=== PATIENT | female | born 1945 | race Caucasian/White ===

== ENCOUNTER 2020-03-04 15:09 | Outpatient (REF) | payer MEDICARE, SELFPAY | END 2020-03-04 15:10 | disposition home or self-care (01) | LOC: HO.HMGCLDS 15:09 | PROVIDERS: PCP Internal Medicine; Visit Provider Internal Medicine | DX: Z20.828 Contact with and (suspected) exposure to other viral communicable diseases (principal) | CPT/HCPCS: 87635 ==

== ENCOUNTER 2020-06-17 11:49 | Outpatient (REF) | payer MEDICARE, SELFPAY ==
--- NOTE | 2020-06-17 12:02 | XR_ITS ---
EXAMINATION: THORACIC AND LUMBAR SPINE CLINICAL INFORMATION: Low back pain. COMPARISON: None TECHNIQUE: 3 views dorsal spine. 3 views lumbar spine. FINDINGS: DORSAL SPINE: There is normal thoracic kyphosis. There is old T12 compression fracture with cement augmentation. No new acute fracture, dislocation or subluxation seen. No bony abnormality. No lytic process. The paravertebral soft tissues are normal. LUMBAR SPINE: There is normal lumbar lordosis. There is grade 1 anterolisthesis L5 over S1 with loss of L5-S1 disc height. Rest of the disc heights are normal. The vertebral heights are normal. No acute fracture seen. Mild bilateral L5-S1 and L4-L5 facet joint arthropathy is noted. The paravertebral soft tissues are normal XR/XR thoracic spine 3V IMPRESSION: Old T12 compression fracture with cement augmentation. No new acute fracture, dislocation or subluxation seen. Grade 1 anterolisthesis L5 over S1 with loss of L5-S1 disc height. There are is bilateral L5-S1 facet joint arthropathy.
--- NOTE | 2020-06-17 12:02 | XR_ITS ---
EXAMINATION: THORACIC AND LUMBAR SPINE CLINICAL INFORMATION: Low back pain. COMPARISON: None TECHNIQUE: 3 views dorsal spine. 3 views lumbar spine. FINDINGS: DORSAL SPINE: There is normal thoracic kyphosis. There is old T12 compression fracture with cement augmentation. No new acute fracture, dislocation or subluxation seen. No bony abnormality. No lytic process. The paravertebral soft tissues are normal. LUMBAR SPINE: There is normal lumbar lordosis. There is grade 1 anterolisthesis L5 over S1 with loss of L5-S1 disc height. Rest of the disc heights are normal. The vertebral heights are normal. No acute fracture seen. Mild bilateral L5-S1 and L4-L5 facet joint arthropathy is noted. The paravertebral soft tissues are normal XR/XR lumbar spine 2-3V IMPRESSION: Old T12 compression fracture with cement augmentation. No new acute fracture, dislocation or subluxation seen. Grade 1 anterolisthesis L5 over S1 with loss of L5-S1 disc height. There are is bilateral L5-S1 facet joint arthropathy.
== END 2020-06-17 11:50 | disposition home or self-care (01) ==
LOC: HO.HMGCX 11:49
PROVIDERS: PCP Internal Medicine; Visit Provider Nurse Practitioner Family
DX: S39.92XA Unspecified injury of lower back, initial encounter (principal)
CPT/HCPCS: 72072; 72100

== ENCOUNTER 2021-12-06 10:47 | Outpatient (REF) | payer MEDICARE, SELFPAY ==
--- NOTE | ~2021-12-06 | XR_ITS ---
EXAMINATION: XR KNEE, RIGHT CLINICAL INFORMATION: Right knee pain. COMPARISON: None. TECHNIQUE: 4 views of the right knee. FINDINGS: Mild medial compartment joint space narrowing. Mild medial and lateral compartment chondrocalcinosis. Small joint effusion. No fracture or dislocation. Superior patellar enthesophytes. XR/XR knee RT 4V IMPRESSION: Mild medial compartment arthrosis with medial and lateral compartment chondrocalcinosis. Small joint effusion.
== END 2021-12-06 10:48 | disposition home or self-care (01) ==
LOC: HO.HMGCX 10:47
PROVIDERS: PCP Internal Medicine; Visit Provider Physician Assistant
DX: M25.561 Pain in right knee (principal)
CPT/HCPCS: 73564

== ENCOUNTER 2025-01-16 14:08 | Outpatient (REF) | payer MEDICARE, SELFPAY ==
--- OUTSIDE RECORDS SUMMARY | 2024-03-28 10:48 | XMS_ITS | Encounter Summary ---
Author Organization [facility] [place] [address] Care Team Providers Care Field Crop I Farmworker Name Role Phone Zeke Carlos MD Primary Care Provider [phone] Encounter Details Date Type Department Care Team (Late st Contact Info) Description 03/28/2024 10:48 AM EDT Hospital Encounter TH HISTORIC ENCOUNTERS EASTERN CONVERSION ONLY Kishan Flynn MD [address] [place] [address] [address] Social History Tobacco Use Types Packs/Day Years Used Date Smoking Tobacco: Former Cigarettes Q uit: 01/08/2018 Smokeless Tobacco: Never Alcohol [...] your loved ones. For example, child care centre director or elderly care for an older [...] Date Recorded What is your living situation? 0 10/14/2024 Interpersonal Safety Answer Date Record ed Physical Abuse 04/14/2024 Verbal Abuse 04/14/2024 Comments No Sex and Gender Information Value Date Recorded Sex Assigned at Female 03/28/2024 10:43 AM EDT Legal Sex Female 2:24 AM EST Gender Identity Female 03/28/2024 10:43 AM EDT Sexual Orientation Straight 03/28/2024 10 :43 AM EDT documented as of this encounter Plan of Treatment Upcoming Encounters Date Type Department Care Team (Late st Contact Info) Description 03/02/2025 10:00 AM EDT Ancillary Procedure [facility] - [address] [place] [address] 04/06/2025 10:00 AM EST Office Visit [facility] Hematology Oncology [address] [place] [id number] Kathy Rene DO [address] [place] [address] 04/13/2025 10:30 AM EST Office Visit Vascular Surgery - [place] [address] [address] Ronen Vernon MD [address] [address] 05/06/2025 9:45 AM EST Office Visit Adult Medicine [facility] [place] [address] [place] [address] Zeke Carlos MD [address] [place] [address] documented as of this encounter Procedures Procedure Name Priority Date/Time Associated Diagnosis Comments DR ABDOMEN FLAT AND ERECT Routine 03/28/2024 11:37 AM EDT documented in this encounter Results * DR ABDOMEN FLAT AND ERECT (03/28/2024 11:37 AM EDT) Anatomical Region Laterality Modality Radiographic Leatha ging 03/28/2024 10:5 4 AM EDT Narrative 03/28/2024 11:37 AM EDT [facility] Diagnostic Imaging Department [address] [place] [address] Patient: CYNDIBURKEPRINCESS PEREZ D.O.B./Age/Sex: 1945 - 78 - F Unit#: [id number] Location/Status: SPDIGEN/REG CLI Mnemonic[facility] Ordering Physician: KISHAN FLYNN MD DR Abdomen [...] seen. IMPRESSION: Nonobstructive bowel gas pattern. Code 36981 Dictating Physician: YESI KULKARNI MD Electronically Signed by: YESI KULKARNI MD Dic Date/Time: 03/28/24 1136 Sign date/Time: 03/28/24 1137 Procedure Note Yesi Kulkarni MD - 03/29/2024 [facility] Diagnostic Imaging Department [address] [place], [place] [id number] Patient: PRINCESS EUCEDA Melissa AlbrechtB./Age/Sex: 1945 - 78 - F Unit#: [id number] Location/Status: SPDIGEN/REG CLI Mnemonic/Ordering Site: [facility] Ordering Physician: KISHAN FLYNN MD DR Abdomen [...] seen. IMPRESSION: Nonobstructive bowel gas pattern. Code 52407 Dictating Physician: YESI KULKARNI MD Electronically Signed [...] documented as of this encounter Care Teams Field Crop I Farmworker Relationship Specialty Start Date End Date Zeke Carlos MD [address] [place] [address] PCP - General Internal Medicine 03/16/21 documented as of this encounter
--- OUTSIDE RECORDS SUMMARY | 2025-01-17 11:27 | XMS_ITS | Clinical Summary ---
Author Organization [facility] Address [address] [place] [address] Phone Care Team Providers Care Tunnel Heading Supervisor Name Role Phone JeradParminder Ursulasneha Adams DO [...] [employer] [place] [employer]AC[employer] Care Teams Tunnel Heading Supervisor Relationship Specialty Start Date End Date Ursula Alcala DO [address] [place] [address] PCP - General Internal Medicine 12/24/18 Additional Source Comments The information contained in this document represents components of the legal health record. It is not the complete legal health record.[facility]
--- OUTSIDE RECORDS SUMMARY | 2025-01-17 11:27 | XMS_ITS | Encounter Summary ---
Author Organization [facility] Address [address] [place] [address] Care Team Providers Care Patient Services Manager Name Role Phone Zeke Carlos MD Primary Care Provider [phone] Encounter Details Date Type Department Care Team Description 04/25/2021 E-Visit [facility] Oncology Services [address] [place] [address] Aki Peña MD Social History Tobacco Use [...] on filedocumented in this encounter Care Teams Patient Services Manager Relationship Specialty Start Date End Date Zeke Carlos MD PCP - General Internal Medicine 11/23/21 documented as of this encounter
[2025-01-17 12:10] LABS: Resp Syncy Virus RNA Qual PCR NEGATIVE (Negative); SARS COV2 PCR INHOUSE NEGATIVE (Negative)
== END 2025-01-16 14:09 | disposition home or self-care (01) ==
LOC: HO.LNP 14:08
PROVIDERS: PCP Internal Medicine; Visit Provider Physician Assistant Medical
DX: J00 Acute nasopharyngitis [common cold] (principal); J06.9 Acute upper respiratory infection, unspecified; R09.89 Other specified symptoms and signs involving the circulatory and respiratory systems; H92.01 Otalgia, right ear
CPT/HCPCS: 87637; 99212

== ENCOUNTER 2025-01-16 14:08 | Outpatient (AMB) | payer MEDICARE, SELFPAY ==
--- OUTSIDE RECORDS SUMMARY | 2023-09-12 10:30 | XMS_ITS ---
Author Organization [facility] Address [address] [place] [address] Care Team Providers Care Bolter Helper Name Role Phone Breanna VÁSQUEZ, Zeke Blake Primary Care Provider Unav ailable Black, Shiela Unavailable [phone] Aziza Sultana Unavailable [phone] REASON FOR VISIT Seen Sooner Encounters Encounter Location Date Provider Diagnosis [facility] [address] [place] [address] 09/12/2023 Aziza Sultana Plan Of Treatment No Information Progress Notes * Carissa EUCEDAJaneB:1945 (79 yo F)Acc No.[id number]:09/12/2023 Progress Note Patient: Carmen MYERS Provider: Usama Sultana DPM :1945 A ge:77 Y S ex:Female Date:09/12/2023 Address:[address] [id number] Pcp:Zeke Carlos MD Subjective: * Chief Complaints: * 1 . Seen Sooner. * Medical History: Objective: * Vitals: Assessment: Plan: * Treatment: * Images: * The named appointment provid er may or may not be the originator of this progress note, and it is not deemed complete until electronically signed by the appointment provider. Sign off status: Pending * Provider: Usama Sultana DPM Date: 0 09/12/2023 Generated for Printi ng/Faninag/eTransmitting on: 0 01/16/2025 02:10 PM EDT
--- OUTSIDE RECORDS SUMMARY | 2024-03-28 10:48 | XMS_ITS | Encounter Summary ---
Author Organization [facility] [place] [address] Care Team Providers Care Therapeutic Dietitian Name Role Phone Zeke Carlos MD Primary Care Provider [phone] Encounter Details Date Type Department Care Team (Late st Contact Info) Description 03/28/2024 10:48 AM EDT Hospital Encounter TH HISTORIC ENCOUNTERS EASTERN CONVERSION ONLY Kishan Flynn MD [address] [place] [address] [address] Social History Tobacco Use Types Packs/Day Years [...] care for your loved ones. For example, exceptional children teacher assistant or elderly care for an older [...] Description 03/02/2025 10:00 AM EDT Ancillary Procedure [facility] - [address] [place] [address] 04/06/2025 10:00 AM EST Office Visit [facility] Hematology Oncology [address] [place] [phone] Kathy Rene DO [address] [place] [address] 04/13/2025 10:30 AM EST Office Visit Vascular Surgery - [place] [address] [address] Ronen Vernon MD [address] [address] 05/06/2025 9:45 AM EST Office Visit Adult Medicine [facility] [place] [address] [place] [address] Zeke Carlos MD [address] [place] [address] documented as of this encounter Procedures Procedure Name Priority Date/Time Associated Diagnosis Comments DR ABDOMEN FLAT AND ERECT Routine 03/28/2024 11:37 AM EDT documented in this encounter Results * DR ABDOMEN FLAT AND ERECT (03/28/2024 11:37 AM EDT) Anatomical Region Laterality Modality Radiographic Leatha ging 03/28/2024 10:5 4 AM EDT Narrative 03/28/2024 11:37 AM EDT [facility] Diagnostic Imaging Department [address] [place] [address] Patient: CYNDIBURKEPRINCESS PEREZ D.O.B./Age/Sex: 1945 - 78 - F Unit#: [id number] Location/Status: SPDIGEN/REG CLI Mnemonic[facility] Ordering Physician: KISHAN FLYNN MD DR Abdomen [...] seen. IMPRESSION: Nonobstructive bowel gas pattern. Code 74220 Dictating Physician: YESI KULKARNI MD Electronically Signed by: YESI KULKARNI MD Dic Date/Time: 03/28/24 1136 Sign date/Time: 03/28/24 1137 Procedure Note Yesi Kulkarni MD - 03/29/2024 [facility] Diagnostic Imaging Department [address] [place], [place] [phone] Patient: PRINCESS EUCEDA Melissa AlbrechtB./Age/Sex: 1945 - 78 - F Unit#: [id number] Location/Status: SPDIGEN/REG CLI Mnemonic/Ordering Site: [facility] Ordering Physician: KISHAN FLYNN MD DR Abdomen [...] seen. IMPRESSION: Nonobstructive bowel gas pattern. Code 39057 Dictating Physician: YESI KULKARNI MD Electronically Signed [...] documented as of this encounter Care Teams Therapeutic Dietitian Relationship Specialty Start Date End Date Zeke Carlos MD [address] [place] [address] PCP - General Internal Medicine 03/16/21 documented as of this encounter
--- OUTSIDE RECORDS SUMMARY | 2025-01-16 14:10 | XMS_ITS ---
Author Name [facility] Organization [facility] Care Team Organization Name Specialty Phone Email Start Date End Da te [facility] Primary Care 04/04/2022 01/14/2024
--- OUTSIDE RECORDS SUMMARY | 2025-01-16 14:10 | XMS_ITS | Clinical Summary ---
Author Organization [facility] Address [address] [place] [address] Phone Care Team Providers Care Camera Systems Engineer Name Role Phone JeradParminder Ursulasneha Adams DO Primary Car e Provider Allergies Active Allergy Reactions Criticality Noted Date Comments Dc GI Upset 07/07/2005 Social History Tobacco Use Types Packs/Day Years Used Date Smoking Tobacco: Never Assessed Education Answer Date Recorded Are you interested in more education? Not on nela e 01/14/2024 Are you concerned about learning? Not on file 01/14/2024 No 01/14/2024 No 01/14/2024 Digital Access Answer Date Recorded No 01/14/2024 No 01/14/2024 Reliable internet access at home? Not on file 01/14/2024 Device with a working camera? Not on file Comments Unknown Sex and Gender Information Value Date Recorded Sex Assigned at Not on file Legal Sex Female 7:50 PM EST Gender Identity Not on file Sexual Orientation Not on file Plan of Treatment Health Maintenance Due Date Last Done Comments LIPID PANEL 1945 DEPRESSION SCREENING 1958 SMOKING Hx and SMOKELESS TOBACCO SCREENING 12/24/1959 HEPATITIS C SCREENING 1964 OSTEOPOROSIS SCREENING INITIAL (ONE-TIME) 12/24/2011 RSV VACCINE (1 - 1-dose 75+ series) 2021 COVID-19 VACCINE ( season) 2024 07/21/2020, 07/02/2020, 06/30/2020 Adult Td,Tdap Booster 02/25/2029 02/25/2019, 009 PNEUMOCOCCAL VACCINES (50+ years) Completed 12/29/2016, 03/02/2015, 01/30/2012, Additional history exists ZOSTER VACCINES Completed 05/04/2019, 01/21/2019 HEPATITIS A VACCINES Aged Out No long er eligible based on patient's age to complete this topic HIB VACCINES Aged Out No longer eligi ble based on patient's age to complete this topic MENINGOCOCCAL VACCINES (ACWY) Aged Out No longer eligible based on patient's age to complete this topic MENINGOCOCCAL VACCINES (B) Aged Out N o longer eligible based on patient's age to complete this topic Medical Devices Not on file Insurance [employer] [place] [place] H[employer] REPL[employer]EMENT [employer] [place] REPLACEMENT [employer] REPLACEMENT [employer]ACEMENT Care Teams Camera Systems Engineer Relationship Specialty Start Date End Date Ursula Alcala DO [address] [place] [address] PCP - General Internal Medicine 12/24/18 Additional Source Comments The information contained in this document represents components of the legal health record. It is not the complete legal health record.[facility]
--- OUTSIDE RECORDS SUMMARY | 2025-01-16 14:10 | XMS_ITS | Encounter Summary ---
Author Organization [facility] Address [address] [place] [address] Care Team Providers Care Progress Worker Name Role Phone Zeke Carlos MD Primary Care Provider [phone] Encounter Details Date Type Department Care Team Description 04/25/2021 E-Visit [facility] Oncology Services [address] [place] [address] Aki Peña MD Social History Tobacco Use Types Packs/Day Years Used Date Smoking Tobacco: Former Cigarettes Q uit: 01/08/2018 Smokeless Tobacco: Never Alcohol Use Standard Drinks/Week Comments Yes 3 (1 standard drink = 0.6 oz pur e alcohol) Sex and Gender Information Value Date Recorded Sex Assigned at Not on file Gender Identity Not on file Sexual Orientation Not on file Job Start Date Occupation Industry Not on file Not on file Not on file COVID-19 Exposure Response Date Recorded In the last month, have you been in contact with someone who was confirmed or suspected to have Coronavirus / COVID-19? No / Unsure 04/20/2021 8:57 AM EST documented as of this encounter Plan of Treatment Not on file documented as of this encounter Visit Diagnoses Not on filedocumented in this encounter Care Teams Progress Worker Relationship Specialty Start Date End Date Zeek Carlos MD PCP - General Internal Medicine 11/23/21 documented as of this encounter
[2025-01-16 14:39] VITALS: BP 138/56; PULSE 58; TEMP 36.9; O2SAT 95; BMI 25.0
--- NOTE | 2025-01-16 14:39 | AM.OFFWIN_ITS ---
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 Intake Note: pt presents with stabbing pain right inferior head, sinus and chest congestion with productive cough and severe right ear pain Allergies levofloxacin (From Levaquin) Allergy (Intermediate, Verified 01/16/25 14:45) diarrhea and vomiting codeine (CODEINE) Allergy (Unknown, Unverified 12/06/21 10:30) STOMACH UPSET cephalexin (From Keflex) Adverse Reaction (Intermediate, Verified 01/16/25 14:45) Diarrhea and vomiting Do you need a note to return to daycare/school/sports/work: No HPI HPI Comments History of Present Illness Details History - The patient is a 79-year-old female pr esenting with symptoms following a fall and upper respiratory infection symptoms. - The patient experienced a fall from be d last week, resulting in head pain. - She developed upper respiratory infect ion symptoms this week, including a runny nose, sore throat, and cough producing sputum. - The patient reports ear pain, particul tyler when lying on the right side. - She has a history of using inhalers an d received an RSV and pneumonia vaccination recently. - She has pain when she touches her head but she has no lumps or bruising. - She has been taking Tylenol with littl e relief of symptoms. - She denies fever, chills, CP, SOB, abd pain, n/v/d. Physical Exam General: Cooperative, healthy appearing, comfortable and no acute distress Orientation/consciousness: Patient oriented x3 Limitations: No limitations Head: Normal to inspection. No TTP of the head. Ears: Hearing grossly normal bilaterally, external ears normal and TM's normal bilaterally Nose: Normal external nose present, normal nares present, and no nasal discharge present. Face and sinus: Sinuses nontender to palpation. Mouth: Normal oral and palatal mucosa present and moist mucous membranes noted. Throat: Tonsils normal. Uvula is midline. Posterior oropharynx with erythema and no exudates. Eyes: Appearance normal, both eyes and all related structures Neck: Normal visual inspection, full ROM. No lymphadenopathy noted. Respiratory: Clear to auscultation bilaterally. Normal respiratory effort, able to speak in complete sentences. No respiratory distress, not tachypneic, no tripod positioning and no use of accessory muscles. Cardiovascular: Regular rate and rhythm. Normal S1 and S2 Skin: No rashes or lesions noted. Patient was informed and verbally consented to the use of an ambient scribe for clinic note documentation during this visit Review of Systems Const All systems reviewed & are unremarkable except as noted in HPI and below Physical Exam Vital Signs: Last Vital Signs Temp 98.4 F 01/16/25 14:39 Pulse 58 01/16/25 14:39 BP 138/56 L 01/16/25 14:39 Pulse Ox 95 01/16/25 14:39 Oxygen Delivery Method Room Air 01/16/25 14:39 BMI result Body Mass Index 25.0 Assessment & Plan Assessment & Plan (1) URI (upper respiratory infection): Code(s): J06.9 - Acute upper respiratory infection, unspecified Qualifiers: URI type: acute nasopharyngitis (common cold) Qualified Code(s): J00 - Acute nasopharyngitis [common cold] Plan Most likely URI vs viral illness vs covid vs flu vs RSV Plan - Conducted flu, COVID-19, and RSV testing to determine viral etiology of symptoms. - Prescribed cough medicine and decongestant to alleviate respiratory symptoms. - Advised monitoring for any rash development to rule out shingles on her scalp. - Recommended follow-up if symptoms persist or worsen. - follow up with her PCP Orders: Orders SARS-CoV2/FLU/RSV Today R09.89 - Other specified symptoms and signs involving the circulatory and respiratory systems Medications: New benzonatate 100 mg PO bid-tid PRN 21 caps 0RF Cough 7 days cetirizine-pseudoephedrine 5-120 mg ER 1 tab PO BID 14 tabs 0RF 7 days Coding Level of Care Code Est Pt Level 3 (67590) Diagnoses Acute nasopharyngitis J00 URI type: acute nasopharyngitis (common cold)
== END 2025-01-16 15:25 | disposition home or self-care (01) ==
PROVIDERS: PCP Internal Medicine; Visit Provider Physician Assistant Medical
DX: J00 Acute nasopharyngitis [common cold] (principal)

== ENCOUNTER 2025-03-11 11:27 | Outpatient (REF) | payer MEDICARE, SELFPAY ==
--- NOTE | ~2025-03-11 | XR_ITS ---
EXAMINATION: XR ANKLE, RIGHT CLINICAL INFORMATION: M25.571 - Pain in right ankle and joints of right foot COMPARISON: None available. TECHNIQUE: AP, lateral, and mortise views of the right ankle. FINDINGS: Postsurgical changes, with intramedullary anna in the distal fibula, distal screw. There are 2 screws extending across the distal tibia-fibula syndesmosis. There is subtle lucency along the inferior screw. Hardware is intact. No acute fracture is identified. No talar dome OCD. Ankle mortise is slightly asymmetric, which could be related to positioning/technique. Subtalar articulation is maintained. No acute fracture of the fifth metatarsal. No significant ankle joint effusion. No abnormal soft tissue calcification. Mild lateral soft tissue prominence/swelling. XR/XR ankle RT min 3V IMPRESSION: Postsurgical changes with orthopedic hardware in the distal fibula. Subtle lucency along one of the 2 screws extending across the distal tibia-fibula syndesmosis. Electronically signed by: Ricardo Lewis MD 03/11/2025 01:26 PM EDT
== END 2025-03-11 11:28 | disposition home or self-care (01) ==
LOC: HO.HMGCX 11:27
PROVIDERS: PCP Internal Medicine; Visit Provider Physician Assistant
DX: I10 Essential (primary) hypertension (principal); M25.571 Pain in right ankle and joints of right foot; M62.830 Muscle spasm of back; Z79.899 Other long term (current) drug therapy; Z79.02 Long term (current) use of antithrombotics/antiplatelets
CPT/HCPCS: 73610; 99212

== ENCOUNTER 2025-03-11 11:27 | Outpatient (AMB) | payer MEDICARE, SELFPAY ==
[2025-03-11 12:28] VITALS: BP 160/68; PULSE 78; TEMP 36.9; O2SAT 97; BMI 26.0
--- NOTE | 2025-03-11 12:28 | AM.OFFWIN_ITS ---
Intake Vital Signs 03/11/25 12:28 03/11/25 13:25 Height 5 ft 5 in Weight 156 lb BMI 26.0 BP 160/68 H 150/70 H Blood Pressure Location Lt brachial Lt brachial Position Sitting Sitting Pulse 78 Pulse Source Pulse Oximeter Temp 98.5 F Temp Source Oral Pulse Oximetry (%) 97 Oxygen Delivery Method Room Air Intake Visit Reasons: EP-neck stiffness, lt hand numbness, shoulder pain Intake Note: pt presents with left hand swelling, left shoulder pain and neck pain Allergies levofloxacin (From Levaquin) Allergy (Intermediate, Verified 03/11/25 12:31) diarrhea and vomiting codeine (CODEINE) Allergy (Unknown, Verified 03/11/25 12:31) STOMACH UPSET cephalexin (From Keflex) Adverse Reaction (Intermediate, Verified 03/11/25 12:31) Diarrhea and vomiting Do you need a note to return to daycare/school/sports/work: No HPI HPI Comments History of Present Illness Details History - The patient is a 79-year-old female pr esenting with musculoskeletal pain and ankle tenderness. - Musculoskeletal pain began 4 days ago after dinner with neck stiffness, progressing to shoulder stiffness and hand swelling. The hand swelling resolved, she has no history of gout. Back pain feel heavy and it is mid to upper back. - Pain persisted despite taking Tylenol and worsened by the next morning. - No recent changes in activity or postu re noted. She denies any new pillows or mattresses or changing in her sleeping positions. - she saw her primary care doctor who di d x-rays and they showed age-related degenerative changes in the neck. - 5mg Cyclobenzaprine and heating pad pr ovided minimal relief. - Hypertension noted with a reading of 1 60/68 mmHg, slightly elevated for the patient. - Current medications include amlodipine and clopidogrel. Her PCP is currently holding the metoprolol. - Ankle tenderness with no history of re cent injury, previous fracture 7 years ago. She states it has been tender for a few days and her PCP did not really acknowledge this when she complained about it, they are more focused on her blood pressure. She said the side of her ankle was very red yesterday. Physical Exam General: cooperative, healthy appearing and comfortable, patient oriented x3 Head: Yes normal to inspection and Yes normocephalic General nose exam: Normal external nose present Face and sinus: Yes normal facial exam Effort & Inspection: normal respiratory effort and able to speak in complete sentences Back/spine: no CVA tenderness bilaterally cervical, thoracic and lumbar spine normal to inspection cervical ROM normal, thoracic ROM normal, lumbar ROM normal no Cervical, thoracic or lumbar spine tenderness no ttp throughout back. Extremities: moving all extremities normally. right posterior lateral malleolus with ttp, remainder of ankle is nontender, slight erythema of this area as well, no ecchymosis, no other skin changes, no edema of the ankle or foot. full ROM right ankle. no ttp dorsal or posterior aspect of foot, full ROM toes and NVI. Review of Systems - Musculoskeletal: Reports neck stiffnes s, shoulder stiffness, and hand swelling. - Cardiovascular: Reports elevated blood pressure, denies chest pain. - Endocrine: Denies diabetes. - Neurological: Denies numbness or tingl ing. All systems reviewed and are unremarkable except as noted in HPI Physical Exam Vital Signs: Last Vital Signs Temp 98.5 F 03/11/25 12:28 Pulse 78 03/11/25 12:28 BP 150/70 H 03/11/25 13:25 Pulse Ox 97 03/11/25 12:28 Oxygen Delivery Method Room Air 03/11/25 12:28 BMI result Body Mass Index 26.0 Assessment & Plan Assessment & Plan (1) Acute right ankle pain: Code(s): M25.571 - Pain in right ankle and joints of right foot Plan: Plan - Order x-ray for right ankle to rule out fracture due to tenderness. - Xray showing: There are 2 screws extending across the distal tibia-fibula syndesmosis. There is subtle lucency along the inferior screw. Hardware is intact. Recommended patient follow up with the surgeon who did her ankle surgery at [facility]. Patient was informed and verbally consented to the use of an ambient scribe for clinic note documentation during this visit. (2) Muscle spasm of back: Code(s): M62.830 - Muscle spasm of back Plan: - Recommend increasing cyclobenzaprine dosage to 10 mg for muscle spasms. - Continue using heating pads and consider using heat patches for additional relief. (3) Elevated blood pressure reading in office with diagnosis of hypertension: Code(s): I10 - Essential (primary) hypertension Plan: - Monitor blood pressure and consult primary care physician for hypertension management. - Repeat BP improved at 150/70 Orders: Orders XR ankle RT min 3V Today M25.571 - Pain in right ankle and joints of right foot Coding Level of Care Code New Pt Level 5 (06710) Diagnoses Acute right ankle pain M25.571 Muscle spasm of back M62.830 Elevated blood pressure reading in office with diagnosis of hypertension I10
[2025-03-11 13:25] VITALS: BP 150/70
--- OUTSIDE RECORDS SUMMARY | 2025-03-11 14:24 | XMS_ITS | Data Portability ---
Author Organization GEMA Mcintosh s, [address] Address [address] [place] [address] Assessment No assessment recorded. Plan of Treatment Reminders Order Date Submit Date Provider Last Modified By Organization Details Last Modified Time Details Appointments None record ed. Lab None record ed. Referral None record ed. Procedures None record ed. Surgeries None record ed. Imaging None record ed. Medication Orders None record ed. Patient TargetsNo targets recorded. Patient InstructionsNo instructions recorded. Reason for Referral None Reported. Medical Equipment None Reported. Medications Name Sig Start Date Stop Date Status Note LastModified by Organization Details LastModified Time bupropion HCl SR 150 mg tablet,12 hr sustained-rele ase TAKE 1 TABLET BY MOUTH ONCE DAILY active Not Available Not Available No t Available lorazepam 0.5 mg tablet TAKE 1 TABLET BY MOUTH AT BEDTIME active Not Available Not Available No t Available amlodipine 5 mg-benazepril 10 mg capsule TAKE 1 CAPSULE BY MOUTH ONCE DAILY active Not Available Not Available No t Available neomycin-polym yxin-dexameth 3.5 mg/mL-10,000 unit/mL-0.1% eye drops INSTILL 1 DROP INTO RIGHT EYE 4 TIMES DAILY FOR 5 DAYS active Not Available Not Available No t Available omeprazole 20 mg capsule,delaye d release TAKE 1 CAPSULE BY MOUTH ONCE DAILY active Not Available Not Available No t Available montelukast 10 mg tablet TAKE 1 TABLET BY MOUTH AT BEDTIME active Not Available Not Available No t Available albuterol sulfate HFA 90 mcg/actuation aerosol inhaler INHALE 2 PUFFS BY MOUTH EVERY 4 HOURS NEEDED FOR COUGH OR WHEEZING active Not Available Not Available No t Available escitalopram 10 mg tablet TAKE 1 TABLET BY MOUTH ONCE DAILY active Not Available Not Available No t Available ezetimibe 10 mg tablet TAKE 1 TABLET BY MOUTH ONCE DAILY active Not Available Not Available No t Available BinaxNOW COVID-19 Ag Self Test kit TEST DIRECTED TODAY active Not Available Not Available No t Available Vitals None Recorded Social History None recorded. Functional Status None recorded. Mental Status None recorded. Family History Nothing Reported. Medical History No medical history recorded. Gynecological HistoryNo gynecological history recorded. Obstetrics History GPAL:G 0 P 0 0 0 0 Past Encounters Encounter ID Performer Location Encounter Start Date Encounter Closed Date Diagnosis/Indication Diagnosis SNOMED-CT Code Diagnosis ICD10 Code Diagnosis IMO Codes Diagnosis Note [id number] [address] [place] [address] 02/23/2015 18:35:56 02/23/2015 20:03:19 [id number] [address] [place] [address] 06/05/2017 12:16:53 06/05/2017 13:08:15 [id number] [address] [place] [address] 07/15/2018 19:22:28 07/15/2018 20:29:19 [id number] [address] [place] [address] 12/03/2018 19:26:40 12/03/2018 20:00:04 [id number] [address] [place] [address] 10/23/2020 13:41:04 10/23/2020 14:57:33 [id number] [address] [place] [address] 12/10/2018 19:42:18 12/10/2018 19:55:53 [id number] [address] [place] [address] 10/01/2016 13:08:27 10/01/2016 13:34:25 [id number] [address] [place] [address] 06/03/2018 11:29:30 06/03/2018 11:59:16 [id number] [address] [place] [address] 12/21/2016 12:07:00 12/21/2016 12:48:29 [id number] [address] [place] [address] 10/10/2020 10:26:24 10/10/2020 11:58:18 [id number] [address] [place] [address] 11/03/2016 10:21:59 11/03/2016 11:11:27 Health Concerns Section Related Observation LastModified by Organization Detai ls LastModified Time None Recorded Concern Status LastModified by Organization Details LastModified Time None Recorded Advance Directives Directive None Recorded Payers Insurance Date Sequence Insurance Name Policy Number Policy Jenkins Covered Member ID Jenkins Member ID Guarantor Name 06/30/2022 1 [facility] [id number] Carmen Grace [id number] Carmen Grace OBGyn Episode No OBEpisode recorded.
--- OUTSIDE RECORDS SUMMARY | 2025-03-11 14:24 | XMS_ITS | Data Portability ---
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 Therefore, no intervention is currently necessary. Reviewed that this often resolves in time without therapy. Recommend vocal hygiene measures and return in 3-4 months for re-evaluation. Reviewed with patient indications to call the office in the interim with new or worsening throat complaints. All questions were answered. Patient also evaluated by Jaquelin goodman Not available 03/17/2024 16:16:59 Plan of Treatment Reminders Order Date Submit Date Provider Last Modified By Organization Details Last Modified Time Details Appointments None record ed. Lab None record ed. Referral None record ed. Procedures None record ed. Surgeries None record ed. Imaging None record ed. Medication Orders None record ed. Patient TargetsNo targets recorded. Patient InstructionsNo instructions recorded. Reason for Referral None Reported. Results Created Date Observation Date Name Description Value Unit Range Abnormal Flag Note LastModifiedBy Organization Detail LastModifiedTime 03/18/2009/23/2023 CT, chest , w/o contr ast No observ ation record ed. [email or web address] Not Available 2023 10:11:47 03/18/20 24 12/19/2023 CT, chest , w/o contr ast No observ ation record ed. [email or web address] Not Available 2023 10:11:47 Result Notes None recorded. 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 Procedures Surgical History Date Name Laterality Status Provider Name and Address Organization Details Recorded Time 03/17/20 24 Fiberoptic Laryngoscopy (Comprehensive) completed Jaquelin Pickard [place] - [facility] 03/17/2024 16:06:41 Appendectomy completed Obdulia Tate [facility] 03/17/2024 15:29:13 Cataract Surgery completed Obdulia Tate [place] [facility] 03/17/2024 15:29:18 Hysterectomy completed Obdulia Tate [place] [facility] 03/17/2024 15:29:25 lithotripsy completed Obdulia Tate [facility] 03/17/2024 15:29:33 lobectomy of lung completed Obdulia Tate [facility] 03/17/2024 15:29:51 Imaging Results None recorded. Procedure Notes None recorded. Medical Equipment None Reported. Allergies No known drug allergies Medications Name Sig Start Date Stop Date Status Note LastModified by Organization Details LastModified Time bupropion HCl SR 150 mg tablet,12 hr sustained-r elease TAKE 1 TABLET BY MOUTH ONCE DAILY active Not Available Not Available No t Available prednisone 10 mg tablet TAKE 4 TABS BY MOUTH DAILY IN THE MORNING FOR 3 DAYS, THEN TAKE 3 TABS DAILY IN THE MORNING FOR 3 DAYS, THEN TAKE 2 TABS IN THE MORNING FOR 2 DAYS, THEN TAKE 1 TABLET IN THE MORNING FOR 2 DAYS 03/17 completed Not Available Not Available Not Available doxycycline hyclate 100 mg capsule TAKE 1 CAPSULE BY MOUTH ONCE DAILY 03/17 completed Not Available Not Available Not Available senna 8.6 mg tablet TAKE 2 TABLETS BY MOUTH AT BEDTIME 03/17 completed Not Available Not Available Not Available sucralfate 1 gram tablet TAKE 1 TABLET BY MOUTH THREE TIMES DAILY 03/17 completed Not Available Not Available Not Available meclizine 12.5 mg tablet TAKE 1 TABLET BY MOUTH TWICE DAILY NEEDED FOR DIZZINESS 03/17 completed Not Available Not Available Not Available amlodipine 2.5 mg tablet 10 mg every day by oral route. 2023 active Not Available Not Available Not Avai lable omeprazole 40 mg capsule,del ayed release TAKE 1 CAPSULE BY MOUTH ONCE DAILY 03/17 completed Not Available Not Available Not Available doxycycline monohydrate 100 mg tablet TAKE 1 TABLET BY MOUTH TWICE DAILY FOR 7 DAYS 03/17 completed Not Available Not Available Not Available amlodipine 10 mg tablet TAKE 1 TABLET BY MOUTH ONCE DAILY active Not Available Not Available No t Available benzonatate 100 mg capsule TAKE 1 CAPSULE BY MOUTH THREE TIMES DAILY NEEDED FOR COUGH FOR 7 DAYS 03/17 completed Not Available Not Available Not Available docusate sodium 100 mg capsule TAKE 1 CAPSULE BY MOUTH TWICE DAILY 03/17 completed Not Available Not Available Not Available omeprazole 20 mg capsule,del ayed release TAKE 1 CAPSULE BY MOUTH ONCE DAILY active Not Available Not Available No t Available montelukast 10 mg tablet TAKE 1 TABLET BY MOUTH AT BEDTIME active Not Available Not Available No t Available hydrochloro thiazide 25 mg tablet TAKE 1 TABLET BY MOUTH ONCE DAILY 03/17 completed Not Available Not Available Not Available scopolamine 1 mg over 3 days transdermal patch APPLY 1 PATCH TOPICALLY EVERY 72 HOURS FOR VERTIGO 03/17 completed Not Available Not Available Not Available benazepril 40 mg tablet TAKE 1 TABLET BY MOUTH ONCE DAILY active Not Available Not Available No t Available albuterol sulfate HFA 90 mcg/actuati on aerosol inhaler INHALE 2 PUFFS BY MOUTH EVERY 4 HOURS NEEDED FOR COUGH OR WHEEZING active Not Available Not Available No t Available ondansetron 4 mg disintegrat ing tablet DISSOLVE 1 TABLET IN MOUTH ONCE DAILY 03/17 completed Not Available Not Available Not Available fluticasone propionate 50 mcg/actuati on nasal spray,suspe nsion USE 2 SPRAY(S) IN EACH NOSTRIL ONCE DAILY active Not Available Not Available No t Available oxycodone 5 mg tablet TAKE 1 TABLET BY MOUTH EVERY 4 HOURS NEEDED FOR PAIN 03/17 completed Not Available Not Available Not Available amlodipine 10 mg-benazepr il 20 mg capsule TAKE 1 CAPSULE BY MOUTH ONCE DAILY 03/17 completed Not Available Not Available Not Available escitalopra m 20 mg tablet TAKE 1 TABLET BY MOUTH ONCE DAILY active Not Available Not Available No t Available ezetimibe 10 mg tablet TAKE 1 TABLET BY MOUTH ONCE DAILY active Not Available Not Available No t Available metoprolol tartrate 25 mg tablet TAKE 1 TABLET BY MOUTH TWICE DAILY active Not Available Not Available No t Available hydrochloro thiazide 12.5 mg tablet TAKE 1 TABLET BY MOUTH ONCE DAILY DOSE DECREASE 03/17 completed Not Available Not Available Not Available peg 3350-electr olytes 236 gram-22.74 gram-6.74 gram-5.86 gram solution MIX THEN DRINK 8 OUNCE GLASSES BY MOUTH DIRECTED. FOLLOW PREP INSTRUCTI ONS GIVEN BY YOUR DOCTORS OFFICE 03/17 completed Not Available Not Available Not Available Vitals Date Recorded Body height Body mass index (BMI) Body weight Provider Name and Address Organization Details Last Updated DateTime 06/18/2024 165.1 cm 22 kg/m2 89024.19 g Fady Cotto [facility] 06/18/2024 10:30:05 Social History None recorded. Functional Status None recorded. Mental Status None recorded. Family History Nothing Reported. Medical History Condition Response Anxiety Y Hyperlipidemia Y Cancer Y Depression Y Asthma Y Hypertension Y Gynecological HistoryNo gynecological history recorded. Obstetrics History GPAL:G 0 P 0 0 0 0 Past Encounters Encounter ID Performer Location Encounter Start Date Encounter Closed Date Diagnosis/Indication Diagnosis SNOMED-CT Code Diagnosis ICD10 Code Diagnosis IMO Codes Diagnosis Note [id number] FLOR CONDE MD [facility] [address] [address] 03/17/2024 15:12:42 03/17/2024 17:01:30 Paralysis of left vocal cord 367095776 J38.01 History of primary malignant neoplasm of lung 901982552 Z85.118 Hoarse 13306890 R49.0 [id number] FLOR CONDE MD [facility] [address] [address] 06/18/2024 10:13:53 06/18/2024 10:51:40 Paralysis of left vocal cord 118043444 J38.01 Patient appears to have a well compensate d left vocal fold paralysis. Her voice has improved and is only minimally hoarse. She is quite happy with the improvemen t. She has no eating or drinking concerns. We discussed that if she has any procedures on her right neck or anything that might put her right vocal fold at risk she needs to be aware and make sure the anesthesia team understand s it is her left vocal fold is paralyzed but compensate d. Hoarse 07251777 R49.0 History of primary malignant neoplasm of lung 106314722 Z85.118 follow with thoracic surgery Health Concerns Section Related Observation LastModified by Organization Detai ls LastModified Time None Recorded Concern Status LastModified by Organization Details LastModified Time None Recorded Advance Directives Directive None Recorded Payers Insurance Date Sequence Insurance Name Policy Number Policy Jenkins Covered Member ID Jenkins Member ID Guarantor Name 07/04/2024 1 [facility] [id number] 01 Carmen Grace [id number] Carmen Grace 07/04/2024 1 [facility] - MEDICARE ADVANTAGE PLAN (MEDICARE REPLACEMENT HMO) [id number] 01 Carmen Grace [id number] Carmen Grace Notes Date Note Type Note Provider Name and Address Organization Details Recorded Time 03/17/2024 text/html ROS as noted in the HPI 78 year old female with history of prior lung cancers on the right side and stereotactic radiation for a nodule in the left upper lobe which ended in September. A few weeks later she noticed some change to the voice. Finds it very frustrating because people cannot hear her well and she repeats herself often, though she does note it has improved since onset. Not all the way back to baseline. She was diagnosed via laryngoscopy by Dr. Miranda with a paralyzed left vocal cord. Her thoracic surgeon Dr. Douglas ordered a chest CT to investigate the recurrent laryngeal nerve, which was normal. Sometimes she has difficulty swallowing; feels like pills get stuck frequently and solids get stuck rarely. Has not required Heimlich maneuver. There is no sore throat, hemoptysis, nor fevers. FLOR SHETH MD [address] [place] [address], [phone], [facility] - [facility] 03/17/2024 16:52:26 06/18/2024 text/html ROS as noted in the HPI Patient seen in follow-up for a left vocal fold paralysis. History of bilateral lung cancerShe has some mesenteric artery stenosis and is in need of a angioplasty which will be happening in the near future Per thoracic surgery:Ms. Grace is a 78-year-old female who has had multiple bilateral lung cancers in the past. On the right side she had a right upper lobe posterior segmentectomy and right lower lobe superior segmentectomy in 2018 for 2 synchronous adenocarcinomas. On the left side she had SBRT to the left upper lobe also in 2018, as well as a left upper lobectomy in September 2023 for two additional early-stage multifocal adenocarcinomas.The patient's most recent surveillance chest CT scan done on 05/13/2024 shows no new or worsening pulmonary nodule, or thoracic adenopathy, to suggest recurrence or new disease. She has several stable pulmonary nodules, including both solid and ground glass.Will continue with routine chest CT surveillance the next of which will be in 6 months, October 2024, with a follow-up visit in our office following this.Patient is seeing Dr. Rene for medical oncology later this month and should she recommend any earlier timing of her CT scan we can certainly cancel our order see her after the scan ordered by oncology.Electronica lly signed by GEMA Lee at 06/04/2024 10:36 AM MARIO SHETH MD [address] [place] [address], [phone], [facility] - [facility] 06/18/2024 10:49:44 OBGyn Episode No OBEpisode recorded.
== END 2025-03-11 13:43 | disposition home or self-care (01) ==
PROVIDERS: PCP Internal Medicine; Visit Provider Physician Assistant
DX: M25.571 Pain in right ankle and joints of right foot (principal); M62.830 Muscle spasm of back; I10 Essential (primary) hypertension

== ENCOUNTER → 2025-03-11 13:09 | Outpatient (BNV) | payer MEDICARE, SELFPAY | PROVIDERS: PCP Internal Medicine; Visit Provider Radiology Diagnostic Ultrasound | DX: M96.671 Fracture of tibia or fibula following insertion of orthopedic implant, joint prosthesis, or bone plate, right leg (principal) | CPT/HCPCS: 73610 ==

== ENCOUNTER 2025-04-29 12:47 | Outpatient (AMB) | payer MEDICARE, SELFPAY ==
--- OUTSIDE RECORDS SUMMARY | 2024-03-28 09:48 | XMS_ITS | Encounter Summary ---
Author Organization [facility] Address [address] [place] [address] Care Team Providers Care Hris Analyst Name Role Phone Zeke Carlos MD Primary Care Provider [phone] Encounter Details Date Type Department Care Team (Late st Contact Info) Description 03/28/2024 10:48 AM EDT Hospital Encounter TH HISTORIC [facility]OUN[facility] Kishan Flynn MD [address] [place] [phone] Social History Tobacco Use Types Packs/Day Years [...] care for your loved ones. For example, child life assistant or elderly care for an older adult? [...] Care Team (Late st Contact Info) Description 05/08/2025 9:45 AM EST Appointment [facility] CT Scan [address] [place] [address] 05/08/2025 11:30 AM EST Appointment [facility] CT Scan [address] [place] [address] 05/11/2025 11:00 AM EST Office Visit Vascular Surgery - [place] [address] [place] [phone] Ronen Vernon MD [address] [place] [address] 05/14/2025 10:30 AM EST Office Visit Thoracic Surgery - [place] 299 [facility] [address] [place] [address] Raine Ballard PA [address] [place] [address] 04/06/2026 10:00 AM EST Office Visit [facility] Hematology Oncology [address] [place] [address] Kathy Rene DO [address] [place] [address] documented as of this encounter Procedures Procedure Name Priority Date/Time Associated Diagnosis Comments DR ABDOMEN FLAT AND ERECT Routine 03/28/2024 11:37 AM EDT documented in this encounter Results * DR ABDOMEN FLAT AND ERECT (03/28/2024 11:37 AM EDT) Anatomical Region Laterality Modality Radiographic Leatha ging 03/28/2024 10:5 4 AM EDT Narrative 03/28/2024 11:37 AM EDT [facility] Diagnostic Imaging Department [address] [place], [place] [phone] Patient: PRINCESS EUCEDA D.O.B./Age/Sex: 1945 - Unit#: [id number] Location/Status: SPDIGEN/REG CLI Mnemonic/Ordering Site: [facility] Ordering Physician: KISHAN FLYNN MD DR Abdomen [...] seen. IMPRESSION: Nonobstructive bowel gas pattern. Code 20827 Dictating Physician: YESI KULKARNI MD Electronically Signed by: YESI KULKARNI MD Dic Date/Time: 03/28/24 1136 Sign date/Time: 03/28/24 1137 Procedure Note Yesi Kulkarni MD - 03/29/2024 [facility] Diagnostic Imaging Department [address] [place] [address] Patient: PRINCESS EUCEDA Melissa Hackett/Age/Sex: 1945 - Unit#: [id number] Location/Status: SPDIGEN/REG CLI Mnemonic[facility] Ordering Physician: KISHAN FLYNN MD DR Abdomen [...] seen. IMPRESSION: Nonobstructive bowel gas pattern. Code 74614 Dictating Physician: YESI KULKARNI MD Electronically Signed [...] documented as of this encounter Care Teams Hris Analyst Relationship Specialty Start Date End Date Zeke Carlos MD [address] [place] [address] PCP - General Internal Medicine 03/16/21 documented as of this encounter
--- NOTE | 2025-04-29 12:54 | AM.OFFWIN_ITS ---
Intake Vital Signs 04/29/25 12:55 Height 5 ft 5 in Weight 70.76 kg BMI 26.0 BP 142/60 H Blood Pressure Location Rt brachial Position Sitting Pulse 76 Pulse Source Pulse Oximeter Temp 99.3 F Temp Source Oral Pulse Oximetry (%) 98 Oxygen Delivery Method Room Air Intake Visit Reasons: EP sore throat cough Intake Note: Patient presents c/o cough, sore throat, sinus congestion/pressure x4 days. Patient Tobacco Use Status: Former Tobacco user Allergies levofloxacin (From Levaquin) Allergy (Intermediate, Verified 04/29/25 12:57) diarrhea and vomiting codeine (CODEINE) Allergy (Unknown, Verified 04/29/25 12:57) STOMACH UPSET cephalexin (From Keflex) Adverse Reaction (Intermediate, Verified 04/29/25 12:57) Diarrhea and vomiting HPI HPI Comments History of Present Illness Details Chief Complaint: ?Sore throat that started on Sunday and has been getting worse.? History of Present Illness: Patient reports onset of symptoms on Sunday, four days ago, beginning with a progressively worsening sore throat. She describes frequent sneezing, nasal co ngestion, and a productive cough that kept her up at night, along with persistent throat soreness. She notes occasional chills but denies any significant fever. There is no nausea, vomiting, abdominal pain, or chest pain. She experiences some shortness of breath, particularly with coughing. The patient has no known sick contacts, despite attending a Thanksgiving gathering with approximately ten family members, none of whom were ill. She has a history of tonsillectomy. 79-year-old female with acute upper resp iratory symptoms most consistent with viral URI vs. bronchitis; mild wheezing present. Problem #1: Acute Upper Respiratory Infection / Pharyngitis vs. Bronchitis Assessment: Four-day history of sore throat, congestion, sneezing, productive cough; mild throat erythema without exudate; no fever; viral etiology suspected but bacterial bronchitis cannot be ruled out until viral panel results return. Plan: * Obtain rapid/NAAT testing for influenza, SARS-CoV-2, and RSV. * Start low-dose prednisone as symptomatic therapy for airway inflammation. * Provide prescription cough medication for nocturnal cough relief. * If viral panel negative: initiate doxycycline for presumed bronchitis/URI. * If viral panel positive: continue prednisone and cough medication only; avoid antibiotics. * Return or call for worsening symptoms, high fever, chest pain, or difficulty breathing. Problem #2: Mild Wheezing / Reactive Airway Assessment: Mild wheeze on exam; patient has existing inhalers at home (albuterol, Spiriva); currently symptomatic. Plan: * Prescribe new albuterol inhaler for rescue use as needed. * Instruct to use inhaler for shortness of breath or wheezing. * Monitor symptoms; seek care if wheezing worsens or inhaler not effective. Follow-up: Patient to follow up with primary care or return to ED/urgent care if symptoms worsen or do not improve in several days. [facility] Social History Patient Tobacco Use Status: Former Tobacco user Review of Systems Narrative Constitutional: Occasional chills, no significant fever reported. ? HEENT: Sore throat, sneezing, nasal congestion/blowing; denies ear pain. ? Respiratory: Cough (sometimes productive), mild shortness of breath, mild wheezing. ? Cardiovascular: Denies chest pain. ? Gastrointestinal: Denies nausea, vomiting, abdominal pain. ? Genitourinary: No issues discussed. ? Musculoskeletal: No complaints. ? Neurological: No complaints. ? Skin: No complaints. Const All systems reviewed & are unremarkable except as noted in HPI and below Physical Exam Exam Exam: Appearance: Alert.? Oriented X3.? No acute distress.? Head: Normocephalic, atraumatic, no step-offs or deformities Eyes: Pupils equal, round and reactive to light.? Neck: Normal inspection.? Neck supple.? CVS: Normal heart rate and rhythm.? Pulses normal.? Respiratory: No respiratory distress.? Breath sounds mild expiratory wheezing b/l.? Abdomen: Soft and nontender.? Skin: Skin warm and dry.? Normal skin color.? Normal skin turgor.? Extremities: No lower extremity edema.? No calf ttp. 5/5 strength to bilateral upper and lower extremities Back: No midline tenderness, no C-spine tenderness, full range of motion, no CVA tenderness bilaterally Neuro: Oriented X 3.? No motor deficit.? No sensory deficit. CN 2-12 intact Vital Signs: Last Vital Signs Temp 99.3 F 04/29/25 12:55 Pulse 76 04/29/25 12:55 BP 142/60 H 04/29/25 12:55 Pulse Ox 98 04/29/25 12:55 Oxygen Delivery Method Room Air 04/29/25 12:55 BMI result Body Mass Index 26.0 vss Assessment & Plan Assessment & Plan (1) URI, acute: Code(s): J06.9 - Acute upper respiratory infection, unspecified Plan Take your medications as prescribed. If you were prescribed antibiotics today, it is important that you take your medication to their entirety, do not skip any doses, do not finish them early. Follow-up with your primary care provider this week. Go to the emergency department with new or worsening symptoms. In case of emergency call 911 Orders: Orders SARS-CoV2/FLU/RSV Today J06.9 - Acute upper respiratory infection, unspecified Medications: New benzonatate 100 mg PO BID PRN 14 caps 0RF cough prednisone 20 mg PO DAILY 5 tabs 0RF 5 days Coding Level of Care Code Est Pt Level 3 (86611) Diagnoses URI, acute J06.9
[2025-04-29 12:55] VITALS: BP 142/60; PULSE 76; TEMP 37.4; O2SAT 98; BMI 26.0
--- OUTSIDE RECORDS SUMMARY | 2025-04-29 15:02 | XMS_ITS | Encounter Summary ---
Author Organization [facility] Address [address] [place] [address] Care Team Providers Care Applications Development Consultant Name Role Phone Zeke Carlos MD Primary Care Provider [phone] Encounter Details Date Type Department Care Team ([facility] st Contact Info) Description 04/15/2025 Results Follow-Up Vascular Surgery - [place] [address] [place] [address] Peggy Cordoba PA [address] [place] [address] Social History Tobacco Use Types Packs/Day Years [...] Record ed Within the last 3 months, naif landry many times did you visit the emergency [...] your loved ones. For example, early childhood education coordinator or elderly care for an older adult? [...] Info) Description 05/08/2025 9:45 AM EST Appointment [facility] CT Scan [address] [place] [address] 05/08/2025 11:30 AM EST Appointment [facility] CT Scan [address] [place] [phone] 05/11/2025 11:00 AM EST Office Visit Vascular Surgery - [place] [address] [place] [address] Ronen Vernon MD [address] [place] [phone] 05/14/2025 10:30 AM EST Office Visit Thoracic Surgery - [place] [address] [facility] [address] [place] [address] Raine Ballard PA [address] [place] [phone] 04/06/2026 10:00 AM EST Office Visit [facility] Hematology Oncology [address] [place] [phone] Kathy Rene, DO [address] [place] [address] documented as of this encounter Visit Diagnoses Not on filedocumented in this encounter Additional Health Concerns Assessment Noted Time PHQ-9 Depression Total Score: 8 09/10/19 25 7:31 PM EDT documented as of this encounter Care Teams Applications Development Consultant Relationship Specialty Start Date End Date Zeke Carlos MD [address] [place] [address] PCP - General Internal Medicine 03/16/21 documented as of this encounter
--- OUTSIDE RECORDS SUMMARY | 2025-04-29 15:02 | XMS_ITS ---
Author Organization [facility] Address [address] [place] [address] Phone Care Team Providers Care Ferry Captain Name Role Phone Zeke Carlos MD Primary Care Provider [phone] Active Problems Problem Noted Date Diagnosed Date Bradycardia 01/31/2025 Overview (01/31/2025): See note January 30, 2025, beta-blockade discontinued. Primary cancer of left upper lobe of lung (CMS/HCC V24, CMS/HCC V28) 09/25/2024 Superior mesenteric artery stenosis (CMS/HCC V24 ) 06/16/2024 Mesenteric ischemia (CMS/HCC V24) 06/16/2024 History of lung cancer 06/04/2024 Assessment & Plan (11/06/2024 11:45 AM EDT): Ms. Grace is a 78-year-old female who has had multiple bilateral lung cancers in the past. On the right side she had a right upper lobe posterior segmentectomy and right lower lobe superior segmentectomy in 2018 for 2 synchronous adenocarcinomas. On the left side she had SBRT to the left upper lobe in 2017, as well as a left upper lobectomy in September 2023 for two additional early-stage multifocal adenocarcinomas. The patient's most recent CT chest done in October 2024 shows no new or worsening pulmonary nodule, or thoracic adenopathy, to suggest recurrence or new disease. She has stable bilateral pulmonary nodules of both groundglass solid and semisolid in appearance. The largest of which measures 11 mm in the right upper lobe and a 9 mm nodule in the right lower lobe. We will continue with routine chest CT surveillance the next of which will be in 6 months, April 2025, with a follow-up visit in our office following this. Assessment & Plan (06/04/2024 10:36 AM EST): Ms. Grace is a 78-year-old female who has [...] September 2023 for two additional early-stage multifocal adenocarcinomas. The patient's most recent surveillance chest CT scan done on 05/13/2024 shows no new or worsening pulmonary nodule, or thoracic adenopathy, to suggest recurrence or new disease. She has several stable pulmonary nodules, including both solid and ground glass. Will continue with routine chest CT surveillance the next of which will be in 6 months, October 2024, with a follow-up visit in our office following this. Patient is seeing Dr. Rene for medical oncology later this month and should she recommend any earlier timing of her CT scan we can certainly cancel our order see her after the scan ordered by oncology. 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 I discussed the CAT scan with her as described in HPI which does not show any mass or hematoma in the area that I would expect to push on the recurrent laryngeal nerve on the left. This does make me wonder if this is not a sequela of surgery and possibly would be a temporary paralysis of the vocal cord. The timing of development of the hoarse voice is also incongruent with a surgical injury but I imagine it still possible. I did discuss all of this with her which she seemed understand. We discussed options of continued observation in the hopes that this is temporary and resolves on its own which may indeed happen whether it is a surgical injury or not. Versus ENT injection of the vocal cord. She at this point wants to wait and see if this improves and I will see her in about a month to assess this again. All questions were answered. COPD (chronic obstructive pu lmonary disease) ([facility] V24, [facility] V28) 11/16/2023 Assessment & Plan (06/04/2024 2:10 PM EST): Her breathing is stable. Her lungs are clear. She will continue on Spiriva, Singulair, and her albuterol inhaler as needed. Chest pain 09/26/2023 Hyperlipidemia 08/06/2023 Anxiety 08/06/2023 Moderate persistent asthma 08/06/2023 Tobacco use disorder 02/21/2022 Compression fracture of T12 vertebra ([facility] V24, [facility] V28) 02/25/2019 Overview (08/06/2023): S/p kyphoplasty 10/2018 follows with [facility] Essential hypertension 11/25/2018 Overview (08/06/2023): Last Assessment & Plan: Pt is being seen for surveillance lung cancer screening and her SBP 180 upon exam. She is asymptomatic and my be nervous due to discuss CT results. 1.She is instructed that is she experiences the worst headache, dizziness, or blurred vision she needs to go the the ED. 2.She is instructed to take her BP at home and keep a log and call her PCP if BP> 130/80. She is in agreement with this plan. 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 She recovered well from her navigational bronchoscopy with biopsy and on the cryobiopsy no malignancy was seen and reactive changes compatible with radiation atypia. I discussed the pathology with her in detail and while it is encouraging this does not 100% rule out malignancy in this area. She is understanding of that and we discussed again pulmonary nodules in general and how their size, shape, and ion exchange operator time determine her level of suspicion for malignancy. We did talk about options of continued observation versus surgical resection which would certainly take a lobectomy. Personally I think the most reasonable thing is for a follow-up 6- month CT scan given that we did have some findings that would explain the nodule in question on the cryobiopsy. With that in mind, we will plan on doing a 6-month follow-up CT scan of the chest and a visit with me after that. All questions were answered. Multiple pulmonary nodules 05/19/2015 Overview (02/27/2024): Multiple small nodules 2004; PET negative 2004; Stable CT 2008 and 2011 Last Assessment & Plan: 77-year-old woman with history of multiple separate primary lipidic lung cancers with a area of decreasing nodularity and groundglass change around a previously radiated lung cancer in the left upper lobe. I discussed the findings of her CT scan as described in HPI. I also discussed pulmonary nodules in general and how their size, shape, and ion exchange operator time factor level of suspicion for malignancy. We discussed that this has increased in size and is relatively suspicious for recurrent or persistent lung cancer in the left upper lobe. There are also other areas of groundglass in the left upper lobe that may very well be lipidic type lung cancers. Again I also discussed the diagnosis, staging, and treatment of lung cancer which she seemed understand. At this point, she has a graduation to attend for her granddaughter and may and does not want anything done at least surgically before that so we will plan on doing pulmonary function testing and a PET scan with a follow-up visit with me after that to discuss options moving forward. The 2 options are essentially can be repeat biopsy versus lobectomy as that is what it would take to remove this entirely. We did this discuss this as well briefly. We will also have her see a medical billing instructor for a risk assessment given she has significant peripheral vascular disease and the coincidence of peripheral vascular disease and coronary artery disease. Current Treatment and Therapy Plans No current plan information found. Past Treatment and Therapy Plans No past plan information found. Lifetime Dose Tracking * Chemical Lifetime Dose Automatic Entry Manual Entr y Radiation 5,209 mGy 0 mGy 5,209 mGy Fluoro Time 11.6 minutes 0 minutes 11.6 minutes Resolved Problems Problem Noted Date Diagnosed Date Resolved Date Primary cancer of right uppe r lobe of lung (CMS/HCC V24, CMS/HCC V28) 02/21/2022 06/04/2024 Adenocarcinoma of lung (CMS/ HCC V24, CMS/HCC V28) 12/06/2018 06/04/2024 Overview (08/06/2023): Diagnosed November 2017, s/p VATS for upper and lower lobe resection and radiation Follows with [facility]
--- OUTSIDE RECORDS SUMMARY | 2025-04-29 15:02 | XMS_ITS | Encounter Summary ---
Author Organization [facility] Address [address] [place] [address] Care Team Providers Care Cad Engineer Name Role Phone Zeke Carlos MD Primary Care Provider [phone] Encounter Details Date Type Department Care Team ([facility] st Contact Info) Description 03/09/2025 Results Follow-Up Adult Medicine [facility] [address] [place], [place] [phone] Marquis Cardona NP [address] [place], [place] Social History Tobacco Use Types Packs/Day Years [...] ed Within the last 3 months, naif w many times did you visit the [...] for your loved ones. For example, children's ministries director or elderly care for an older [...] Info) Description 05/08/2025 9:45 AM EST Appointment [facility] CT Scan [address] [place] [phone] 05/08/2025 11:30 AM EST Appointment [facility] CT Scan [address] [place] [phone] 05/11/2025 11:00 AM EST Office Visit Vascular Surgery [facility] [address] [place] [address] Ronen Vernon MD [address] [place] [address] 05/14/2025 10:30 AM EST Office Visit Thoracic Surgery - [place] [address] [facility] [address] [place] [address] Raine Ballard PA [address] [place] [address] 04/06/2026 10:00 AM EST Office Visit [facility] Hematology Oncology [address] [place] [phone] Kathy Rene DO [address] [place] [address] documented as of this encounter Visit Diagnoses Not on filedocumented in this encounter Additional Health Concerns Assessment Noted Time PHQ-9 Depression Total Score: 8 09/10/19 25 7:31 PM EDT documented as of this encounter Care Teams Cad Engineer Relationship Specialty Start Date End Date Zeke Carlos MD [address] [place] [address] PCP - General Internal Medicine 03/16/21 documented as of this encounter
--- OUTSIDE RECORDS SUMMARY | 2025-04-29 15:02 | XMS_ITS | Encounter Summary ---
Author Organization [facility] Prior to 10/25/[address] [place] [address] Care Team Providers Care Professor Of Psychology Name Role Phone Zeke Carlos MD Primary Care Provider [phone] Encounter Details Date Type Department Care Team Description 04/25/2021 E-Visit [facility] Oncology Services [address] [place] [address] Aki Peña MD Social History Tobacco Use [...] on filedocumented in this encounter Care Teams Professor Of Psychology Relationship Specialty Start Date End Date Zeke Carlos MD PCP - General Internal Medicine 11/23/21 documented as of this encounter
--- OUTSIDE RECORDS SUMMARY | 2025-04-29 15:02 | XMS_ITS | Patient Health Record ---
Author Organization [facility] Address [address] [place] [address] Care Team Providers Care Manager Clinical Services Name Role Phone Breanna VÁSQUEZ, Zeke Blake Primary Care Provider Unav ailable Black, Shiela Unavailable [phone] Allergies Allergen (clinical drug ingredient) Drug/Non Drug Allergy documented on EMR Reaction Allergy Type Onset Date Status Keflex Unknown Drug Allergy Active Levaquin Unknown Drug Allergy Active codeine Codeine Unknown Drug Allergy Active Reason For Referral No Information Medications Medication SIG (Take, Route, Frequency, Duration) Notes Start Date End Date Status Doxycycline Hyclate 100 MG 1 capsule Ora lly Once a day; Duration: 10 day(s) Active Omeprazole 20 MG 1 capsule 30 minutes before morning meal Orally Once a day Active Montelukast Sodium 10 MG 1 tablet Orally Once a day Active Lexapro 20 MG 1 tablet Orally Once a day Active Ezetimibe 10 MG 1 tablet Orally Once a day Active buPROPion HCl ER (SR) 150 MG 1 tablet in the morning Orally Once a day Active amLODIPine Besy-Benazepril HCl 10-20 MG as directed Orally Active Metoprolol Succinate 25 MG 1 capsule Ora lly Once a day Active Social History Tobacco Use: Social History Observation Description Date Details (start date - stop date) Former Smoker NA - NA Tobacco Use/Smoking Question Answer Notes Are you a: former smoker Additional Findings: Tobacco Non-User Current no n-smoker Alcohol Screen Question Answer Notes Did you have a drink contain ing alcohol in the past year? Yes How often did you have a dri nk containing alcohol in the past year? 2 to 3 times a week (3 points) Points 3 Interpretation Positive Tobacco use other than smoking: Question Answer Notes Are you an other tobacco user? No Problems Problem Type SNOMED Code ICD Code Onset Dates Problem Status W/U Status Risk Notes Problem Ulcer of toe of right foot (disorder) (527427141 43509080) Skin ulcer of toe of right foot, limited to breakdown of skin (L97.511) Active confirmed Problem Ulcer of toe of left foot (disorder) (769975815 01609256) Skin ulcer of toe of left foot, limited to breakdown of skin (L97.521) Active confirmed Nonapplicable Problem Skin ulcer of toe of right foot with fat layer exposed (L97.512) Active confirmed Problem Skin ulcer of toe of left foot with fat layer exposed (L97.522) Active confirmed Plan Of Treatment Pending Test Test Name Order Date 97741-Tujovkvy Plate 03/09/2023 81715- Debride <25 sq cm 03/26/2023 Insurance Providers Payer Name Payer Address Payer Phone Subscriber Number Group Number Insured Name Patient Relationship to Insured Coverage Start Date Coverage End Date [employer] [address] [place] [address] [id number] Carmen Grace Self - patient is the insured Medical (General) History Medical History History ICD Code Anxiety Broken bones CAD (Cholesterol) Cancer Cataracts Depression High blood pressure Lung disease Reflux ( GERD) Vascular phlebitis (clots) Vascular grafts Joint implants/screws Surgical History Surgery Date(Month/Year) femoropopliteal bypass graft Gall bladder removal 2023 Lung Cancer Surgery 09/2023
--- OUTSIDE RECORDS SUMMARY | 2025-04-29 15:02 | XMS_ITS | Data Portability ---
Author Organization [place] [facility], [facility] Address [address] [address] Assessment Encounter Date Assessment Date Assessment LastModified [...] Recorded Time Paralysis of left vocal cord 684009603 Active Jaquelin méndez [facility] 16:06:51 Hoarse 49964065 Active Jaquelin méndez [facility] 16:07:17 Problem Notes None recorded. Procedures Surgical History Date Name Laterality Status Provider Name and Address Organization Details Recorded Time 03/17/20 24 Fiberoptic Laryngoscopy (Comprehensive) completed Jaquelin Pickard [place] - [facility] 03/17/2024 16:06:41 Appendectomy completed Obdulia Tate [facility] 03/17/2024 15:29:13 Cataract Surgery completed Obdulia Tate [place] [facility] 03/17/2024 15:29:18 Hysterectomy completed Obdulia Tate [place] [facility] 03/17/2024 15:29:25 lithotripsy completed Obdulia Tate [facility] 03/17/2024 15:29:33 lobectomy of lung completed Obdulia Tate [facility] 03/17/2024 15:29:51 Imaging Results None recorded. [...] Updated DateTime 06/18/2024 165.1 cm 22 kg/m2 77127.19 g Fady Cotto [facility] 06/18/2024 10:30:05 Social History None recorded. Functional Status None recorded. Mental Status None recorded. Family History Nothing Reported. Medical History Condition Response Depression Y Cancer Y Anxiety Y Hyperlipidemia Y Asthma Y Hypertension Y Gynecological HistoryNo gynecological history recorded. Obstetrics History GPAL:G 0 P 0 0 0 0 Past Encounters Encounter ID Performer Location Encounter Start Date Encounter Closed Date Diagnosis/Indication Diagnosis SNOMED-CT Code Diagnosis ICD10 Code Diagnosis IMO Codes Diagnosis Note [id number] FLOR CONDE MD [facility] [address] [address] 03/17/2024 15:12:42 03/17/2024 17:01:30 Paralysis of left vocal cord 890164291 J38.01 History of primary malignant neoplasm of lung 441369571 Z85.118 Hoarse 89137328 R49.0 [id number] FLOR CONDE MD [facility] [address] [address] 06/18/2024 10:13:53 06/18/2024 10:51:40 Paralysis of left vocal cord 781046459 J38.01 Patient appears to have a well [...] fold is paralyzed but compensate d. Hoarse 78781558 R49.0 History of primary malignant neoplasm of lung 213701820 Z85.118 follow with thoracic surgery Health Concerns Section Related Observation LastModified by Organization Detai ls LastModified Time None Recorded Concern Status LastModified by Organization Details LastModified Time None Recorded Advance Directives Directive None Recorded Payers Insurance Date Sequence Insurance Name Policy Number Policy Jenkins Covered Member ID Jenkins Member ID Guarantor Name 07/04/2024 1 [facility] [id number] 01 Carmen Grace [id number] Carmen Grace 07/04/2024 1 [facility] - MEDICARE ADVANTAGE PLAN (MEDICARE REPLACEMENT HMO) [id number] Carmen Grace [id number] Carmen Grace Notes Date Note Type Note [...] throat, hemoptysis, nor fevers. FLOR SHETH MD [address] [place] [address], [phone], [facility] 03/17/2024 16:52:26 06/18/2024 text/html ROS as [...] at 06/04/2024 10:36 AM MARIO SHETH MD [address] [place] [address], [phone], [facility] - [facility] 06/18/2024 10:49:44 OBGyn Episode No OBEpisode recorded.
--- OUTSIDE RECORDS SUMMARY | 2025-04-29 15:02 | XMS_ITS | Clinical Summary ---
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 OTC Active LORazepam (ATIVAN) 0.5 mg tablet Take 1 tablet (0.5 mg total) by mouth every 6 (six) hours if needed. Take 1 tablet (0.5 mg total) by mouth every 6 (six) hours as needed Prescribed by Dr. Carlos Active albuterol HFA (PROAIR HFA ; PROVENTIL HFA ; VENTOLIN HFA) 90 mcg/actuation inhaler INHALE 2 PUFFS BY MOUTH EVERY 4 HOURS NEEDED FOR COUGH OR WHEEZING 9 g 2 06/17/19 25 Active escitalopram (LEXAPRO) 20 mg tablet Take 1 tablet (20 mg total) by mouth 1 (one) time each day. 30 each 14 08/13/19 25 026 Active montelukast (SINGULAIR) 10 mg tablet Take 1 tablet (10 mg total) by mouth at bedtime. at bedtime. 90 tablet 1 09/23/19 25 Active buPROPion SR (WELLBUTRIN SR) 150 mg 12 hr tablet Take 1 tablet (150 mg total) by mouth 2 (two) times a day. 180 tablet 1 10/16/19 25 Active amLODIPine (NORVASC) 10 mg tablet Take 1 tablet by mouth twice daily 180 tablet 1 12/10/19 25 Active clopidogreL (PLAVIX) 75 mg tablet Take 1 tablet by mouth once daily 30 tablet 5 12/10/19 25 Active Spiriva with HandiHaler 18 mcg per inhalation capsule PLACE 1 CAPSULE INTO THE INHALER AND INHALE THE CONTENTS BY MOUTH INTO THE LUNGS THROUGH THE SPIRIVA DEVICE ONE TIME EVERY MORNING 30 capsule 4 01/15/20 25 Active benazepriL (LOTENSIN) 40 mg tablet Take 1 tablet by mouth once daily 90 tablet 1 02/10/20 25 Active ezetimibe (ZETIA) 10 mg tablet Take 1 tablet (10 mg total) by mouth 1 (one) time each day. 90 each 1 02/14/20 25 Active omeprazole (PriLOSEC) [address] capsuleIndication s:Moderate persistent asthma, uncomplicated Take 1 capsule by mouth once daily 90 capsule 04/13/20 25 Active omeprazole (PriLOSEC) [address] capsule 1 (one) time each day at the same time. 025 Discontinued cyclobenzaprine (FLEXERIL) 5 mg tabletIndications :muscle spasm Take 1 tablet (5 mg total) by mouth 2 (two) times a day if needed for muscle spasms. 30 tablet 03/09/20 25 025 Discontinued Active Problems Problem Noted Date Diagnosed Date Bradycardia 01/31/2025 Overview (01/31/2025): See note January 30, 2025, beta-blockade discontinued. Primary cancer of left upper lobe of lung (CMS/HCC V24, CMS/HCC V28) 09/25/2024 Superior mesenteric artery stenosis ([facility]/HCC V24 ) 06/16/2024 Mesenteric ischemia (CMS/HCC V24) 06/16/2024 History of lung cancer 06/04/2024 Assessment & Plan (11/06/2024 11:45 AM EDT): Ms. Owsiak is a 78-year-old female who has had multiple bilateral lung cancers in the past. On the right side she had a right upper lobe posterior segmentectomy and right lower lobe superior segmentectomy in 2018 for 2 synchronous adenocarcinomas. On the left side she had SBRT to the left upper lobe in 2018, as well as a left [...] & Plan (06/04/2024 10:36 AM EST): Ms. Euceda is a 78-year-old female who has had [...] answered. COPD (chronic obstructive pu lmonary disease) ([facility] V24, [facility] V28) 11/16/2023 Assessment & Plan (06/04/2024 2:10 PM EST): Her breathing is stable. Her lungs are clear. She will continue on Spiriva, Singulair, and her albuterol inhaler as needed. Chest pain 09/26/2023 Hyperlipidemia 08/06/2023 Anxiety 08/06/2023 Moderate persistent asthma 08/06/2023 Tobacco use disorder 02/21/2022 Compression fracture of T12 vertebra ([facility] V24, [facility] V28) 02/25/2019 Overview (08/06/2023): S/p kyphoplasty 10/2018 follows with [facility] Essential hypertension 11/25/2018 Overview (08/06/2023): Last Assessment [...] lung 05/19/2015 Overview (08/06/2023): Multiple small nodules 2003; PET negative 2003; Stable CT 2008 and [...] general and how their size, shape, and exchange mechanic time determine her level of suspicion for [...] nodules 05/19/2015 Overview (02/27/2024): Multiple small nodules 2003; PET negative 2003; Stable CT 2008 and [...] general and how their size, shape, and exchange mechanic time factor level of suspicion for malignancy. [...] We will also have her see a toilet attendant for a risk assessment given she has significant peripheral vascular disease and the coincidence of peripheral vascular disease and coronary artery disease. Resolved Problems Problem Noted Date Diagnosed Date Resolved Date Primary cancer of right uppe r lobe of lung (CMS/HCC V24, CMS/HCC V28) 02/21/2022 06/04/2024 Adenocarcinoma of lung (CMS/ HCC V24, CMS/HCC V28) 12/06/2018 06/04/2024 Overview (08/06/2023): Diagnosed November 2017, s/p VATS for upper and lower lobe resection and radiation Follows with [facility] Oncology Encounters Date Type Department Care Team Description 04/15/2025 Results Follow-Up Vascular Surgery - [place] [address] [place] [phone] Peggy Cordoba PA 04/13/2025 11:15 AM EST Lab Draw Station - [address] [facility] [address] [facility] [place] [phone] PAD (peripheral artery disease) ([facility] V24); S/P angioplasty with stent 04/13/2025 10:30 AM EST Office Visit Vascular Surgery - [place] [address] [place] [phone] Ronen Vernon MD PAD (peripheral artery disease) ([facility] V24) (Primary Dx); S/P angioplasty with stent 04/08/2025 10:00 AM EST Ancillary Procedure [facility] [address] [place] [phone] Atherosclerosis; PAD (peripheral artery disease) ([facility] V24) 04/06/2025 10:00 AM EST Office Visit [facility] Hematology Oncology [address] [place] [phone] Kathy Rene DO Primary cancer of left upper lobe of lung ([facility] V24, [facility] V28) (Primary Dx) 03/10/2025 Telephone Adult Medicine [address] [phone] Rossi Carlos MD 03/09/2025 1:57 PM EDT - 03/09/2025 11:59 PM EDT Hospital Encounter [address] [phone] Neck pain; Acute right ankle pain Discharge Disposition: Home or Self Care 03/09/2025 1:30 PM EDT Office Visit Adult Medicine [address] [phone] Marquis Cardona NP Neck pain (Primary Dx); Acute right ankle pain; Essential hypertension 03/09/2025 Results Follow-Up [address] [phone] Marquis Cardona NP 03/09/[address] [phone] Rossi Carlos MD 01/30/2025 11:59 AM EDT - 01/30/2025 11:59 PM EDT Hospital Encounter [address] [phone] Upper respiratory tract infection, unspecified type; Chronic obstructive pulmonary disease, unspecified COPD type (CMS/HCC V24, CMS/HCC V28) Discharge Disposition: Home or Self Care 01/30/2025 11:30 AM EDT Office Visit [address] [phone] Rossi Carlos MD Upper respiratory tract infection, unspecified type (Primary Dx); Chronic obstructive pulmonary disease, unspecified COPD type (CMS/HCC V24, CMS/HCC V28); Other fatigue; Neck pain; Bradycardia from Last 3 Months Immunizations Immunization Administration Dates Next Due Influenza Quadravalent, 0.5m l (Fluzone High-dose) 65yo and older 01/21/2019,02/07/2018,02/03/2017,01/27 Influenza trivalent, 0.5mL ( Fluzone High-dose) 65yo and older 04/10/2023,02/17/2022,03/16/2021,01/15 Influenza, Unspecified 02/19/2024 PPD Test 12/11/2016 Pfizer (ages 12 & older) Biv alent, COVID-19 02/17/2022 Pfizer SARS-CoV-2 COVID-19, mRNA, LNP-S, preservative free 07/21/2020,07/02/2020,06/30/2020 Pneumococcal polysaccharide 23 valent (Pneumovax 23) 2yo and older 12/29/2016,01/30/2012,02/03/2008 Td Tetanus diptheria (Tdvax) 7yo and older 02/25/2019 Tdap Tetanus diptheria acell ular pertussis (Boostrix; Adacel) 7yo and older 05/28/2008 Zoster recombinant (Shingrix ) 19yo and older 01/21/2019 Surgical History Surgery Date Site/Laterality Comments APPENDECTOMY PROCEDURE:APPENDECTOMY HYSTERECTOMY PROCEDURE:HYSTERECTOMY LUNG SURGERY PROCEDURE:LUNG SURGERY FOOT SURGERY PROCEDURE:FOOT SURGERY HYSTERECTOMY PROCEDURE: HISTORICAL HYSTERECTOMY; COMMENT: cervical cancer; USO APPENDECTOMY PROCEDURE: HISTORICAL APPENDECTOMY; COMMENT: post op C difficile infection FOOT SURGERY PROCEDURE: HISTORICAL FOOT SURGERY CATARACT EXTRACTION PROCEDURE: HISTORICAL CATARACT REMOVAL; COMMENT: left COLONOSCOPY 10/26/2013 PROCEDURE: HISTORICAL COLONOSCOPY; COMMENT: repeat 3 years COLONOSCOPY 2008 PROCEDURE: HISTORICAL COLONOSCOPY; COMMENT: serrated adenoma EYE SURGERY 12/2014 Bilateral PROCEDURE: HISTORICAL EYE SURGERY; COMMENT: ptosis repair BREAST BIOPSY 40's PROCEDURE: BX BREAST; PERC NEEDLE CORE W/IMAG GUID; COMMENT: rt. needle bx.-benign OTHER SURGICAL HISTORY 12/26/2022 Bilateral PROCEDURE: WI REVASCULARIZATION ILIAC ARTERY ANGIOP 1ST VSL OTHER SURGICAL HISTORY 12/26/2022 Bilateral PROCEDURE: WI REVASC INTRAVASC LITHOTRIPSY OTHER SURGICAL HISTORY 01/25/2023 Left PROCEDURE: WI TEAEC W/GRAFT POPLITEAL ARTERY OTHER SURGICAL HISTORY 07/03/2023 PROCEDURE: WI REVSC OPN/PRG FEM/POP W/ANGIOPLASTY UNI OTHER SURGICAL HISTORY 07/03/2023 PROCEDURE: WI INTRAVASCULAR US NONCORONARY RS&I INTIAL VESSEL OTHER SURGICAL HISTORY 07/03/2023 PROCEDURE: WI INTRAVASCULAR US NONCORONARY RS&I ADDL VESSEL OTHER SURGICAL HISTORY 07/03/2023 PROCEDURE: ULTRASOUND GUIDANCE FOR VASCULAR AC OTHER SURGICAL HISTORY 10/24/2023 Left PROCEDURE: WI THORACOSCOPY W/LOBECTOMY SINGLE LOBE; COMMENT: KENNY Medical History Medical History Date Comments Lung cancer (CMS/HCC V24, CMS/HCC V28) DX:Lung cancer (HCC) Essential hypertension 11/25/2018 DX:Essent ial hypertension Hyperlipidemia DX:Hyperlipidemi a Vitamin D deficiency 05/20/2015 DX:Vitamin D deficiency Diverticulosis 05/19/2015 DX:Diverticulosi s 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 ; COMMENT: B cell monoclonal lymphocytosis Used to follow with Dr Noonan Colon adenoma 02/13/2024 DX:Colon adenoma ; COMMENT: CN 6.1.14 - repeat5-10 years Adenocarcinoma of lung ([facility] V24, CMS/HCC V28) 12/06/2018 DX:Adenocarcinoma of lung (H CC); COMMENT: Diagnosed November 2017, s/p VATS for upper and lower lobe resection and radiation Follows with [facility] Oncology Anxiety DX:Anxiety Depression 05/19/2015 DX:Depression Osteopenia 05/19/2015 DX:Osteopenia Vitreous detachment 05/20/2015 DX:Vitreous detachment; COMMENT: Right eye 02/05 Actinic keratoses 02/01/2017 DX:Actinic ker atoses; COMMENT: Actinic keratoses Moderate persistent asthma DX:Mo derate persistent asthma Pulmonary nodule 05/19/2015 DX:Pulmonary no dule; COMMENT: Multiple small nodules 2003; PET negative 2003; Stable CT 2008 and 2011 History of cervical cancer 07/02/2015 DX:Hi story of cervical cancer Mild persistent asthma witho ut complication 01/23/2017 DX:Mild persistent asthma wi thout complication History of tobacco abuse 12/06/2018 DX:Hist ory of tobacco abuse; COMMENT: Quit 12/2017 Compression fracture of T12 vertebra ([facility] V24, [facility] V28) 02/25/2019 DX:Compression fracture of T12 vertebra ([facility]); COMMENT: S/p kyphoplasty 10/2018 follows with [facility] History of lung cancer 03/13/2022 DX:Histor y of lung cancer Chest pain 09/26/2023 DX:Chest pain Pre-op exam 09/26/2023 DX:Pre-op exam Vocal cord paralysis left Primary cancer of right uppe r lobe of lung (CMS/[facility] V24, CMS/[facility] V28) 02/21/2022 Family History Medical History Relation Name Comments No Known Problems Brother Coronary artery disease Father sepsis Hypertension Father Cancer Maternal Grandmother Other: stomach cancer Maternal Grandmother No Known Problems Mother Relation Name Status Comments Brother Father Maternal Grandmother Mother Alive Social History Tobacco Use Types Packs/Day Years Used Date Smoking Tobacco: Former Cigarettes 0.3 Q uit: 01/08/2018 Smokeless Tobacco: Never Tobacco Cessation:Counseling Given: Not Answered Alcohol Use Standard Drinks/Week Comments Yes 3 [...] for your loved ones. For example, children's choir director or elderly care for an older [...] Orientation Straight 03/28/2024 10 :43 AM EDT Obstetrics History Last Filed Vital Signs Vital Sign Reading Time Taken Comments Blood Pressure 150/50 04/13/2025 10:27 AM EST Pulse 60 04/13/2025 10:27 AM EST Temperature 36.4 C (97.6 F) 04/06/2025 10:08 AM EST Respiratory Rate 16 04/13/2025 10:27 AM EST Oxygen Saturation 96% 04/06/2025 10:08 AM EST Inhaled Oxygen Concentration - - Weight 69.4 kg (153 lb) 04/13/2025 10:27 AM EST Height 157.5 cm (5' 2 ) 04/13/2025 10:27 AM EST Body Mass Index 27.98 04/13/2025 10:27 AM EST Plan of Treatment Upcoming Encounters Date Type Department Care Team (Late st Contact Info) Description 05/08/2025 9:45 AM EST Appointment [facility] CT Scan [address] [place] [phone] 05/08/2025 11:30 AM EST Appointment [facility] CT Scan [address] [place] [phone] 05/11/2025 11:00 AM EST Office Visit Vascular Surgery - [place] [address] [place] [address] Ronen Vernon MD [address] [place] [phone] 05/14/2025 10:30 AM EST Office Visit Thoracic Surgery [facility] [address] [place] [phone] Raine Ballard PA [address] [place] [phone] 04/06/2026 10:00 AM EST Office Visit [facility] Hematology Oncology [address] [place] [phone] Kathy Rene, DO [address] [place] [address] Health Maintenance Due Date Last Done Comments Medicare Annual Wellness Visit 05/05/2022 COVID-19 Vaccine ( season) 2025 02/17/2022, 01/25/2021, 07/21/2020, Additional history exists Influenza Vaccine (#1) 2025 , 04/10/2023, 02/17/2022, Additional history exists Social Influencers of Health Screening 10/14/2025 10/14/2024 Falls Risk Assessment 01/30/2026 01/30/2025 Hypertension/CHF/CAD Annual BMP Blood Test 04/13/2026 04/13/2025, 01/30/2025, 06/24/2024, Additional history exists DTaP,Tdap,and Td Vaccines (3 - Td or Tdap) 02/25/2029 02/25/2019, 05/28/2008 Cholesterol Screening (Lipid Panel) 01/30/2030 01/30/2025, 03/22/2023 Osteoporosis Screening (Bone Density Screening) 09/28/2032 09/28/2022, 09/27/2022, 04/07/2019 Hepatitis C Screening Completed 07/02/2015, 016 Colorectal Cancer Screening: Colonoscopy Discontinued 08/31/2017 Zoster Vaccines Completed 05/04/2019, 12/27, 08/06/2008 Pneumococcal Vaccine: 50+ Years Completed 11/02/2024, 12/29/2016, 03/02/2015, Additional history exists RSV Immunization Adult Patients Completed 11/02/2024 Depression Screening Completed 01/28/2025 HIB Vaccines Aged Out No longer eligi ble based on patient's age to complete this topic HPV Vaccines Aged Out No longer eligi ble based on patient's age to complete this topic Hepatitis A Vaccines Aged Out No long er eligible based on patient's age to complete this topic Hepatitis B Vaccines Aged Out No long er eligible based on patient's age to complete this topic IPV Vaccines Aged Out No longer eligi ble based on patient's age to complete this topic MMR Vaccines Aged Out No longer eligi ble based on patient's age to complete this topic Meningococcal ACWY Vaccine Aged Out N o longer eligible based on patient's age to complete this topic Meningococcal B Vaccine Aged Out No l onger eligible based on patient's age to complete this topic RSV Immunization Patients Under 20 months Aged Out No longer eligible based on patient's age to complete this topic Varicella Vaccines Aged Out No longer eligible based on patient's age to complete this topic Medical Devices Implanted Type Area Mold Cooler Device Identifier Shelf Expiration Date Model / Serial / Lot Stent Graft Endovas 6x19mm 6f 135cm - [id number] - [id number] Implanted:Qty : 1 on 06/24/2024 by Ronen Vernon MD at [facility] Peripheral Vasc Drug Coated Stents N/A: Arterial [employer] [id number] 01/28/2027 [id number] / [id number] / Procedures Procedure Name Priority Date/Time Associated Diagnosis Comments BUN Routine 04/13/2025 11:14 AM EST PAD (peripheral artery disease) ([facility] V24) S/P angioplasty with stent CREATININE, SERUM Routine 04/13/2025 11: 14 AM EST PAD (peripheral artery disease) ([facility] V24) S/P angioplasty with stent VAS US DUPLEX LOWER EXT ARTERIES BILAT WITH NICK Routine 04/08/2025 10:51 AM EST Atherosclerosis PAD (peripheral artery disease) ([facility] V24) EXTERNAL XRAY REPORT 03/11/2025 EXTERNAL XRAY REPORT 03/11/2025 XR CERVICAL SPINE 4-5 VIEWS Routine 03/09/2025 2:04 PM EDT Neck pain Acute right ankle pain CBC WITH AUTO DIFFERENTIAL Routine 01/30/2025 12:20 PM EDT Chronic obstructive pulmonary disease, unspecified COPD type ([facility] V24, CMS/HCC V28) LIPID PANEL WITH REFLEX TO DIRECT LDL Routine 01/30/2025 12:20 PM EDT Other hyperlipidemia CBC AND DIFFERENTIAL Routine 01/30/2025 12:20 PM EDT Chronic obstructive pulmonary disease, unspecified COPD type (CMS/HCC V24, CMS/HCC V28) THYROID STIMULATING HORMONE WITH REFLEX TO FREE T4 AND FREE T3 Routine 01/30/2025 12:20 PM EDT Other fatigue COMPREHENSIVE METABOLIC PANEL Routine 01/30/2025 12:20 PM EDT Chronic obstructive pulmonary disease, unspecified COPD type (CMS/HCC V24, CMS/HCC V28) XR CHEST 2 VIEWS Routine 01/30/2025 12:0 5 PM EDT Upper respiratory tract infection, unspecified type Chronic obstructive pulmonary disease, unspecified COPD type (CMS/HCC V24, CMS/HCC V28) [facility] DEXA AXIAL SKELETON Routine 09/28/2022 4:50 PM EDT Other specified disorders of bone density and structure, other site COLONOSCOPY Routine 08/31/2017 HEPATITIS C SCREENING Routine 07/02/2015 from Last 3 Months or Most Recently Relevant to Health Maintenance Results * Creatinine (04/13/2025 11:14 AM EST) Creatinine 0.82 0.50 - 1.10 mg/dL LAB CHEMISTRY METHOD 04/13/2025 1:39 PM EST [facility] eGFR 73 >=60 mL/min/1. 73m2 LAB CHEMISTRY METHOD 04/13/2025 1:39 PM EST [facility] Comment:Calculation based on the Chronic Kidney Disease Epidemiology Collaboration (CKD-EPI) equation refit without adjustment for race. Blood Venous blood specimen / Unknown Venipuncture / Unknown 04/13/2025 11:14 AM EST 04/13/2025 11:57 AM EST us Ronen Vernon MD LAB BLOOD ORDERABLES Final Resu lt Performing Organization Address City/[facility]/ZIP Co de Phone Number [facility] [address] [place] [address], [place] [phone] * BUN (04/13/2025 11:14 AM EST) BUN 18 5 - 25 mg/dL LAB CHEMISTRY METHOD 04/13/2025 1:39 PM EST [facility] Blood Venous blood specimen / Unknown Venipuncture / Unknown 04/13/2025 11:14 AM EST 04/13/2025 11:57 AM EST us Ronen Vernon MD LAB BLOOD ORDERABLES Final Resu lt Performing Organization Address [facility] Co de Phone Number [facility] [address] [place] [address], [place] [phone] * Vascular US duplex lower extremity arteries bilateral with NICK (04/08/2025 10:51 AM EST) Left Dist External Iliac PSV 169 cm/s [facility] Left Prox External Iliac PSV 166 cm/s [facility] Left AT dist sys PSV 51 cm/s [facility] Left AT mid sys PSV 91 cm/s [facility] Left AT prox sys PSV 72 cm/s [facility] Left CAKE KNOCKER prox sys PSV 463 cm/s [facility] Left mid peroneal sys PSV 37 cm/s [facility] Left popliteal dist sys PSV 72 cm/s [facility] Left popliteal prox sys PSV 103 cm/s [facility] Left PT dist sys PSV 49 cm/s [facility] Left PT mid sys PSV 59 cm/s [facility] Left PT prox sys PSV 59 cm/s [facility] Left super femoral dist sys PSV 147 cm/s [facility] Left super femoral mid sys PSV 221 cm/s [facility] Left super femoral prox sys PSV 133 cm/s [facility] Right Dist External Iliac PSV 321 cm/s [facility] Right Prox External Iliac PSV 170 cm/s [facility] Right AT dist sys PSV 57 cm/s [facility] Right AT mid sys PSV 73 cm/s [facility] Right AT prox sys PSV 112 cm/s [facility] Right CAKE KNOCKER prox sys PSV 322 cm/s [facility] Right mid peroneal sys PSV 64 cm/s [facility] LAB Right popliteal dist sys PSV 89 cm/s [facility] Right popliteal prox sys PSV 96 cm/s [facility] Right PT dist sys PSV 21 cm/s [facility] Right PT mid sys PSV 48 cm/s [facility] Right PT prox sys PSV 61 cm/s [facility] Right super femoral dist sys PSV 157 cm/s [facility] Right super femoral mid sys PSV 125 cm/s [facility] Right super femoral prox sys PSV 127 cm/s [facility] Right profunda sys PSV 307 cm/s [facility] Left profunda sys PSV 262 cm/s [facility] Right arm BP 161 mmHg [facility] Left arm BP 160 mmHg [facility] Right posterior tibial 156 mmHg [facility] Right Dorsalis Pedis 163 mmHg [facility] Right NICK 1.01 [facility] Left posterior tibial 145 mmHg [facility] Left Dorsalis Pedis 150 mmHg [facility] Left NICK 0.93 [facility] Anatomical Region Laterality Modality Vascular, Abdomen Ultrasound Narrative 04/15/2025 10:44 AM EST Right le. Normal ankle-brachial index (1.01). 2. There is evidence of severe stenosis (50-99%) in the following arterial segments: Distal external iliac artery and common femoral artery Left le. Borderline ankle-brachial index at 0.96. 2. There is evidence of severe stenosis (50-99%) in the following arterial segments: Common femoral artery 3. There is evidence of moderate stenosis (20-49%) in the following arterial segments: Distal external iliac artery Right Lower Arterial Duplex The proximal external iliac artery has triphasic flow. The distal external iliac artery is turbulent. The distal external iliac artery has monophasic flow. The common femoral artery is turbulent. The common femoral artery has biphasic flow. The profunda femoris artery has triphasic flow. The superficial femoral artery has biphasic flow. The popliteal artery has biphasic flow. The anterior tibial artery has biphasic flow. The posterior tibial artery has biphasic flow. The mid peroneal artery has biphasic flow. Left Lower Arterial Duplex The proximal external iliac artery has triphasic flow. The distal external iliac artery is turbulent. The distal external iliac artery has biphasic flow. The common femoral artery has biphasic flow. The profunda femoris artery is turbulent. The profunda femoris artery has biphasic flow. The superficial femoral artery has biphasic flow. The mid superficial femoral artery is turbulent. The popliteal artery has biphasic flow. The anterior tibial artery has biphasic flow. The posterior tibial artery has biphasic flow. The mid peroneal artery has biphasic flow. Electronics Mechanic Apprentice Details A tamayo scale, color and doppler analysis ultrasound was performed. During the study longitudinal views were obtained. Continuous wave doppler, pulsed wave doppler and pulsed volume recording (PVR) was performed. Overall the study quality was good. Ronen Vernon MD CV VASCULAR PROCEDURES Final Re sult * External Xray Report (03/11/2025) Only the most recent of2 resultswithin the time period is included. Anatomical Region Laterality Modality Radiographic Leatha ging us Provider [facility] XR PROCEDURES Final Result * XR Cervical Spine 4-5 Views (03/09/2025 2:04 PM EDT) Anatomical Region Laterality Modality Spine, C-spine Radiographic Leatha ging 03/09/2025 3:14 PM EDT Impressions 03/09/2025 3:32 PM EDT Moderate degenerative changes of the cervical spine. No acute fracture or dislocation of the cervical spine -------- FINAL REPORT -------- Dictated By: Kishore Atkins Dictated Date: 03/09/2025 15:14 ET Assigned Physician: Kishore Atkins Reviewed and Electronically Signed By: Kishore Atkins Signed Date: 03/09/2025 15:32 ET Workstation ID: [id number] Transcribed By: Self Edit Transcribed Date: 03/09/2025 15:22 ET Narrative 03/09/2025 3:32 PM EDT HISTORY: neck pain TECHNIQUE: 4 views of the cervical spine COMPARISON: Cervical spine radiograph from 01/23/2025 FINDINGS: The cervical spine is visualized from C1-C7. Vertebral body height is maintained. Decreased disc height at multiple levels with endplate sclerosis. There is grade 1 anterolisthesis of C6 on C7. There is mild neuroforaminal stenosis at the upper cervical spine. Moderate uncovertebral arthropathy at multiple levels. The No acute fracture or dislocation is seen. There is no prevertebral soft tissue swelling. Procedure Note Kishore Atkins MD - 03/09/2025 HISTORY: neck pain TECHNIQUE: 4 views of the cervical spine COMPARISON: Cervical spine radiograph from 01/23/2025 FINDINGS: The cervical spine is visualized from C1-C7. Vertebral body height ismaintained. Decreased disc height at multiple levels with endplatesclerosis. There is grade 1 anterolisthesis of C6 on C7. There is mildneuroforaminal stenosis at the upper cervical spine. Moderateuncovertebral arthropathy at multiple levels. The No acute fracture ordislocation is seen. There is no prevertebral soft tissue swelling. IMPRESSION: Moderate degenerative changes of the cervical spine. No acute fracture ordislocation of the cervical spine -------- FINAL REPORT -------- Dictated By: Kishore Atkins Dictated Date: 03/09/2025 15:14 ET Assigned Physician: Kishore Atkins Reviewed and Electronically Signed By: Kishore Atkins Signed Date: 03/09/2025 15:32 ET Workstation ID: [id number] Transcribed By: Self Edit Transcribed Date: 03/09/2025 15:22 ET us Marquis Cardona NP IMG XR PROCEDURES Final Resu lt * Thyroid stimulating hormone with reflex to free t4 and free t3 (01/30/2025 12:20 PM EDT) TSH 3.59 0.40 - 4.00 mcIU/mL LAB CHEMISTRY METHOD 01/30/2025 8:49 PM EDT [facility] Blood Venous blood specimen / Unknown Venipuncture / Unknown 01/30/2025 12:20 PM EDT 01/30/2025 12:20 PM EDT us Rossi Carlos MD LAB BLOOD ORDERABLES Final Resul t [facility] [address] [place] [address], [place] [phone] * (ABNORMAL) Lipid panel with reflex to direct LDL (01/30/2025 12:20 PM EDT) Cholesterol 228(H) 0 - 200 mg/dL LAB CHEMISTRY METHOD 01/30/2025 8:15 PM EDT [facility] Triglycerides 139 0 - 150 mg/dL LAB CHEMISTRY METHOD 01/30/2025 8:15 PM EDT [facility] HDL 89 >=40 mg/dL LAB CHEMISTRY METHOD 01/30/2025 8:15 PM EDT [facility] LDL Calculated 111(H) 0 - 100 mg/dL LAB CHEMISTRY METHOD 01/30/2025 8:15 PM EDT [facility] Comment:Estimated LDL Calcul ated using equation: Total cholesterol - HDL cholesterol - (Triglycerides/5) VLDL Cholesterol Kt 27.8 mg/dL LAB CHEMISTRY METHOD 01/30/2025 8:15 PM EDT [facility] Non HDL Chol. (LDL+VLDL) 139 <145 mg/dL LAB CHEMISTRY METHOD 01/30/2025 8:15 PM EDT [facility] Chol/HDL Ratio 2.6 0.0 - 4.4 LAB CHEMISTRY METHOD 01/30/2025 8:15 PM [facility] Blood Venous blood specimen / Unknown Venipuncture / Unknown 01/30/2025 12:20 PM EDT 01/30/2025 12:20 PM EDT us Rossi Carlos MD LAB BLOOD ORDERABLES Final Resul t [facility] [address] [place] [address], * (ABNORMAL) CBC auto differential (01/30/2025 12:20 PM EDT) WBC 10.6 4.8 - 10.8 K/mcL LAB HEMETOLOGY METHOD 01/30/2025 2:04 PM EDT [facility] RBC 4.10 3.80 - 4.80 M/mcL LAB HEMETOLOGY METHOD 01/30/2025 2:04 PM EDT [facility] Hemoglobin 12.6 11.5 - 16.0 g/dL LAB HEMETOLOGY METHOD 01/30/2025 2:04 PM EDT [facility] Hematocrit 37.5 35.0 - 47.0 % LAB HEMETOLOGY METHOD 01/30/2025 2:04 PM EDT [facility] MCV 90.6 79.0 - 98.0 FL LAB HEMETOLOGY METHOD 01/30/2025 2:04 PM EDT [facility] MCH 30.4 27.0 - 32.0 pcg LAB HEMETOLOGY METHOD 01/30/2025 2:04 PM EDT [facility] MCHC 33.6 32.0 - 37.0 g/dL LAB HEMETOLOGY METHOD 01/30/2025 2:04 PM EDT [facility] RDW 12.8 11.0 - 15.0 % LAB HEMETOLOGY METHOD 01/30/2025 2:04 PM EDT [facility] Platelets 311 130 - 400 K/mcL LAB HEMETOLOGY METHOD 01/30/2025 2:04 PM EDT [facility] MPV 10.0 7.0 - 11.0 FL LAB HEMETOLOGY METHOD 01/30/2025 2:04 PM [facility] NRBC 0.0 <1.0 % LAB HEMETOLOGY METHOD 01/30/2025 2:04 PM [facility] NRBC Absolute 0.00 <0.10 K/mcL LAB HEMETOLOGY METHOD 01/30/2025 2:04 PM [facility] Neutrophils Relative 54.6 % LAB HEMETOLOGY METHOD 01/30/2025 2:04 PM [facility] Lymphocytes Relative 35.1 % LAB HEMETOLOGY METHOD 01/30/2025 2:04 PM [facility] Monocytes Relative 6.6 % LAB HEMETOLOGY METHOD 01/30/2025 2:04 PM [facility] Eosinophils Relative 2.1 % LAB HEMETOLOGY METHOD 01/30/2025 2:04 PM [facility] Basophils Relative 0.9 % LAB HEMETOLOGY METHOD 01/30/2025 2:04 PM [facility] Immature Granulocytes Relative 0.7 % LAB HEMETOLOGY METHOD 01/30/2025 2:04 PM [facility] Neutrophils Absolute 5.78 1.50 - 7.00 K/mcL LAB HEMETOLOGY METHOD 01/30/2025 2:04 PM [facility] Lymphocytes Absolute 3.71 1.00 - 5.00 K/mcL LAB HEMETOLOGY METHOD 01/30/2025 2:04 PM [facility] Monocytes Absolute 0.70 0.20 - 1.00 K/mcL LAB HEMETOLOGY METHOD 01/30/2025 2:04 PM [facility] Eosinophils Absolute 0.22 0.00 - 0.50 K/mcL LAB HEMETOLOGY METHOD 01/30/2025 2:04 PM [facility] Basophils Absolute 0.10 0.00 - 0.20 K/mcL LAB HEMETOLOGY METHOD 01/30/2025 2:04 PM EDT [facility] Immature Granulocytes Absolute 0.07(H) 0.00 - 0.03 K/[facility] LAB HEMETOLOGY METHOD 01/30/2025 2:04 PM EDT [facility] Blood Venous blood specimen / Unknown Venipuncture / Unknown 01/30/2025 12:20 PM EDT 01/30/2025 12:20 PM EDT us Rossi Carlos MD LAB BLOOD ORDERABLES Final Resul t [facility] [address] [place] [address], [place] [phone] * (ABNORMAL) Comprehensive metabolic panel (01/30/2025 12:20 PM EDT) Sodium 133 133 - 145 mmol/L LAB CHEMISTRY METHOD 01/30/2025 8:13 PM [facility] Potassium 4.9 3.5 - 5.5 mmol/L LAB CHEMISTRY METHOD 01/30/2025 8:13 PM [facility] Chloride 102 96 - 110 mmol/L LAB CHEMISTRY METHOD 01/30/2025 8:13 PM [facility] CO2 26 21 - 32 mmol/L LAB CHEMISTRY METHOD 01/30/2025 8:13 PM [facility] Anion Gap 5 3 - 11 LAB CHEMISTRY METHOD 01/30/2025 8:13 PM [facility] Glucose 74 70 - 100 mg/dL LAB CHEMISTRY METHOD 01/30/2025 8:13 PM [facility] BUN 26(H) 5 - 25 mg/dL LAB CHEMISTRY METHOD 01/30/2025 8:13 PM [facility] Creatinine 0.84 0.50 - 1.10 mg/dL LAB CHEMISTRY METHOD 01/30/2025 8:13 PM [facility] eGFR 71 >=60 mL/min/1. 73m2 LAB CHEMISTRY METHOD 01/30/2025 8:13 PM [facility] Comment:Calculation based on the Chronic Kidney Disease Epidemiology Collaboration (CKD-EPI) equation refit without adjustment for race. BUN/Creatinine Ratio 31.0 LAB CHEMISTRY METHOD 01/30/2025 8:13 PM [facility] Calcium 9.1 8.5 - 10.5 mg/dL LAB CHEMISTRY METHOD 01/30/2025 8:13 PM [facility] AST (SGOT) 19 10 - 42 unit/L LAB CHEMISTRY METHOD 01/30/2025 8:13 PM [facility] ALT (SGPT) 17 10 - 60 unit/L LAB CHEMISTRY METHOD 01/30/2025 8:13 PM [facility] Alkaline Phosphatase 87 42 - 121 unit/L LAB CHEMISTRY METHOD 01/30/2025 8:13 PM [facility] Total Protein 6.4 6.0 - 8.0 g/dL LAB CHEMISTRY METHOD 01/30/2025 8:13 PM [facility] Albumin 3.9 3.2 - 5.0 g/dL LAB CHEMISTRY METHOD 01/30/2025 8:13 PM [facility] Total Bilirubin 0.4 0.0 - 1.4 mg/dL LAB CHEMISTRY METHOD 01/30/2025 8:13 PM T [facility] Blood Venous blood specimen / Unknown Venipuncture / Unknown 01/30/2025 12:20 PM EDT 01/30/2025 12:20 PM EDT us Rossi Carlos MD LAB BLOOD ORDERABLES Final Resul t [facility] [address] [place] [address], [place] [phone] * XR Chest 2 Views (01/30/2025 12:05 PM EDT) Anatomical Region Laterality Modality Body Radiographic Leatha ging 01/30/2025 4:37 PM EDT Impressions 01/30/2025 4:38 PM EDT No acute cardiopulmonary process. -------- FINAL REPORT -------- Dictated By: Kishore Atkins Dictated Date: 01/30/2025 16:37 ET Assigned Physician: Kishore Atkins Reviewed and Electronically Signed By: Kishore Atkins Signed Date: 01/30/2025 16:38 ET Workstation ID: [id number] Transcribed By: Self Edit Transcribed Date: 01/30/2025 16:37 ET Narrative 01/30/2025 4:38 PM EDT HISTORY: cough URI, fatigue TECHNIQUE: PA and lateral radiographs of the chest COMPARISON: Chest radiograph from 06/06/2023 FINDINGS: There is a normal cardiomediastinal silhouette. Linear scarring within the right upper and midlung zones. T12 vertebral body vertebroplasty. Atherosclerosis of the thoracic aorta. Procedure Note Kishore Atkins MD - 01/30/2025 HISTORY: cough URI, fatigue TECHNIQUE: PA and lateral radiographs of the chest COMPARISON: Chest radiograph from 06/06/2023 FINDINGS: There is a normal cardiomediastinal silhouette. Linear scarring within theright upper and midlung zones. T12 vertebral body vertebroplasty.Atherosclerosis of the thoracic aorta. IMPRESSION: No acute cardiopulmonary process. -------- FINAL REPORT -------- Dictated By: Kishore Atkins Dictated Date: 01/30/2025 16:37 ET Assigned Physician: Kishore Atkins Reviewed and Electronically Signed By: Kishore Atkins Signed Date: 01/30/2025 16:38 ET Workstation ID: [id number] Transcribed By: Self Edit Transcribed Date: 01/30/2025 16:37 ET Rossi Carlos MD IMG XR PROCEDURES Final Result * [facility]EX[facility]IAL [facility]LE[facility] (09/28/2022 4:50 PM EDT) Anatomical Region Laterality Modality Mammography 09/27/2022 9:52 AM EDT Narrative 09/28/2022 4:50 PM EDT [facility] Diagnostic Imaging Department [address] [place] [address] Patient: CARMEN EUCEDA Melissa AlbrechtB./Age/Sex: 1945 - 76 - F Unit#: [id number] Location/Status: SPDIMAM/REG CLI [facility]em[facility] Ordering Physician: ROSSI CARLOS MD Carmen Dexa Axial Skeleton - 09/27/221041 History: Low estrogen state due to menopause. Current smoker. Parent hip fracture. Chronic glucocorticoid use. Adult fracture (ankle, heel, wrist). On omeprazole. Comparison: 02/02/16 Findings: Bone densitometry is performed utilizing dual energy x-ray absorptiometry (DXA) in the VOICEPLATE.COMigUiTV unit. The lumbar spine and proximal femora are evaluated in the AP projection. The FRAX questionaire was completed. The results indicate low bone mass (osteopenia), with a left femoral neck T- score of -2.4. The Z score is -0.5, indicating bone mineral density within the range of normal for age. There has been a statistically significant decrease in bone mineral density in the left total femur since the previous study. The detailed DEXA report will be mailed to the referring physician's office. DualFemur FRAX: 10-year Probability of Fracture: Major Osteoporotic 55.9 percent Hip 44.4 percent. IMPRESSION: Osteopenia. [id number] Dictating Physician: CHANTELLE MENDEZ MD Electronically Signed by: CHANTELLE MENDEZ MD Dic Date/Time: 09/28/22 1648 Sign date/Time: 09/28/22 1650 Procedure Note Chantelle Mendez MD - 06/29/2023 [facility] Diagnostic Imaging Department [address] [place] [address] Patient: CARMEN EUCEDA Melissa AlbrechtB./Age/Sex: 1945 - 76 - F Unit#: [id number] Location/Status: [facility] CLI Mnemonic/Ordering Site: [facility] Ordering Physician: ROSSI CARLOS MD Carmen Dexa Axial Skeleton - 09/27/22 - 1042 History: Low estrogen state due to menopause. Current smoker. Parent hip fracture. Chronic glucocorticoid use. Adult fracture (ankle, heel, wrist).On omeprazole. Comparison: 02/02/16 Findings: Bone densitometry is performed utilizing dual energy x-ray absorptiometry(DXA) in the SoBiz10 unit. The lumbar spine and proximal femora areevaluated in the AP projection. The FRAX questionaire was completed. The results indicate low bone mass (osteopenia), with a left femoral neckT- score of -2.4. The Z score is -0.5, indicating bone mineral density withinthe range of normal for age. There has been a statistically significantdecrease in bone mineral density in the left total femur since the previous study.The detailed DEXA report will be mailed to the referring physician's office. DualFemur FRAX: 10-year Probability of Fracture: Major Osteoporotic 55.9 percent Hip 44.4 percent. IMPRESSION: Osteopenia. [id number] Dictating Physician: CHANTELLE MENDEZ MD Electronically Signed by: CHANTELLE MENDEZ MD Dic Date/Time: 09/28/22 1648 Sign date/Time: 09/28/22 1650 Rossi Carlos MD IMG BI PROCEDURES Final Result * Colonoscopy (08/31/2017) Colonoscopy negative Anatomical Region Laterality Modality Other Result [facility] Historical Provider HEALTH MAINTENANCE Final Result * Hepatitis C Screening (07/02/2015) Hepatitis C Screening abstracted Historical Provider HEALTH MAINTENANCE Final Result from Last 3 Months or Most Recently Relevant to Health Maintenance Insurance [employer] [place] [employer] Advance Directives * Full Code - Default (Latest Code Status on File) Date Activated Date Inactivated Comments 06/24/2024 2:50 PM 06/25/2024 4:55 AM This is orde r is used when code status has not been discussed with the patient, or code status is otherwise unknown/unconfirmed To update the patient's code status, place a code status order. Do not modify or discontinue any currently active code status orders. * Full Code - Default Date Activated Date Inactivated Comments 06/24/2024 11:46 AM 06/24/2024 2:50 PM This is ord er is used when code status has not been discussed with the patient, or code status is otherwise unknown/unconfirmed To update the patient's code status, place a code status order. Do not modify or discontinue any currently active code status orders. Care Teams Tactical Air Defense Controller Relationship Specialty Start Date End Date Rossi Carlos MD [address] [place] [address] PCP - General Internal Medicine 03/16/21
--- OUTSIDE RECORDS SUMMARY | 2025-04-29 15:03 | XMS_ITS | Clinical Summary ---
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 0 Active buPROPion (WELLBUTRIN XL) 150 MG 24 hr tablet Take 1 tablet (150 mg total) by mouth daily. 0 Active calcium citrate-vitamin D (CITRACAL+D) 315-200 MG-UNIT per tablet Take 1 tablet by mouth 2 (two) times a day. 0 Active montelukast (SINGULAIR) 10 MG tablet Take 1 tablet (10 mg total) by mouth every night at bedtime. 0 Active amLODIPine-benazepri l (LOTREL) 5-10 MG per capsule Take 1 capsule by mouth daily. 0 Active omeprazole (PriLOSEC) 20 MG capsule Take 1 capsule (20 mg total) by mouth daily. 0 Active ezetimibe (ZETIA) tablet 10 mg Take 1 tablet (10 mg total) by mouth daily. 0 Active amoxicillin-clavulan ate (AUGMENTIN) 875-125 MG per tablet Take 1 tablet by mouth 2 (two) times a day. 14 tablet 0 11/12/2020 Active hydroCHLOROthiazide (HYDRODIURIL) tablet 12.5 mg Take 1 tablet (12.5 mg total) by mouth daily. 0 Active metoprolol tartrate (LOPRESSOR) 25 MG tablet Take 0.5 tablets (12.5 mg total) by mouth 2 (two) times a day. 0 Active albuterol 108 (90 Base) MCG/ACT inhaler Inhale 2 puffs into the lungs every 6 (six) hours as needed for wheezing. 0 Active fluticasone (FLONASE) 50 MCG/ACT nasal spray spray/apply 1 spray in each nostril daily. 0 Active escitalopram (LEXAPRO) 20 MG tablet Take 1 tablet (20 mg total) by mouth daily. 0 Active tiotropium (SPIRIVA) [address] 1 capsule (18 mcg total) into inhaler and inhale daily. 0 Active aspirin EC 81 MG tablet Take 1 tablet (81 mg total) by mouth daily. 0 Active meclizine (ANTIVERT) 12.5 MG tablet Take 1 tablet (12.5 mg total) by mouth as needed for dizziness or nausea. 0 Active Active Problems Problem Noted Date Diagnosed Date Primary cancer of right upper lobe of lung 02/21 Cancer Staging:Pathologic stage from 02/22/2018:Stage IA2(pT1b, pN0, cM0) - Signed by Kathy Rene DO on 02/21/2022 Nodule of left lung 02/21/2022 Tobacco use disorder 02/21/2022 Family History Medical History Relation Name Comments No Sig Med Hx Brother Hypertension Father Cancer Maternal Grandmother No Sig Med Hx Mother Relation Name Status Comments Brother Father [...] file Not on file Not on file Last Filed Vital Signs Vital Sign Reading Time Taken Comments Blood Pressure 139/47 02/06/2024 10:38 AM EDT Pulse 74 02/06/2024 10:38 AM EDT Temperature 36.6 C (97.9 F) 02/06/2024 10:38 AM EDT Respiratory Rate - - Oxygen Saturation 98% 02/06/2024 10: 38 AM EDT Inhaled Oxygen Concentration - - Weight 62.5 kg (137 lb 12.8 oz) 024 10:38 AM EDT Height 165.1 cm (5' 5 ) 02/06/2024 10:3 8 AM EDT Body Mass Index 22.93 02/06/2024 10:38 AM EDT Plan of Treatment Health Maintenance Due Date Last Done Comments Hepatitis C Screening 1945 Depression Screening 1958 Preventative Health Evaluation 1964 Fall Risk Assessment 12/24/2011 Osteoporosis Screening (DEXA Scan) 12/24/2011 Pneumococcal Vaccine (3 of 3 - PCV) 12/29/2017 12/29/2016, 01/30/2012, 07/02/2010, Additional history exists DTap / Tdap / Td (2 - Td or Tdap) 05/28/2018 05/28/2008 Shingrix-Zoster Vaccine (2 of 2) 03/18/2019 01/21/2019 RSV Adult > 60+ Yrs or (1 - 1-dose 75+ series) 2021 COVID-19 Vaccine (4 - 2024- season) 2025 02/17/2022, 07/21/2020, 06/30/2020 Influenza Vaccine (#1) 2025 3, 02/17/2022, 03/16/2021, Additional history exists Hepatitis B Vaccines Aged Out No long er eligible based on patient's age to complete this topic RSV Ped < 20 months Aged Out No longe r eligible based on patient's age to complete this topic Care Teams [employer] Workers Relationship Specialty Start Date End Date Zeke Carlos MD PCP - General Internal Medicine 11/23/21
--- OUTSIDE RECORDS SUMMARY | 2025-04-29 15:03 | XMS_ITS | Clinical Summary ---
Author Organization [facility] Address [address] [place] [address] Phone Care Team Providers Care Truck Cleaner Name Role Phone JeardParminder Ursula Angie DO Primary Car e Provider Allergies Active [...] VACCINE (1 - 1-dose 75+ series) 2021 INFLUENZA VACCINE (#1) 2024 , 01/21/2019, 02/07/2018, Additional history exists COVID-19 VACCINE (2024- season) 2025 07/21/2020, 07/02/2020, 06/30/2020 Adult Td,Tdap Booster 02/25/2029 [...] REPLACEMENT [employer] [place] [employer] HMO REPLACEMENT [facility] MEDICARE HMO REPLACEMENT [employer] [place] [employer] HMO REPLACEMENT Care Teams Truck Cleaner Relationship Specialty Start Date End Date Ursula Alcala DO [address] [place] [address] PCP - General Internal Medicine 12/24/18 Additional Source Comments The information contained in this document represents components of the legal health record. It is not the complete legal health record.[facility]
--- OUTSIDE RECORDS SUMMARY | 2025-04-29 15:03 | XMS_ITS | Encounter Summary ---
Author Organization [facility] Prior to 10/25/[address] [place] [address] Care Team Providers Care Exercise Science Instructor Name Role Phone Zeke Carlos MD Primary Care Provider [phone] Encounter Details Date Type Department Care Team Description 02/18/2024 Nurse Only [facility] [address] [place] [address] Smita Martinez RN Social History Tobacco Use Types Packs/Day Years [...] file Not on file Not on file documented as of this encounter Progress Notes * Smita Martinez RN - 02/18/2024 9:50 AM EDT Images from the original note were not included. - full report has been uploaded under media documented in this encounter Plan of Treatment Not on file documented as of this encounter Visit Diagnoses Not on filedocumented in this encounter Care Teams Exercise Science Instructor Relationship Specialty Start Date End Date Zeke Carlos MD PCP - General Internal Medicine 11/23/21 documented as of this encounter
== END 2025-04-29 13:42 | disposition home or self-care (01) ==
PROVIDERS: PCP Internal Medicine; Visit Provider Physician Assistant
DX: J06.9 Acute upper respiratory infection, unspecified (principal)

== ENCOUNTER 2025-04-29 12:47 | Outpatient (REF) | payer MEDICARE, SELFPAY ==
[2025-04-29 18:00] LABS: Resp Syncy Virus RNA Qual PCR NEGATIVE (Negative); SARS COV2 PCR INHOUSE NEGATIVE (Negative)
--- OUTSIDE RECORDS SUMMARY | 2025-04-29 19:03 | XMS_ITS | Data Portability ---
Author Organization [facility], [id number] Address [address] [place] [address] Assessment No assessment recorded. Plan of Treatment [...] ICD10 Code Diagnosis IMO Codes Diagnosis Note [id number] [address] [place] [address] 02/23/2015 18:35:56 02/23/2015 20:03:19 [id number] [address] [place] [address] 06/05/2017 12:16:53 06/05/2017 13:08:15 [id number] [address] [place] [address] 07/15/2018 19:22:28 07/15/2018 20:29:19 [id number] [address] [place] [address] 12/03/2018 19:26:40 12/03/2018 20:00:04 [id number] [address] [place] [address] 10/23/2020 13:41:04 10/23/2020 14:57:33 [id number] [address] [place] [address] 12/10/2018 19:42:18 12/10/2018 19:55:53 [id number] [address] [place] [address] 10/01/2016 13:08:27 10/01/2016 13:34:25 [id number] [address] [place] [address] 06/03/2018 11:29:30 06/03/2018 11:59:16 [id number] [address] [place] [address] 12/21/2016 12:07:00 12/21/2016 12:48:29 [id number] [address] [place] [address] 10/10/2020 10:26:24 10/10/2020 11:58:18 [id number] [address] [place] [address] 11/03/2016 10:21:59 11/03/2016 11:11:27 Health Concerns Section Related Observation LastModified by Organization Detai ls LastModified Time None Recorded Concern Status LastModified by Organization Details LastModified Time None Recorded Advance Directives Directive None Recorded Payers Insurance Date Sequence Insurance Name Policy Number Policy Jenkins Covered Member ID Jenkins Member ID Guarantor Name 06/30/2022 1 [facility] [id number] Carmen Grace [id number] Carmen Grace OBGyn Episode No OBEpisode recorded.
--- OUTSIDE RECORDS SUMMARY | 2025-04-29 19:04 | XMS_ITS | Data Portability ---
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 Procedures Surgical History Date Name Laterality Status Provider Name and Address Organization Details Recorded Time 03/17/20 24 Fiberoptic Laryngoscopy (Comprehensive) completed Jaquelin Pickard MA - [facility] 03/17/2024 16:06:41 Appendectomy completed Obdulia Tate [facility] 03/17/2024 15:29:13 Cataract Surgery completed Obdulia Tate MA [facility] 03/17/2024 15:29:18 Hysterectomy completed Obdulia Tate MA [facility] 03/17/2024 15:29:25 lithotripsy completed Obdulia Tate [facility] 03/17/2024 15:29:33 lobectomy of lung completed Obdulia Tate [facility] 03/17/2024 15:29:51 Imaging Results None recorded. [...] Updated DateTime 06/18/2024 165.1 cm 22 kg/m2 81686.19 g Fady Cotto [facility] 06/18/2024 10:30:05 Social History None recorded. 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 Hoarse 13393762 R49.0 History of primary malignant neoplasm of lung 857082331 Z85.118 follow with thoracic surgery Health Concerns Section Related Observation LastModified by Organization Detai ls LastModified Time None Recorded Concern Status LastModified by Organization Details LastModified Time None Recorded Advance Directives Directive None Recorded Payers Insurance Date Sequence Insurance Name Policy Number Policy Jenkins Covered Member ID Jenkins Member ID Guarantor Name 07/04/2024 1 [facility] [id number] 01 Carmen Grace [id number] Carmen Grace 07/04/2024 1 [facility] - MEDICARE ADVANTAGE PLAN (MEDICARE REPLACEMENT HMO) [id number] Carmen Grace [id number] Carmen Grace Notes Date Note Type Note [...] throat, hemoptysis, nor fevers. FLOR SHETH MD [address] [place] [address], [phone], [facility] - [facility] 03/17/2024 16:52:26 06/18/2024 text/html ROS as [...] at 06/04/2024 10:36 AM MARIO SHETH MD [address] [place] [address], [phone], [facility] - [facility] 06/18/2024 10:49:44 OBGyn Episode No OBEpisode recorded.
== END 2025-04-29 12:48 | disposition home or self-care (01) ==
LOC: HO.LNP 12:47
PROVIDERS: PCP Internal Medicine; Visit Provider Physician Assistant
DX: J06.9 Acute upper respiratory infection, unspecified (principal); Z87.891 Personal history of nicotine dependence
CPT/HCPCS: 87637; 99212

== ENCOUNTER 2025-05-01 11:48 | Outpatient (AMB) | payer MEDICARE, SELFPAY ==
[2025-05-01 11:55] VITALS: BP 152/50; PULSE 83; TEMP 37.7; O2SAT 95; BMI 26.0
--- NOTE | 2025-05-01 11:55 | MHC.OFFWIV ---
Intake Vital Signs 05/01/25 11:55 Height 5 ft 5 in Weight 156 lb BMI 26.0 BP 152/50 H Blood Pressure Location Lt brachial Position Sitting Pulse 83 Pulse Source Pulse Oximeter Temp 99.9 F Temp Source Oral Pulse Oximetry (%) 95 Oxygen Delivery Method Room Air Intake Visit Reasons: EP Sore throat, cough Intake Note: pt presents with worsening cough, seen on 04/29 and rx'd with prednisone and benzonatate Patient Tobacco Use Status: Former Tobacco user Allergies levofloxacin (From Levaquin) Allergy (Intermediate, Verified 05/01/25 11:56) diarrhea and vomiting codeine (CODEINE) Allergy (Unknown, Verified 05/01/25 11:56) STOMACH UPSET cephalexin (From Keflex) Adverse Reaction (Intermediate, Verified 05/01/25 11:56) Diarrhea and vomiting Do you need a note to return to daycare/school/sports/work: No HPI HPI Comments History of Present Illness Details This is a 79-year-old female who presented to the walk-in clinic complaining of a persistent and worsening cough x 1 week. Patient was seen at the walk-in clinic on 04/29/2025 and diagnosed with acute bronchitis secondary to viral URI. She was given prednisone as well as benzonatate, which have not been effective. She states that her cough is worsening and she continues to cough up yellow-green sputum. She states that she has been up all night coughing as she is unable to lay flat, which makes her cough worse. She has been taking her medication as prescribed although she states that the provider mentioned sending her an albuterol inhaler but the pharmacy did not have a prescription for an albuterol inhaler. She reports shortness of breath with coughing fits but otherwise denies shortness breath at rest or with exertion. She denies any fevers or chills. She reports mild nasal and sinus congestion, rhinorrhea, and sore throat. Patient was tested for COVID, flu, and RSV during her last visit and those were negative. [facility] Social History Patient Tobacco Use Status: Former Tobacco user Review of Systems Const All systems reviewed & are unremarkable except as noted in HPI and below Reports no additional complaints Eyes Reports no additional complaints ENT Reports no additional complaints Card Reports no additional complaints Resp Reports no additional complaints GI Reports no additional complaints Reports no additional complaints Musc Reports no additional complaints Skin/Breast Reports system reviewed and no additional complaints, except as documented Neuro Reports no additional complaints Psych Reports no additional complaints Endo Reports no additional complaints Harry/Lymph Reports no additional complaints Aller/Immun Reports no additional complaints Physical Exam Exam Exam: Vital signs reviewed. Constitutional: Non-toxic appearing. No acute distress. Well-developed and well-nourished. HEENT: Normocephalic and atraumatic. PERRL/EOMI. Tympanic membranes without erythema, edema, or bulging bilaterally. External auditory canals without erythema or edema bilaterally. Moist mucous membranes. No pharyngeal erythema or exudates. + Mild postnasal drip. Skin: Warm and dry. No rashes or lesions noted. Neck: Full and painless range of motion. No cervical lymphadenopathy. Cardio: Regular rate and rhythm. No murmurs, gallops, or rubs. No lower extremity edema. No JVD. Pulmonary: No respiratory distress. No accessory muscle usage. There is scant end expiratory wheezing mostly at the lower lobes. Gastrointestinal: Soft, non-tender, and non-distended in all 4 quadrants. Musculoskeletal: Normal range of motion in joints throughout the body. No deformity or other signs of injury. Neuro: Alert and oriented x4. Cranial nerves 2-12 grossly intact. No focal deficits appreciated. Psych: Normal mood and affect. Vital Signs: Last Vital Signs Temp 99.9 F 05/01/25 11:55 Pulse 83 05/01/25 11:55 BP 152/50 H 05/01/25 11:55 Pulse Ox 95 05/01/25 11:55 Oxygen Delivery Method Room Air 05/01/25 11:55 BMI result Body Mass Index 26.0 Assessment & Plan Assessment & Plan (1) URI, acute: Code(s): J06.9 - Acute upper respiratory infection, unspecified (2) Acute bronchitis: Code(s): J20.9 - Acute bronchitis, unspecified Qualifiers: Bronchitis organism: unspecified organism Qualified Code(s): J20.9 - Acute bronchitis, unspecified Plan 79-year-old female who presented to the walk-in clinic complaining of a persistent and worsening cough x 1 week. Patient has been using prednisone and benzonatate as prescribed her 2 days ago but her cough continues to worsen. On physical examination, she continues to have end expiratory wheezing at the lung bases. Patient was given a prescription for PO azithromycin 500 mg today followed by 250 mg daily x4 days as well as codeine/guaifenesin cough syrup every night at bedtime as needed for cough. She was also given a prescription for an albuterol inhaler. She was instructed to follow-up here or proceed to the emergency room if she were to develop worsening sputum production or purulence, fever/chills, or worsening shortness breath. Patient verbalized understanding and is agreeable with the plan. Medications: New azithromycin For 250 mg dose pack: take 500 mg today (day 1), then 250 mg for 4 days (days 2-5) PO 6 tabs 0RF codeine-guaifenesin 7.5-225 mg/5 mL 5 mL PO .qhs PRN 473 mL 0RF cough Changed From albuterol sulfate 90 mcg/actuation inhalation To albuterol sulfate 90 mcg/actuation 1 inh inhalation Q4-6H PRN 6.7 grams 0RF wheezing,shortness of breath Coding Level of Care Code Est Pt Level 3 (52407) Diagnoses URI, acute J06.9 Acute bronchitis, unspecified organism J20.9 Bronchitis organism: unspecified organism
== END 2025-05-01 12:44 | disposition home or self-care (01) ==
PROVIDERS: PCP Internal Medicine; Visit Provider Physician Assistant Medical
DX: J06.9 Acute upper respiratory infection, unspecified (principal); J20.9 Acute bronchitis, unspecified

== ENCOUNTER → 2025-05-01 11:48 | Outpatient (BNVA) | payer MEDICARE, SELFPAY | PROVIDERS: PCP Internal Medicine; Visit Provider Physician Assistant Medical | DX: R06.02 Shortness of breath (principal); J20.9 Acute bronchitis, unspecified; J06.9 Acute upper respiratory infection, unspecified; Z79.52 Long term (current) use of systemic steroids | CPT/HCPCS: 99212 ==

== ENCOUNTER 2025-05-06 12:08 | Outpatient (REF) | payer MEDICARE, SELFPAY ==
--- OUTSIDE RECORDS SUMMARY | 2024-03-28 09:48 | XMS_ITS | Encounter Summary ---
Author Organization [facility] Address [address] [place] [address] Care Team Providers Care Mill Machinist Name Role Phone Zeke Carlos MD Primary Care Provider [phone] Encounter Details Date Type Department Care Team (Late st Contact Info) Description 03/28/2024 10:48 AM EDT Hospital Encounter TH HISTORIC ENCOUNTERS [facility] ONLY Kishan Flynn MD [address] [place] [phone] Social History Tobacco Use Types Packs/Day Years [...] care for your loved ones. For example, early childhood specialist or elderly care for an older adult? [...] Info) Description 05/08/2025 9:45 AM EST Appointment [facility] CT Scan [address] [place] [address] 05/08/2025 11:30 AM EST Appointment [facility] CT Scan [address] [place] [address] 05/11/2025 11:00 AM EST Office Visit Vascular Surgery - [place] [address] [place] [phone] Ronen Vernon MD [address] [place] [address] 05/14/2025 10:30 AM EST Office Visit Thoracic Surgery - [place] 299 [facility] [address] [place] [address] Raine Ballard PA [address] [place] [address] 04/06/2026 10:00 AM EST Office Visit [facility] Hematology Oncology [address] [place] [address] Kathy Rene DO [address] [place] [address] documented as of this encounter Procedures Procedure Name Priority Date/Time Associated Diagnosis Comments DR ABDOMEN FLAT AND ERECT Routine 03/28/2024 11:37 AM EDT documented in this encounter Results * DR ABDOMEN FLAT AND ERECT (03/28/2024 11:37 AM EDT) Anatomical Region Laterality Modality Radiographic Leatha ging 03/28/2024 10:5 4 AM EDT Narrative 03/28/2024 11:37 AM EDT [facility] Diagnostic Imaging Department [address] [place], [place] [phone] Patient: PRINCESS EUCEDA D.O.B./Age/Sex: 1945 - Unit#: [id number] Location/Status: SPDIGEN/REG CLI Mnemonic[facility] [...] seen. IMPRESSION: Nonobstructive bowel gas pattern. Code 32997 Dictating Physician: YESI KULKARNI MD Electronically Signed by: YESI KULKARNI MD Dic Date/Time: 03/28/24 1136 Sign date/Time: 03/28/24 1137 Procedure Note Yesi Kulkarni MD - 03/29/2024 [facility] Diagnostic Imaging Department [address] [place] [address] Patient: PRINCESS EUCEDA Melissa Hackett/Age/Sex: 1945 - Unit#: [id number] Location/Status: SPDIGEN/REG CLI [facility] Ordering Physician: KISHAN FLYNN MD DR Abdomen [...] seen. IMPRESSION: Nonobstructive bowel gas pattern. Code 90785 Dictating Physician: YESI KULKARNI MD Electronically Signed [...] documented as of this encounter Care Teams Mill Machinist Relationship Specialty Start Date End Date Zeke Carlos MD [address] [place] [address] PCP - General Internal Medicine 03/16/21 documented as of this encounter
--- NOTE | ~2025-05-06 | XR_ITS ---
EXAMINATION: XR CHEST 2 VIEWS HISTORY: R05.9 - Cough, unspecified COMPARISON: There are no prior studies available for comparison. FINDINGS: PA and lateral views of the chest are submitted. There is extensive scarring in both lungs. A focal opacity is seen in the right upper lobe abutting the minor fissure, compatible with pneumonia. There is no pleural effusion, pneumothorax, or pulmonary vascular congestion. The heart is normal in size. The aorta is calcified. There is degenerative disc disease of the spine. The patient is status post lower thoracic kyphoplasty. XR/XR chest 2V IMPRESSION: Right upper lobe pneumonia. Follow-up is recommended to document resolution and exclude underlying neoplasm. Electronically signed by: Naun Blake MD 05/06/2025 01:52 PM MARIO THAYER
[2025-05-06 18:13] LABS: Resp Syncy Virus RNA Qual PCR NEGATIVE (Negative); SARS COV2 PCR INHOUSE NEGATIVE (Negative)
--- OUTSIDE RECORDS SUMMARY | 2025-05-06 20:24 | XMS_ITS | Clinical Summary ---
Author Organization [facility] Address [address] [place] [address] Phone Care Team Providers Care Manager Of Planning Name Role Phone Rossi Carlos MD Primary Care Provider [phone] Allergies Active Allergy Reactions Criticality Noted Date Comments Cephalexin Diarrhea,Nausea Only,GI intolerance,Unknown 03/27/2018 Codeine Nausea And Vomiting,Dizziness,GI intolerance,Unknown Medium 04/26/2016 Epinephrine 05/20/2024 Levofloxacin Diarrhea,Nausea Only,GI intolerance,Unknown 03/27/2018 Gfdvssx-Hje-Uap Reductase Inhibitors Medium 06/04/2019 Muscles aches Medications [...] day at the same time. 025 Discontinued Active Problems Problem Noted Date Diagnosed Date Bradycardia 01/31/2025 Overview (01/31/2025): See note January 30, 2025, beta-blockade discontinued. Primary cancer of left upper lobe of lung 2024 Superior mesenteric artery stenosis 06/16/2024 Mesenteric ischemia 06/16/2024 History of lung cancer 06/04/2024 Assessment [...] All questions were answered. COPD (chronic obstructive pulmonary disease) Assessment & Plan (06/04/2024 2:10 PM EST): Her breathing is stable. Her lungs are clear. She will continue on Spiriva, Singulair, and her albuterol inhaler as needed. Chest pain 09/26/2023 Hyperlipidemia 08/06/2023 Anxiety 08/06/2023 Moderate persistent asthma 08/06/2023 Tobacco use disorder 02/21/2022 Compression fracture of T12 vertebra 02/25/2019 Overview (08/06/2023): S/p kyphoplasty 10/2018 follows with [facility] Essential hypertension 11/25/2018 Overview (08/06/2023): Last [...] (08/06/2023): Multiple small nodules 2004; PET negative 2004; [...] general and how their size, shape, and post exchange manager time determine her level of suspicion for [...] general and how their size, shape, and post exchange manager time factor level of suspicion for malignancy. [...] We will also have her see a cement finisher helper for a risk assessment given she has significant peripheral vascular disease and the coincidence of peripheral vascular disease and coronary artery disease. Resolved Problems Problem Noted Date Diagnosed Date Resolved Date Primary cancer of right upper lobe of lung 02/21/2022 06/04/2024 Adenocarcinoma of lung 12/06/201806/04 Overview (08/06/2023): Diagnosed November 2017, s/p VATS for upper and lower lobe resection and radiation Follows with [facility] Oncology Encounters Date Type Department Care Team Description 04/15/2025 Results Follow-Up Vascular Surgery - [place] [address] [place] [phone] Peggy Cordoba PA 04/13/2025 11:15 AM EST Lab Draw Station - [address] [facility] [address] [place] [phone] PAD (peripheral artery disease) (CMS/HCC V24); S/P angioplasty with stent 04/13/2025 10:30 AM EST Office Visit Vascular Surgery - [place] [address] [place] [address] Ronen Vernon MD PAD (peripheral artery disease) ([facility]/HCC V24) (Primary Dx); S/P angioplasty with stent 04/08/2025 10:00 AM EST Ancillary Procedure [facility] - [address] [place] [phone] Atherosclerosis; PAD (peripheral artery disease) ([facility]/HCC V24) 04/06/2025 10:00 AM EST Office Visit [facility] Hematology Oncology [address] [place] [phone] Kathy Rene DO Primary cancer of left upper lobe of lung ([facility]/HCC V24, [facility]/HCC V28) (Primary Dx) 03/10/2025 Telephone Adult Medicine [address] [phone] Rossi Carlos MD 03/09/2025 1:57 PM EDT - 03/09/2025 11:59 PM EDT Hospital Encounter [address] [phone] Neck pain; Acute right ankle pain Discharge Disposition: Home or Self Care 03/09/2025 1:30 PM EDT Office Visit Adult [address] [phone] Marquis Cardona NP Neck pain (Primary Dx); Acute right ankle pain; Essential hypertension 03/09/2025 Results Follow-Up Adult Medicine [address] [phone] Marquis Cardona NP 03/09/2025 Telephone Adult Medicine [address] [phone] Rossi Carlos MD from Last 3 Months Immunizations Immunization Administration [...] bx.-benign OTHER SURGICAL HISTORY 12/26/2022 Bilateral PROCEDURE: MN REVASCULARIZATION ILIAC ARTERY ANGIOP 1ST VSL OTHER SURGICAL HISTORY 12/26/2022 Bilateral PROCEDURE: MN REVASC INTRAVASC LITHOTRIPSY OTHER SURGICAL HISTORY 01/25/2023 Left PROCEDURE: MN TEAEC W/GRAFT POPLITEAL ARTERY OTHER SURGICAL HISTORY 07/03/2023 PROCEDURE: MN REVSC OPN/PRG FEM/POP W/ANGIOPLASTY UNI OTHER SURGICAL HISTORY 07/03/2023 PROCEDURE: MN INTRAVASCULAR US NONCORONARY RS&I INTIAL VESSEL OTHER SURGICAL HISTORY 07/03/2023 PROCEDURE: MN INTRAVASCULAR US NONCORONARY RS&I ADDL VESSEL OTHER SURGICAL HISTORY 07/03/2023 PROCEDURE: ULTRASOUND GUIDANCE FOR VASCULAR AC OTHER SURGICAL HISTORY 10/24/2023 Left PROCEDURE: MN THORACOSCOPY W/LOBECTOMY SINGLE LOBE; COMMENT: [facility] Medical [...] 6.1.14 - repeat5-10 years Adenocarcinoma of lung (CMS/ HCC V24, CMS/HCC V28) 12/06/2018 DX:Adenocarcinoma of lung (H CC); COMMENT: Diagnosed November 2017, s/p VATS for upper and lower lobe resection and radiation Follows with [facility] Oncology Anxiety DX:Anxiety Depression 05/19/2015 DX:Depression Osteopenia [...] Quit 12/2017 Compression fracture of T12 vertebra (CMS/HCC V24, CMS/HCC V28) 02/25/2019 DX:Compression fracture of T12 vertebra ([facility]); COMMENT: S/p kyphoplasty 10/2018 follows with [facility] History of lung cancer 03/13/2022 DX:Histor y of lung cancer Chest pain 09/26/2023 DX:Chest pain Pre-op exam 09/26/2023 DX:Pre-op exam Vocal cord paralysis left Primary cancer of right uppe r lobe of lung ([facility]/HCC V24, CMS/HCC V28) 02/21/2022 Family History Medical History Relation [...] for your loved ones. For example, child support investigator or elderly care for an older adult? [...] Orientation Straight 03/28/2024 10 :43 AM EDT Last Filed Vital Signs Vital Sign Reading [...] Info) Description 05/08/2025 9:45 AM EST Appointment [facility] CT Scan [address] [place] [phone] 05/08/2025 11:30 AM EST Appointment [facility] CT Scan [address] [place] [phone] 05/11/2025 11:00 AM EST Office Visit Vascular Surgery - [place] [address] [place] [phone] Ronen Vernon MD [address] [place] [address] 05/14/2025 10:30 AM EST Office Visit Thoracic Surgery - [place] [address] [facility] [address] [place] [phone] Raine Ballard PA [address] [place] [address] 04/06/2026 10:00 AM EST Office Visit [facility] Hematology Oncology [address] [place] [phone] Kathy Rene DO [address] [place] [address] Health Maintenance Due Date Last Done Comments Drug Screen 1945 Non-Opioid Controlled Substance Agreement 1945 Medicare Annual Wellness Visit 05/05/2022 COVID-19 Vaccine (2024- season) 2025 02/17/2022, 01/25/2021, 07/21/2020, Additional history [...] this topic Medical Devices Implanted Type Area Erosion Control Specialist Device Identifier Shelf Expiration Date Model / Serial / Lot Stent Graft Endovas 6x19mm 6f 135cm - [id number] - [id number] Implanted:Qty : 1 on 06/24/2024 by Ronen Vernon MD at [facility] Peripheral Vasc Drug Coated Stents N/A: Arterial [employer] [id number] 01/28/2027 [id number] / [id number] / Procedures Procedure Name Priority Date/Time Associated Diagnosis Comments BUN Routine 04/13/2025 11:14 AM EST PAD (peripheral artery disease) ([facility] V24) S/P angioplasty with stent CREATININE, SERUM Routine 04/13/2025 11: 14 AM EST PAD (peripheral artery disease) ([facility] V24) S/P angioplasty with stent VAS US DUPLEX LOWER EXT ARTERIES BILAT WITH NICK Routine 04/08/2025 10:51 AM EST Atherosclerosis PAD (peripheral artery disease) ([facility] V24) EXTERNAL XRAY REPORT 03/11/2025 EXTERNAL XRAY REPORT 03/11/2025 XR CERVICAL SPINE 4-5 VIEWS Routine 03/09/2025 2:04 PM EDT Neck pain Acute right ankle pain LIPID PANEL WITH REFLEX TO DIRECT LDL Routine 01/30/2025 12:20 PM EDT Other hyperlipidemia [facility] DEXA AXIAL SKELETON Routine 09/28/2022 4:50 PM EDT Other specified disorders of bone density and structure, other site COLONOSCOPY Routine 08/31/2017 HEPATITIS C SCREENING Routine 07/02/2015 from Last 3 Months or Most Recently Relevant to Health Maintenance Results * Creatinine (04/13/2025 11:14 AM EST) Creatinine 0.82 0.50 - 1.10 mg/dL LAB CHEMISTRY METHOD 04/13/2025 1:39 PM EST [facility] eGFR 73 >=60 mL/min/1. 73m2 LAB CHEMISTRY METHOD 04/13/2025 1:39 PM EST [facility] Comment:Calculation based on the Chronic Kidney Disease Epidemiology Collaboration (CKD-EPI) equation refit without adjustment for race. Blood Venous blood specimen / Unknown Venipuncture / Unknown 04/13/2025 11:14 AM EST 04/13/2025 11:57 AM EST us Ronen Vernon MD LAB BLOOD ORDERABLES Final Resu lt [facility] [address] [place] [address], [place] [phone] * BUN (04/13/2025 11:14 AM EST) [facility] BUN 18 5 - 25 mg/dL LAB CHEMISTRY METHOD 04/13/2025 1:39 PM EST [facility] Blood Venous blood specimen / Unknown Venipuncture / Unknown 04/13/2025 11:14 AM EST 04/13/2025 11:57 AM EST us Ronen Vernon MD LAB BLOOD ORDERABLES Final Resu lt [facility] [address] [place] [address], [place] [phone] * Vascular US duplex lower extremity arteries [...] PSV 72 cm/s CV VAS LAB Left TRIMMING INSPECTOR prox sys PSV 463 cm/s CV VAS [...] PSV 112 cm/s CV VAS LAB Right TRIMMING INSPECTOR prox sys PSV 322 cm/s CV VAS [...] The mid peroneal artery has biphasic flow. Process Manufacturing Engineer Details A tamayo scale, color and doppler analysis ultrasound was performed. During the study longitudinal views were obtained. Continuous wave doppler, pulsed wave doppler and pulsed volume recording (PVR) was performed. Overall the study quality was good. us Ronen Vernon MD CV VASCULAR PROCEDURES Final [...] Date: 03/09/2025 15:14 ET Assigned Physician: Kishore Atikns Reviewed and Electronically Signed By: Kishore Atkins Signed Date: 03/09/2025 15:32 ET Workstation ID: [id number] Transcribed By: Self Edit Transcribed Date: 03/09/2025 [...] Signed Date: 03/09/2025 15:32 ET Workstation ID: [id number] Transcribed By: Self Edit Transcribed Date: 03/09/2025 15:22 ET us Marquis Cardona BEHAVIORAL SCIENTIST IMG XR PROCEDURES Final Resu lt * (ABNORMAL) Lipid panel with reflex to direct LDL (01/30/2025 12:20 PM EDT) Cholesterol 228(H) 0 - 200 mg/dL LAB CHEMISTRY METHOD 01/30/2025 8:15 PM EDT [facility] Triglycerides 139 0 - 150 mg/dL LAB CHEMISTRY METHOD 01/30/2025 8:15 PM EDT [facility] HDL 89 >=40 mg/dL LAB CHEMISTRY METHOD 01/30/2025 8:15 PM EDT [facility] LDL Calculated 111(H) 0 - 100 mg/dL LAB CHEMISTRY METHOD 01/30/2025 8:15 PM EDT [facility] Comment:Estimated LDL Calcul ated using equation: Total cholesterol - HDL cholesterol - (Triglycerides/5) VLDL Cholesterol Kt 27.8 mg/dL LAB CHEMISTRY METHOD 01/30/2025 8:15 PM EDT [facility] Non HDL Chol. (LDL+VLDL) 139 <145 mg/dL LAB CHEMISTRY METHOD 01/30/2025 8:15 PM EDT [facility] Chol/HDL Ratio 2.6 0.0 - 4.4 LAB CHEMISTRY METHOD 01/30/2025 8:15 PM EDT [facility] Blood Venous blood specimen / Unknown Venipuncture / Unknown 01/30/2025 12:20 PM EDT 01/30/2025 12:20 PM EDT us Rossi Carlos MD LAB BLOOD ORDERABLES Final Resul t [facility] [address] [place] [address], * CARMEN DEXA AXIAL SKELETON (09/28/2022 4:50 PM EDT) Anatomical Region Laterality Modality Mammography 09/27/2022 9:52 AM EDT Narrative 09/28/2022 4:50 PM EDT [facility] Diagnostic Imaging Department [address] [place] [address] Patient: CARMEN GRACE/Age/Sex: 1945 - 76 - F Unit#: [id number] Location/Status: SPDIMAM/REG CLI Mnemonic/Ordering Site: MAMDEXAAX/SPMAM Ordering Physician: ROSSI CARLOS MD Carmen Dexa Axial Skeleton - 09/27/22 - 1042 History: Low estrogen state due to menopause. Current smoker. Parent hip fracture. Chronic glucocorticoid use. Adult fracture (ankle, heel, wrist). On omeprazole. Comparison: 02/02/16 Findings: Bone densitometry is performed utilizing dual energy x-ray absorptiometry (DXA) in the [employer] unit. The lumbar spine and proximal femora [...] 55.9 percent Hip 44.4 percent. IMPRESSION: Osteopenia. [id number] Dictating Physician: CHANTELLE MENDEZ MD Electronically Signed by: CHANTELLE MENDEZ MD Dic Date/Time: 09/28/22 1648 Sign date/Time: 09/28/22 1650 Procedure Note Chantelle Mendez MD - 06/29/2023 [facility] Diagnostic Imaging Department [address] [place], [place] [id number] Patient: CARMEN GRACE /Age/Sex: 1945 - 76 - F Unit#: [id number] Location/Status: SPDIMAM/REG CLI Mnemonic/Ordering Site: MAMDEXAAX/SPMAM Ordering Physician: ROSSI CARLOS MD [facility] Dexa Axial Skeleton - 09/27/22 - 1042 History: Low estrogen state due to menopause. Current smoker. Parent hip fracture. Chronic glucocorticoid use. Adult fracture (ankle, heel, wrist).On omeprazole. Comparison: 02/02/16 Findings: Bone densitometry is performed utilizing dual energy x-ray absorptiometry(DXA) in the [employer] unit. The lumbar spine and proximal femora [...] 55.9 percent Hip 44.4 percent. IMPRESSION: Osteopenia. [id number] Dictating Physician: CHANTELLE MENDEZ MD Electronically Signed by: CHANTELLE MENDEZ MD Dic Date/Time: 09/28/22 1648 Sign date/Time: 09/28/22 1650 Rossi Carlos MD IMG BI PROCEDURES Final Result * Colonoscopy (08/31/2017) Colonoscopy negative Anatomical Region Laterality Modality Other us Historical Provider HEALTH MAINTENANCE Final Result * [...] currently active code status orders. Care Teams Manager Of Planning Relationship Specialty Start Date End Date Rossi Carlos MD [address] [place] [address] PCP - General Internal Medicine 03/16/21
--- OUTSIDE RECORDS SUMMARY | 2025-05-06 20:24 | XMS_ITS ---
Author Organization [facility] Address [address] [place] [address] Phone Care Team Providers Care Opener Verifier [employer] Name Role Phone Zeke Carlos MD Primary Care Provider [phone] Active Problems Problem Noted Date Diagnosed Date [...] Overview (08/06/2023): S/p kyphoplasty 10/2018 follows with [facility] Essential hypertension 11/25/2018 Overview (08/06/2023): Last [...] We will also have her see a insurance office supervisor for a risk assessment given she has [...] lower lobe resection and radiation Follows with [facility]
--- OUTSIDE RECORDS SUMMARY | 2025-05-06 20:24 | XMS_ITS | Encounter Summary ---
Author Organization [facility] Address [address] [place] [address] Care Team Providers Care Insurance Case Manager Name Role Phone Zeke Carlos MD Primary Care Provider [phone] Encounter Details Date Type Department Care Team ([facility] st Contact Info) Description 04/15/2025 Results Follow-Up Vascular Surgery - [place] [address] [facility] [address] [place] [address] Peggy Cordoba PA [address] [facility] [address] [place] [address] Social History Tobacco Use Types Packs/Day Years [...] Info) Description 05/08/2025 9:45 AM EST Appointment [facility] CT Scan [address] [place] [address] 05/08/2025 11:30 AM EST Appointment [facility] CT Scan [address] [place] [phone] 05/11/2025 11:00 AM EST Office Visit Vascular Surgery - [place] [address] [place] [address] Ronen Vernon MD [address] [place] [phone] 05/14/2025 10:30 AM EST Office Visit Thoracic Surgery - [place] 299 [facility] [address] [place] [address] Raine Ballard PA [address] [place] [phone] 04/06/2026 10:00 AM EST Office Visit [facility] Hematology Oncology [address] [place] [phone] Kathy Rene, DO [address] [place] [address] documented as of this encounter Visit Diagnoses Not on filedocumented in this encounter Additional Health Concerns Assessment Noted Time PHQ-9 Depression Total Score: 8 09/10/19 25 7:31 PM EDT documented as of this encounter Care Teams Insurance Case Manager Relationship Specialty Start Date End Date Zeke Carlos MD [address] [place] [address] PCP - General Internal Medicine 03/16/21 documented as of this encounter
--- OUTSIDE RECORDS SUMMARY | 2025-05-06 20:25 | XMS_ITS | Encounter Summary ---
Author Organization [facility] Prior to 10/25/[address] [place] [address] Care Team Providers Care Metal Trades Instructor Name Role Phone Zeke Carlos MD Primary Care Provider [phone] Encounter Details Date Type Department Care Team Description 04/25/2021 E-Visit [facility] Oncology Services [address] [place] [address] Aki Peña MD Social History Tobacco Use [...] on filedocumented in this encounter Care Teams Metal Trades Instructor Relationship Specialty Start Date End Date Zeke Carlos MD PCP - General Internal Medicine 11/23/21 documented as of this encounter
--- OUTSIDE RECORDS SUMMARY | 2025-05-06 20:25 | XMS_ITS | Encounter Summary ---
Author Organization [facility] Address [address] [place] [address] Care Team Providers Care Casing Running Machine Tender Name Role Phone Zeke Carlos MD Primary Care Provider [phone] Encounter Details Date Type Department Care Team ([facility] st Contact Info) Description 03/09/2025 Results Follow-Up Adult Medicine [facility] [address] [place], [place] [phone] Marquis Cardona NP [address] [place], [place] Social History Tobacco Use Types Packs/Day [...] your loved ones. For example, child support officer or elderly care for an older adult? [...] Info) Description 05/08/2025 9:45 AM EST Appointment [facility] CT Scan [address] [place] [phone] 05/08/2025 11:30 AM EST Appointment [facility] CT Scan [address] [place] [phone] 05/11/2025 11:00 AM EST Office Visit Vascular Surgery [facility] [address] [place] [address] Ronen Vernon MD [address] [place] [address] 05/14/2025 10:30 AM EST Office Visit Thoracic Surgery - [place] 299 [facility] [address] [place] [address] Raine Ballard PA [address] [place] [address] 04/06/2026 10:00 AM EST Office Visit [facility] Hematology Oncology [address] [place] [phone] Kathy Rene DO [address] [place] [address] documented as of this encounter Visit Diagnoses Not on filedocumented in this encounter Additional Health Concerns Assessment Noted Time PHQ-9 Depression Total Score: 8 09/10/19 25 7:31 PM EDT documented as of this encounter Care Teams Casing Running Machine Tender Relationship Specialty Start Date End Date Zeke Carlos MD [address] [place] [address] PCP - General Internal Medicine 03/16/21 documented as of this encounter
--- OUTSIDE RECORDS SUMMARY | 2025-05-06 20:25 | XMS_ITS | Data Portability ---
Author Organization [place] [facility] Address [address] [address] Assessment Encounter Date Assessment Date Assessment LastModified [...] Recorded Time Paralysis of left vocal cord 721124063 Active Jaquelin méndez [facility] 16:06:51 Hoarse 18392253 Active Jaquelin méndez [facility] 16:07:17 Problem Notes None recorded. Procedures Surgical History Date Name Laterality Status Provider Name and Address Organization Details Recorded Time 03/17/20 24 Fiberoptic Laryngoscopy (Comprehensive) completed Jaquelin Pickard [place] - [facility] 03/17/2024 16:06:41 Appendectomy completed Obdulia Tate [facility] 03/17/2024 15:29:13 Cataract Surgery completed Obdulia Tate [place] [facility] 03/17/2024 15:29:18 Hysterectomy completed Obdulia Tate [place] [facility] 03/17/2024 15:29:25 lithotripsy completed Obdulia Tate [facility] 03/17/2024 15:29:33 lobectomy of lung completed Obdulia Tate [facility] 03/17/2024 15:29:51 Imaging Results None recorded. [...] Updated DateTime 06/18/2024 165.1 cm 22 kg/m2 30826.19 g Fady Cotto [facility] 06/18/2024 10:30:05 Social History None recorded. Functional Status None recorded. Mental Status None recorded. Family History Nothing Reported. Medical History Condition Response Anxiety Y Hyperlipidemia Y Cancer Y Hypertension Y Depression Y Asthma Y Gynecological HistoryNo gynecological history recorded. Obstetrics History GPAL:G 0 P 0 0 0 0 Past Encounters Encounter ID Performer Location Encounter Start Date Encounter Closed Date Diagnosis/Indication Diagnosis SNOMED-CT Code Diagnosis ICD10 Code Diagnosis IMO Codes Diagnosis Note [id number] FLOR CONDE MD [facility] [address] [phone] 03/17/2024 15:12:42 03/17/2024 17:01:30 Paralysis of left vocal cord 546431412 J38.01 History of primary malignant neoplasm of lung 832847011 Z85.118 Hoarse 93427198 R49.0 [id number] FLOR CONDE MD [facility] [address] [phone] 06/18/2024 10:13:53 06/18/2024 10:51:40 Paralysis of left vocal cord 433218066 J38.01 Patient appears to have a well [...] fold is paralyzed but compensate d. Hoarse 64163491 R49.0 History of primary malignant neoplasm of lung 389192295 Z85.118 follow with thoracic surgery Health Concerns Section Related Observation LastModified by Organization Detai ls LastModified Time None Recorded Concern Status LastModified by Organization Details LastModified Time None Recorded Advance Directives Directive None Recorded Payers Insurance Date Sequence Insurance Name Policy Number Policy Jenkins Covered Member ID Jenkins Member ID Guarantor Name 07/04/2024 1 [facility] [id number] 01 Carmen Grace [id number] Carmen Grace 07/04/2024 1 [facility] - MEDICARE ADVANTAGE PLAN (MEDICARE REPLACEMENT HMO) [id number] Carmen Grace [id number] Carmen Grace Notes Date Note Type Note [...] throat, hemoptysis, nor fevers. FLOR SHETH MD [address] [place] [address], [phone], [facility] - [facility] 03/17/2024 16:52:26 06/18/2024 text/html ROS as [...] at 06/04/2024 10:36 AM MARIO SHETH MD [address] [place] [address], [phone], [facility] - [facility] 06/18/2024 10:49:44 OBGyn Episode No OBEpisode recorded.
--- OUTSIDE RECORDS SUMMARY | 2025-05-06 20:26 | XMS_ITS | Encounter Summary ---
Author Organization [facility] Prior to 10/25/[address] [place] [address] Care Team Providers Care Dial Maker Name Role Phone Zeke Carlos MD Primary Care Provider [phone] Encounter Details Date Type Department Care Team Description 02/18/2024 Nurse Only [facility] Oncology Services [address] [place] [address] Smita Martinez RN Social History Tobacco Use [...] on filedocumented in this encounter Care Teams Dial Maker Relationship Specialty Start Date End Date Zeke Carlos MD PCP - General Internal Medicine 11/23/21 documented as of this encounter
--- OUTSIDE RECORDS SUMMARY | 2025-05-06 20:26 | XMS_ITS | Patient Health Record ---
[facility] Address [address] [place] [address] Care Team Providers Care Machine Printer Hose Name Role Phone Breanna VÁSQUEZ, Zeke Blake Primary Care Provider Unav ailable Black, Shiela Unavailable [phone] Allergies Allergen (clinical drug ingredient) Drug/Non Drug [...] Ulcer of toe of right foot (disorder) ([id number] [id number]) Skin ulcer of toe of right foot, limited to breakdown of skin (L97.511) Active confirmed Problem Ulcer of toe of left foot (disorder) ([id number] [id number]) Skin ulcer of toe of left foot, limited to breakdown of skin (L97.521) Active confirmed Nonapplicable Problem Skin ulcer of toe of right foot with fat layer exposed (L97.512) Active confirmed Problem Skin ulcer of toe of left foot with fat layer exposed (L97.522) Active confirmed Plan Of Treatment Pending Test Test Name Order Date [id number]-Pumkhbwl Plate 03/09/2023 29958- Debride <25 sq cm 03/26/2023 Insurance Providers Payer Name Payer Address Payer Phone Subscriber Number Group Number Insured Name Patient Relationship to Insured Coverage Start Date Coverage End Date [employer] [place] [employer] [address] [place] [address] [id number] Carmen Grace Self - patient is the insured Medical (General) History Medical History History ICD Code Anxiety Broken bones CAD (Cholesterol) Cancer Cataracts Depression High blood pressure Lung disease Reflux ( GERD) Vascular phlebitis (clots) Vascular grafts Joint implants/screws Surgical History Surgery Date(Month/Year) femoropopliteal bypass graft Gall bladder removal 2023 Lung Cancer Surgery 09/2023
--- OUTSIDE RECORDS SUMMARY | 2025-05-06 20:26 | XMS_ITS | Clinical Summary ---
Author Organization [facility] Prior to 10/25/[address] [place] [address] Care Team Providers Care Elementary Education Teacher Name Role Phone Zeke Carlos MD Primary Care Provider [phone] Allergies Active Allergy Reactions Criticality Noted Date [...] age to complete this topic Care Teams Elementary Education Teacher Relationship Specialty Start Date End Date Zeke Carlos MD PCP - General Internal Medicine 11/23/21
--- OUTSIDE RECORDS SUMMARY | 2025-05-06 20:26 | XMS_ITS | Clinical Summary ---
Author Organization [facility] Address [address] [place] [address] Phone Care Team Providers Care Buffing Wheel Inspector Name Role Phone JeradParminder Ursula Angie DO Primary Car e Provider [...] REPLACEMENT [employer] HMO REPLACEMENT [facility] MEDICARE HMO REPLACEMENT [employer] HMO REPLACEMENT Care Teams Buffing Wheel Inspector Relationship Specialty Start Date End Date Ursula Alcala DO [address] [place] [address] PCP - General Internal Medicine 12/24/18 Additional Source Comments The information contained in this document represents components of the legal health record. It is not the complete legal health record.[facility]
== END 2025-05-06 12:09 | disposition home or self-care (01) ==
LOC: HO.HMGCX 12:08
PROVIDERS: PCP Internal Medicine; Visit Provider Physician Assistant Medical
DX: R05.1 Acute cough (principal); R09.89 Other specified symptoms and signs involving the circulatory and respiratory systems; J06.9 Acute upper respiratory infection, unspecified
CPT/HCPCS: 71046; 87637; 94640; 99212

== ENCOUNTER 2025-05-06 12:08 | Outpatient (AMB) | payer MEDICARE, SELFPAY ==
[2025-05-06 12:34] VITALS: BP 122/50; PULSE 77; TEMP 36.8; O2SAT 95; BMI 26.0
--- NOTE | 2025-05-06 12:34 | AM.OFFWIN_ITS ---
Intake Vital Signs 05/06/25 12:34 Height 5 ft 5 in Weight 156 lb BMI 26.0 BP 122/50 L Blood Pressure Location Lt brachial Position Sitting Pulse 77 Pulse Source Pulse Oximeter Temp 98.3 F Temp Source Oral Pulse Oximetry (%) 95 Oxygen Delivery Method Room Air Intake Visit Reasons: EP Sore throat, congestion Intake Note: pt presents with worsening sore throat, coughing, hoarse voice- finished zpak yesterday Patient Tobacco Use Status: Former Tobacco user Allergies levofloxacin (From Levaquin) Allergy (Intermediate, Verified 05/06/25 12:39) diarrhea and vomiting codeine (CODEINE) Allergy (Unknown, Verified 05/06/25 12:39) STOMACH UPSET cephalexin (From Keflex) Adverse Reaction (Intermediate, Verified 05/06/25 12:39) Diarrhea and vomiting Do you need a note to return to daycare/school/sports/work: No HPI HPI Comments History of Present Illness Details History - The patient is a 79-year-old female pr esenting with a persistent cough that started about one week ago. - The cough is severe enough to induce v omiting. - She reports associated postnasal drip and producing some green sputum. - This is her second visit to the clinic for this issue. - She was seen here on May 01. - Previous treatments have included pred nisone, a Z-Jagdish which she completed yesterday, and codeine cough medicine, none of which have resolved her symptoms. - She previously received an albuterol t reatment at the clinic and has an albuterol inhaler at home. - Her past medical history is significan t for asthma. - She has known allergies to Keflex and Levaquin. 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 - She lives alone and reports no sick co ntacts. - She denies chest pain, abd pain, n/v/d . Physical Exam General: Cooperative, healthy appearing, comfortable and no acute distress Orientation/consciousness: Patient oriented x3 Limitations: No limitations Head: Normal to inspection Ears: Hearing grossly normal bilaterally, external ears normal and TM's normal bilaterally Nose: Normal external nose present, normal nares present, and no nasal discharge present. Face and sinus: Sinuses nontender to palpation. Mouth: Normal oral and palatal mucosa present and moist mucous membranes noted. Throat: Tonsils normal. Uvula is midline. Posterior oropharynx with erythema and no exudates. Eyes: Appearance normal, both eyes and all related structures Neck: Normal visual inspection, full ROM. No lymphadenopathy noted. Respiratory: Clear to auscultation bilaterally. Normal respiratory effort, able to speak in complete sentences. No respiratory distress, not tachypneic, no tripod positioning and no use of accessory muscles. Cardiovascular: Regular rate and rhythm. Normal S1 and S2. No m/r/g noted. Skin: No rashes or lesions noted Patient was informed and verbally consented to the use of an ambient scribe for clinic note documentation during this visit [facility] Social History Patient Tobacco Use Status: Former Tobacco user Review of Systems Const All systems reviewed & are unremarkable except as noted in HPI and below Physical Exam Vital Signs: Last Vital Signs Temp 98.3 F 05/06/25 12:34 Pulse 77 05/06/25 12:34 BP 122/50 L 05/06/25 12:34 Pulse Ox 95 05/06/25 12:34 Oxygen Delivery Method Room Air 05/06/25 12:34 BMI result Body Mass Index 26.0 Office Procedures Nebulizer Treatment Nebulizer Treatment 13285-[id number]/MDI RX initial, or Nebulizer Subsequent Treatment Office Meds ipratropium 0.5 mg-albuterol 3 mg (2.5 mg base)/3 mL nebulization soln Performing Provider: Cecy Joyce PA-C [place] [facility] [place] [facility] Administered by: Cecy Joyce PA-C on 05/06/25 13:16 Dose Route Admin Location Dispensed Lot Number Expiration Date [facility] Registered Public Health Nurse 3 mL inhalation 3 mL [id number] 12/25/26 58015-677-02 [employer] Assessment & Plan Assessment & Plan (1) Cough: Code(s): R05.9 - Cough, unspecified Qualifiers: Cough type: acute Qualified Code(s): R05.1 - Acute cough Plan Most likely URI vs CAP vs covid vs flu vs RSV nebulizer treatment in the office today plan - The patient presents with a persistent cough that has not responded to a course of azithromycin, prednisone, and codeine. - Given the lack of improvement, there is concern for a bacterial infection not susceptible to the previous antibiotic, with pneumonia being a consideration. - A chest x-ray will be ordered to rule out pneumonia. - An in-office albuterol nebulizer treatment will be administered for symptomatic relief, and a nasal swab will be performed. - A new prescription for Augmentin will be sent to the pharmacy to provide broader bacterial coverage. - The patient will also be prescribed another course of prednisone. Orders: Orders SARS-CoV2/FLU/RSV Today R09.89 - Other specified symptoms and signs involving the circulatory and respiratory systems XR chest 2V Today R05.9 - Cough, unspecified AMB Nebulizer Treatment Today J06.9 - Acute upper respiratory infection, unspecified Medications: New prednisone 40 mg (2 x 20 mg) PO DAILY 10 tabs 0RF 5 days amoxicillin-pot clavulanate 875-125 mg 1 tab PO Q12H 14 tabs 0RF Coding Level of Care Code Est Pt Level 4 (19728) Diagnoses Acute cough R05.1 Cough type: acute CPT Codes Nebulizer Treatment - Nebulizer Treatment, initial or subsequent: 16213- Nebulizer/MDI RX initial, or Nebulizer Subsequent Treatment ([id number])
== END 2025-05-06 13:47 | disposition home or self-care (01) ==
PROVIDERS: PCP Internal Medicine; Visit Provider Physician Assistant Medical
DX: J06.9 Acute upper respiratory infection, unspecified (principal); R05.1 Acute cough

== ENCOUNTER → 2025-05-06 13:42 | Outpatient (BNV) | payer MEDICARE, SELFPAY | PROVIDERS: PCP Internal Medicine; Visit Provider Radiology Diagnostic Radiology | DX: J18.9 Pneumonia, unspecified organism (principal) | CPT/HCPCS: 71046 ==

== ENCOUNTER 2025-05-15 11:17 | Outpatient (AMB) | payer MEDICARE, SELFPAY ==
--- OUTSIDE RECORDS SUMMARY | 2024-03-28 09:48 | XMS_ITS | Encounter Summary ---
Author Organization [facility] Address [address] [place] [address] Care Team Providers Care Air Defense Specialist Name Role Phone Zeke Carlos MD Primary Care Provider [phone] Encounter Details Date Type Department Care Team (Late st Contact Info) Description 03/28/2024 10:48 AM EDT Hospital Encounter TH [facility]OR[facility]NC[facility] ONLY Kishan Flynn MD [address] [place] [phone] Social History Tobacco Use Types Packs/Day Years [...] for your loved ones. For example, child neurologist or elderly care for an older adult? [...] Description 04/06/2026 10:00 AM EST Office Visit [facility] Hematology Oncology [address] [place] [address] Kathy Rene, DO [address] [place] [address] 04/13/2026 12:00 PM EST Ancillary Procedure [facility] Cardiology [facility] [address] [address] 04/14/2026 8:30 AM EST Ancillary Procedure [facility] 101 300 [facility] 101 [place] [address] 05/14/2026 10:30 AM EST Office Visit Vascular Surgery - [place] 300 [facility] [address] [place] [phone] Ronen Vernon MD [address] [place] [address] documented as of this encounter Procedures Procedure Name Priority Date/Time Associated Diagnosis Comments ABDOMEN FLAT AND ERECT Routine 03/28/2024 11:37 AM EDT documented in this encounter Results * ABDOMEN FLAT AND ERECT (03/28/2024 11:37 AM EDT) Anatomical Region Laterality Modality Radiographic Leatha ging 03/28/2024 10:5 4 AM EDT Narrative 03/28/2024 11:37 AM EDT [facility] Diagnostic Imaging Department [address] [place] [address] Patient: CYNDIBURKEPRINCESS PEREZ D.O.B./Age/Sex: 1945 - 78 - F Unit#: [id number] Location/Status: SPDIGEN/REG CLI Mnemonic/Ordering Site: [facility] Ordering [...] seen. IMPRESSION: Nonobstructive bowel gas pattern. Code 57136 Dictating Physician: YESI KULKARNI MD Electronically Signed by: YESI KULKARNI MD Dic Date/Time: 03/28/24 1136 Sign date/Time: 03/28/24 1137 Procedure Note Yesi Kulkarni MD - 03/29/2024 [facility] Diagnostic Imaging Department [address] [place] [address] Patient: PRINCESS EUCEDA Melissa North./Age/Sex: 1945 - 78 - F Unit#: [id number] Location/Status: SPDIGEN/REG CLI Mnemonic/Ordering Site: [facility] Ordering [...] seen. IMPRESSION: Nonobstructive bowel gas pattern. Code 40122 Dictating Physician: YESI KULKARNI MD Electronically Signed [...] documented as of this encounter Care Teams Air Defense Specialist Relationship Specialty Start Date End Date Zeke Carlos MD [address] [place] [address] PCP - General Internal Medicine 03/16/21 05/13/25 documented as of this encounter
--- OUTSIDE RECORDS SUMMARY | 2025-05-11 11:00 | XMS_ITS | Encounter Summary ---
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 Name Role Phone Zeke Carlos MD Primary Care Provider [phone] Reason for Referral * Imaging (Routine) - Pending Review Specialty Diagnoses / Procedures Referred By Contac t Referred To Contact Radiology Diagnoses PAD (peripheral artery disease) (CMS/HCC V24) Mesenteric ischemia (CMS/HCC V24) Superior mesenteric artery stenosis (CMS/HCC V24) Chronic mesenteric ischemia (CMS/HCC V24) Procedures Vascular US duplex aorta/IVC/iliac/grafts complete Ronen Vernon MD [address] [address] Phone: tel: fax: [facility] [address] [place] [address] Phone: tel: Referral ID Status Reason Start Date Expiration Date V isits Requested Visits Authorized [id number] Pending Review 05/11/2025 05/11/2026 1 1 * Imaging (Routine) - Pending Review Specialty Diagnoses / Procedures Referred By Contac t Referred To Contact Radiology Diagnoses PAD (peripheral artery disease) (CMS/HCC V24) Mesenteric ischemia (CMS/HCC V24) Superior mesenteric artery stenosis (CMS/HCC V24) Chronic mesenteric ischemia (CMS/HCC V24) Procedures Vascular US duplex lower extremity arteries bilateral with NICK Ronen Vernon MD [address] [place] [address] Phone: tel: fax: [facility] [place] [address] Phone: tel: Referral ID Status Reason Start Date Expiration Date V isits Requested Visits Authorized [id number] Pending Review 05/11/2025 05/11/2026 1 1 Reason for Visit * Reason Comments Peripheral Vascular Disease Encounter Details Date Type Department Care Team (Late st Contact Info) Description 05/11/2025 11:00 AM EST Office Visit Vascular Surgery - [place] [address] [place] [phone] Ronen Vernon MD [address] [place] [phone] PAD (peripheral artery disease) (CMS/HCC V24) (Primary Dx); Mesenteric ischemia (CMS/HCC V24); Superior mesenteric artery stenosis (CMS/HCC V24); Chronic mesenteric ischemia (CMS/HCC V24) Social History Tobacco Use Types Packs/Day Years [...] for your loved ones. For example, child and family counselor or elderly care for an older adult? [...] AM EDT documented as of this encounter Last Filed Vital Signs Vital Sign Reading Time Taken Comments Blood Pressure 130/80 05/11/2025 11:20 AM EST Pulse 76 05/11/2025 11:20 AM EST Temperature - - Respiratory Rate 16 05/11/2025 11:20 AM EST Oxygen Saturation - - Inhaled Oxygen Concentration - - Weight 70.8 kg (156 lb) 05/11/2025 11:20 AM EST Height 157.5 cm (5' 2 ) 05/11/2025 11:20 AM EST Body Mass Index 28.53 05/11/2025 11:20 AM EST documented in this encounter Progress Notes * Moises RoseSÁNCHEZ - 05/11/2025 11:00 AM EST Images from the original note were not included. JanetCarmen rico Procedures: Vascular US duplex lower extremity arteries bilateral with NICK Accession Number: [id number] Date of Study: 04/08/2025 Ordering Provider: Ronen Vernon MD Clinical Indications: peripheral vascular disease Reading Physicians Performing Staff Cardiology: Mikie Lal MD Tech: Nidia Nuñez Patient Information Patient Name Carmen Grace Legal Sex Female (79 y.o.) Diagnosis Priority: Routine Atherosclerosis [I70.90 (ICD-10-CM)]; PAD (peripheral artery disease) ([facility] V24) [I73.9 (ICD-10-CM)] PACS Images Show images for Vascular US duplex lower extremity arteries bilateral with NICK Performing Physician Performing Physician/Midlevel: None Interpretation Summary Show Result ComparisonRight le. Normal ankle-brachial index (1.01). 2. There is evidence of severe stenosis (50-99%) in the following arterial segments: Distal external iliac artery and common femoral artery Left le. Borderline ankle-brachial index at 0.96. 2. There is evidence of severe stenosis (50-99%) in the following arterial segments: Common femoralartery 3. There is evidence of moderate stenosis (20-49%) in the following arterial segments: Distal external iliac artery Result History Order Result History Report Procedure Details A tamayo scale, color and doppler analysis ultrasound was performed. During the study longitudinal views were obtained. Continuous wave doppler, pulsed wave doppler and pulsed volume recording (PVR) was performed. Overall the study quality was good. Lower Extremity Arterial Findings Right Lower Arterial Duplex The proximal external [...] The mid peroneal artery has biphasic flow. Iliac Artery Measurements PSV Rt EIA Prox 170 cm/s Rt EIA Dist 321 cm/s Lt EIA Prox 166 cm/s Lt EIA Dist 169 cm/s Right Lower Arterial Measurements PSV STOCK TURNER Prox 322 cm/s PFA 307 cm/s SFA Prox 127 cm/s SFA Mid 125 cm/s SFA Dist 157 cm/s Pop Prox 96 cm/s Pop Dist 89 cm/s HAZARDOUS WASTE TECHNICIAN Prox 61 cm/s HAZARDOUS WASTE TECHNICIAN Mid 48 cm/s HAZARDOUS WASTE TECHNICIAN Dist 21 cm/s QUEENIE Prox 112 cm/s QUEENIE Mid 73 cm/s QUEENIE Dist 57 cm/s Peroneal Mid 64 cm/s Left Lower Arterial Measurements PSV STOCK TURNER Prox 463 cm/s PFA 262 cm/s SFA Prox 133 cm/s SFA Mid 221 cm/s SFA Dist 147 cm/s Pop Prox 103 cm/s Pop Dist 72 cm/s HAZARDOUS WASTE TECHNICIAN Prox 59 cm/s HAZARDOUS WASTE TECHNICIAN Mid 59 cm/s HAZARDOUS WASTE TECHNICIAN Dist 49 cm/s QUEENIE Prox 72 cm/s QUEENIE Mid 91 cm/s QUEENIE Dist 51 cm/s Peroneal Mid 37 cm/s Segmental Pressure Measurements Right Left Brachial BP 161 mmHg 160 mmHg Post Tibial BP 156 mmHg 145 mmHg Dorsalis Pedis BP 163 mmHg 150 mmHg NICK 1.01 0.93 All Reviewers List GEMA Kate on 04/15/2025 10:58 Study Signed at [address] Angio Abdominal Aorta w Runoff ( (Order [id number]) Status: Final result PACS Images Show images for CT Angio Abdominal Aorta w Runoff Study Result Narrative & Impression PROCEDURE: CTA abdomen and pelvis with bilateral extremity runoff INDICATION: Peripheral arterial disease TECHNIQUE: Chest CTA with intravenous administration of 120cc ISOVUE 370. Multi planar reformats were created and interpreted. The examination was performed utilizing dose reduction techniques. 3-D postprocessing was performed on an independent workstation with direct supervision by the radiologist. Total DLP 1076 COMPARISON: 09/16/2024 FINDINGS: CTA: The descending thoracic aorta is patent where visualized. Severe stenosis at the origin of the celiac artery with preserved contrast opacification of the more distal branches, similar compared to prior. Patent SMA stent with preserved contrast opacification of the distal SMA branches. Severe stenosis at the right renal artery origin, unchanged. Dominant, more posterior left renal artery with moderate stenosis, similar compared to prior. Smaller, more anterior left renal artery is patent. Moderate narrowing of the aortic lumen at the level of the SMA is unchanged. The moderate stenosis of CHRIS origin is unchanged. No abdominal aortic aneurysm. Calcified plaque at the common iliac artery origins without high-grade stenosis. The right common iliac artery is patent. The right external iliac artery is patent. The left common iliac artery is patent. The left external iliac artery is patent. The internal iliac arteries are patent bilaterally. Calcified plaque at the right common femoral artery with mild stenosis. The right SFA and profunda are patent. Right popliteal artery is patent. There is occlusion of the right posterior tibial artery at the origin with patent 2 vessel runoff at the right ankle. Calcified plaque at the left common femoral artery with moderate stenosis. The left SFA and profunda are patent. The left popliteal artery is patent. The left calf arteries are patent with three-vessel runoff at the left ankle. No dissection or active arterial bleeding. Other: Atelectasis at the lung bases. Small hiatal hernia. Hepatic steatosis. No suspicious liver lesions. Cholecystectomy. No biliary duct dilatation. Pancreas, spleen, and adrenal glands are within normal limits. Kidneys are normal. No retroperitoneal or mesenteric lymphadenopathy. Hysterectomy. Bladder is normal. No adnexal mass or pelvic lymphadenopathy. Colonic diverticulosis. No bowel obstruction or wall thickening. Appendectomy. No ascites, fluid collection, or free intraperitoneal air. Superficial soft tissues are within normal limits. Degenerative changes seen throughout the lumbar spine with prior T12 vertebral augmentation and chronic fracture. No acute fracture. Degenerative changes are seen throughout the lower extremities. No mass or fluid collection. Distalright fibular fixation hardware is noted. 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 Patent proximal SMA stent. Unchanged severe stenosis of the right renal artery origin. Unchanged moderate stenosis at the origin of the dominant left renal artery with patent smaller accessory left renal artery. Unchanged moderate stenosis of the aorta at the level of the SMA. Unchanged moderate stenosis at the CHRIS origin. Occlusion of the right posterior tibial artery at the origin. Otherwise patent right lower extremity arteries with patent 2 vessel runoff at the right ankle. Patent left lower extremity arteries with patent three-vessel runoff at the left ankle. -------- FINAL REPORT -------- Dictated By: LENKA YODER Dictated Date: 05/08/2025 10:31 ET Assigned Physician: LENKA YODER Reviewed and Electronically Signed By: LENKA YODER Signed Date: 05/08/2025 10:59 ET Workstation ID: [id number] Transcribed By: Self Edit Transcribed Date: 05/08/2025 10:31 ET * Ronen Vernon MD - 05/11/2025 11:00 AM EST Images from the original note were not included. PATIENT: Carmen Grace ENCOUNTER: 05/11/2025 EMRN: [id number] : 1945 PCP: Zeke Carlos MD CHIEF COMPLAINT: Peripheral Vascular Disease HPI: This 79 y.o. female with past medical history of hypertension, hyperlipidemia, tobacco abuse, lung cancer, anxiety and depression presents for follow up of PAD and chronic mesenteric ischemia. Patient also has peripheral arterial occlusive disease. Patient is status post left lower extremityangiogram with balloon angioplasty of the left popliteal artery (4 x 40 mm inpact 018) on 07/03/2023.History is also significant for bilateral lower extremity angiogram and shockwave angioplasty of the right and left common iliac arteries (shockwave 5.5 x 60 mm) as well as balloon angioplasty of theright common iliac artery (6 x 40 mm chocolate balloon) on 12/26/2022 and left popliteal endarterectomy with bovine pericardial patch angioplasty on 01/25/2023 at [facility]. She has bilaterallower extremity arterial duplex which showed bilateral 50 to 99% STOCK TURNER stenosis. She was complaining of bilateral calf claudication at that time. CTA of the aorta with runoff was performed. See findings below. She denies any calf claudication at this time. She denies any ulcers or gangrene. Patient had chronic mesenteric ischemia. She had nausea and cramping in the postprandial.. She denies any fear of food. She has had 8 pound weight loss which was unintentional. She subsequently underwent mesenteric angiogram with SMA stent graft placement 6 mm x 19 mm VBX with post dilation by 7 mmx 20 mm [place] balloon on 06/24/2024. She says that ever since SMA stent placement was performed herabdominal symptoms have completely resolved. She has significant weight gain. She has updated CTA aorta with runoff which shows the mesenteric vessels. See findings below. Patient is on aspirin and and Plavix. She had an adverse reaction to statins. She claims to have quit smoking 5 years ago but intermittently has smoked cigarettes. Patient lives an active lifestyle and claims she can walk 2 flights of stairs without shortness of breath. PAST MEDICAL HISTORY: Patient Active Problem List Diagnosis Essential hypertension Hyperlipidemia Vitamin D deficiency Diverticulosis Lymphocytosis Colon adenoma Anxiety Depression Osteopenia Vitreous detachment Actinic keratoses Moderate persistent asthma Nodule of left lung Mild persistent asthma without complication Compression fracture of T12 vertebra (CMS/HCC V24, CMS/HCC V28) Tobacco use disorder Chest pain COPD (chronic obstructive pulmonary disease) (CMS/HCC V24, CMS/HCC V28) Hoarse Multiple pulmonary nodules History of lung cancer Superior mesenteric artery stenosis (CMS/HCC V24) Mesenteric ischemia (CMS/HCC V24) Primary cancer of left upper lobe of lung (CMS/HCC V24, CMS/HCC V28) Bradycardia PAST SURGICAL HISTORY: Past Surgical History: Procedure Laterality Date APPENDECTOMY PROCEDURE:APPENDECTOMY APPENDECTOMY PROCEDURE: HISTORICAL APPENDECTOMY; COMMENT: post op C difficile infection BREAST BIOPSY 40's PROCEDURE: BX BREAST; PERC NEEDLE CORE W/IMAG GUID; COMMENT: rt. needle bx.-benign CATARACT EXTRACTION PROCEDURE: HISTORICAL CATARACT REMOVAL; COMMENT: left COLONOSCOPY 10/26/2013 PROCEDURE: HISTORICAL COLONOSCOPY; COMMENT: repeat 3 years COLONOSCOPY 2008 PROCEDURE: HISTORICAL COLONOSCOPY; COMMENT: serrated adenoma EYE SURGERY Bilateral 12/2014 PROCEDURE: HISTORICAL EYE SURGERY; COMMENT: ptosis repair FOOT SURGERY PROCEDURE:FOOT SURGERY FOOT SURGERY PROCEDURE: HISTORICAL FOOT SURGERY HYSTERECTOMY PROCEDURE:HYSTERECTOMY HYSTERECTOMY PROCEDURE: HISTORICAL HYSTERECTOMY; COMMENT: cervical cancer; USO LUNG SURGERY PROCEDURE:LUNG SURGERY OTHER SURGICAL HISTORY Bilateral 12/26/2022 PROCEDURE: FL REVASCULARIZATION ILIAC ARTERY ANGIOP 1ST VSL OTHER SURGICAL HISTORY Bilateral 12/26/2022 PROCEDURE: FL REVASC INTRAVASC LITHOTRIPSY OTHER SURGICAL HISTORY Left 01/25/2023 PROCEDURE: FL TEAEC W/GRAFT POPLITEAL ARTERY OTHER SURGICAL HISTORY 07/03/2023 PROCEDURE: FL REVSC OPN/PRG FEM/POP W/ANGIOPLASTY UNI OTHER SURGICAL HISTORY 07/03/2023 PROCEDURE: FL INTRAVASCULAR US NONCORONARY RS&I INTIAL VESSEL OTHER SURGICAL HISTORY 07/03/2023 PROCEDURE: FL INTRAVASCULAR US NONCORONARY RS&I ADDL VESSEL OTHER SURGICAL HISTORY 07/03/2023 PROCEDURE: ULTRASOUND GUIDANCE FOR VASCULAR AC OTHER SURGICAL HISTORY Left 10/24/2023 PROCEDURE: FL THORACOSCOPY W/LOBECTOMY SINGLE LOBE; COMMENT: KENNY MEDICATIONS: Outpatient Medications Marked as Taking for the 05/11/25 encounter (Office Visit) with Ronen Vernon MD Medication Sig Dispense Refill albuterol HFA (PROAIR HFA ; PROVENTIL HFA ; VENTOLIN HFA) 90 mcg/actuation inhaler INHALE 2 PUFFS BY MOUTH EVERY 4 HOURS NEEDED FOR COUGH OR WHEEZING 9 g 2 amLODIPine (NORVASC) 10 mg tablet Take 1 tablet by mouth twice daily 180 tablet 1 aspirin 81 mg EC tablet Take 1 tablet (81 mg total) by mouth 1 (one) time each day. OTC benazepriL (LOTENSIN) 40 mg tablet Take 1 tablet by mouth once daily 90 tablet 1 buPROPion SR (WELLBUTRIN SR) 150 mg 12 hr tablet Take 1 tablet (150 mg total) by mouth 2 (two) times a day. 180 tablet 1 clopidogreL (PLAVIX) 75 mg tablet Take 1 tablet by mouth once daily 30 tablet 5 escitalopram (LEXAPRO) 20 mg tablet Take 1 tablet (20 mg total) by mouth 1 (one) time each day. 30 each 14 ezetimibe (ZETIA) 10 mg tablet Take 1 tablet (10 mg total) by mouth 1 (one) time each day. 90 each 1 LORazepam (ATIVAN) 0.5 mg tablet Take 1 tablet (0.5 mg total) by mouth every 6 (six) hours if needed. Take 1 tablet (0.5 mg total) by mouth every 6 (six) hours as needed Prescribed by Dr. Breanna velez (SINGULAIR) 10 mg tablet Take 1 tablet (10 mg total) by mouth at bedtime. at bedtime. 90 tablet 1 omeprazole (PriLOSEC) [address] capsule Take 1 capsule by mouth once daily 90 capsule 0 Spiriva with HandiHaler 18 mcg per inhalation capsule PLACE 1 CAPSULE INTO THE INHALER AND INHALE THE CONTENTS BY MOUTH INTO THE LUNGS THROUGH THE SPIRIVA DEVICE ONE TIME EVERY MORNING 30 capsule 4 ALLERGIES: Allergies Allergen Reactions Codeine Nausea And Vomiting, Dizziness, GI intolerance and Unknown Dhlawkj-Uci-Gdx Reductase Inhibitors Muscles aches Cephalexin Diarrhea, Nausea Only, GI intolerance and Unknown Epinephrine Levofloxacin Diarrhea, Nausea Only, GI intolerance and Unknown SOCIAL HISTORY: Social History Tobacco Use Smoking status: Former Current packs/day: 0.00 Average packs/day: 0.3 packs/day Types: Cigarettes Quit date: 01/08/2018 Years since quittin.3 Smokeless tobacco: Never Substance Use Topics Alcohol use: Yes Alcohol/week: 3.0 standard drinks of alcohol Types: 3 Standard drinks or equivalent per week Comment: some times wine with dinner half a glass Drug use: No FAMILY HISTORY: Family History Problem Relation Name Age of Onset No Known Problems Mother Hypertension Father No Known Problems Brother Cancer Maternal Grandmother Coronary artery disease Father sepsis Other (Other: stomach cancer) Maternal Grandmother ROS: GENERAL: No malaise, significant weight loss or fever NECK: No lumps, goiter, pain or significant neck swelling RESPIRATORY: No cough, wheezing or shortness of breath CARDIAC: No chest pain or palpitations GI: No abdominal discomfort MUSCULOSKELETAL: SEE HPI SKIN: No lesions, rash or itching NEURO: No persistent headache, syncope, seizures, weakness or numbness VASCULAR: SEE HPI PHYSICAL EXAM: Vitals: 05/11/25 1120 BP: 130/80 Pulse: 76 Resp: 16 Weight: 70.8 kg (156 lb) Height: 1.575 m (62 ) General: Alert and oriented x 3, no acute distress, well-nourished HEENT: Normocephalic atraumatic Neck: No JVD Chest: Respiratory effort normal Cardiac: Regular rate rhythm Abdomen: Soft, nontender, nondistended, no widened aortic pulse Extremities: -Right upper extremity: 2+ radial artery pulses palpable. -Left upper extremity: 2+ radial artery pulses palpable. -Right lower extremity: No groin complications. 2+ femoral artery pulse palpable. No groin complications. No palpable popliteal artery pulse. 2+ DP and PT palpable. No ulcers or gangrene. No edema. -Left lower extremity: 2+ femoral artery pulse palpable. No palpable popliteal artery pulse. 2+ DP and PT. No ulcers or gangrene. No edema. Integumentary: No wounds Neuro: Grossly intact DIAGNOSTIC TESTING: CT Angio Abdominal Aorta w Runoff ( (Order [id number]) Status: Final result PACS Images Show images for CT Angio Abdominal Aorta w Runoff Study Result Narrative & Impression PROCEDURE: CTA abdomen and pelvis with bilateral extremity runoff INDICATION: Peripheral arterial disease TECHNIQUE: Chest CTA with intravenous administration of 120cc ISOVUE 370. Multi planar reformats were created and interpreted. The examination was performed utilizing dose reduction techniques. 3-D postprocessing was performed on an independent workstation with direct supervision by the radiologist. Total DLP 1076 COMPARISON: 09/16/2024 FINDINGS: CTA: The descending thoracic aorta is patent where visualized. Severe stenosis at the origin of the celiac artery with preserved contrast opacification of the more distal branches, similar compared to prior. Patent SMA stent with preserved contrast opacification of the distal SMA branches. Severe stenosis at the right renal artery origin, unchanged. Dominant, more posterior left renal artery with moderate stenosis, similar compared to prior. Smaller, more anterior left renal artery is patent. Moderate narrowing of the aortic lumen at the level of the SMA is unchanged. The moderate stenosis of CHRIS origin is unchanged. No abdominal aortic aneurysm. Calcified plaque at the common iliac artery origins without high-grade stenosis. The right common iliac artery is patent. The right external iliac artery is patent. The left common iliac artery is patent. The left external iliac artery is patent. The internal iliac arteries are patent bilaterally. Calcified plaque at the right common femoral artery with mild stenosis. The right SFA and profunda are patent. Right popliteal artery is patent. There is occlusion of the right posterior tibial artery at the origin with patent 2 vessel runoff at the right ankle. Calcified plaque at the left common femoral artery with moderate stenosis. The left SFA and profunda are patent. The left popliteal artery is patent. The left calf arteries are patent with three-vessel runoff at the left ankle. No dissection or active arterial bleeding. Other: Atelectasis at the lung bases. Small hiatal hernia. Hepatic steatosis. No suspicious liver lesions. Cholecystectomy. No biliary duct dilatation. Pancreas, spleen, and adrenal glands are within normal limits. Kidneys are normal. No retroperitoneal or mesenteric lymphadenopathy. Hysterectomy. Bladder is normal. No adnexal mass or pelvic lymphadenopathy. Colonic diverticulosis. No bowel obstruction or wall thickening. Appendectomy. No ascites, fluid collection, or free intraperitoneal air. Superficial soft tissues are within normal limits. Degenerative changes seen throughout the lumbar spine with prior T12 vertebral augmentation and chronic fracture. No acute fracture. Degenerative changes are seen throughout the lower extremities. No mass or fluid collection. Distalright fibular fixation hardware is noted. 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 Patent proximal SMA stent. Unchanged severe stenosis of the right renal artery origin. Unchanged moderate stenosis at the origin of the dominant left renal artery with patent smaller accessory left renal artery. Unchanged moderate stenosis of the aorta at the level of the SMA. Unchanged moderate stenosis at the CHRIS origin. Occlusion of the right posterior tibial artery at the origin. Otherwise patent right lower extremity arteries with patent 2 vessel runoff at the right ankle. Patent left lower extremity arteries with patent three-vessel runoff at the left ankle. -------- FINAL REPORT -------- Dictated By: LENKA YODER Dictated Date: 05/08/2025 10:31 ET Assigned Physician: LENKA YODER Reviewed and Electronically Signed By: LENKA YODER Signed Date: 05/08/2025 10:59 ET Workstation ID: [id number] Transcribed By: Self Edit Transcribed Date: 05/08/2025 10:31 ET Carmen Grace Melissa Procedures: Vascular US duplex lower extremity arteries bilateral with NICK Accession Number: [id number] Date of Study: 04/08/2025 Ordering Provider: Ronen Vernon MD Clinical Indications: peripheral vascular disease Reading Physicians Performing Staff Cardiology: Mikie Lal MD Tech: Nidia Nuñez Patient Information Patient Name Carmen Grace Legal Sex Female (79 y.o.) Diagnosis Priority: Routine Atherosclerosis [I70.90 (ICD-10-CM)]; PAD (peripheral artery disease) ([facility] V24) [I73.9 (ICD-10-CM)] PACS Images Show images for Vascular US duplex lower extremity arteries bilateral with NICK Performing Physician Performing Physician/Midlevel: None Interpretation Summary Show Result ComparisonRight le. Normal ankle-brachial index (1.01). 2. There is evidence of severe stenosis (50-99%) in the following arterial segments: Distal external iliac artery and common femoral artery Left le. Borderline ankle-brachial index at 0.96. 2. There is evidence of severe stenosis (50-99%) in the following arterial segments: Common femoralartery 3. There is evidence of moderate stenosis (20-49%) in the following arterial segments: Distal external iliac artery Result History Order Result History Report Procedure Details A tamayo scale, color and doppler analysis ultrasound was performed. During the study longitudinal views were obtained. Continuous wave doppler, pulsed wave doppler and pulsed volume recording (PVR) was performed. Overall the study quality was good. Lower Extremity Arterial Findings Right Lower Arterial Duplex The proximal external [...] The mid peroneal artery has biphasic flow. Iliac Artery Measurements PSV Rt EIA Prox 170 cm/s Rt EIA Dist 321 cm/s Lt EIA Prox 166 cm/s Lt EIA Dist 169 cm/s Right Lower Arterial Measurements PSV STOCK TURNER Prox 322 cm/s PFA 307 cm/s SFA Prox 127 cm/s SFA Mid 125 cm/s SFA Dist 157 cm/s Pop Prox 96 cm/s Pop Dist 89 cm/s HAZARDOUS WASTE TECHNICIAN Prox 61 cm/s HAZARDOUS WASTE TECHNICIAN Mid 48 cm/s HAZARDOUS WASTE TECHNICIAN Dist 21 cm/s QUEENIE Prox 112 cm/s QUEENIE Mid 73 cm/s QUEENIE Dist 57 cm/s Peroneal Mid 64 cm/s Left Lower Arterial Measurements PSV STOCK TURNER Prox 463 cm/s PFA 262 cm/s SFA Prox 133 cm/s SFA Mid 221 cm/s SFA Dist 147 cm/s Pop Prox 103 cm/s Pop Dist 72 cm/s HAZARDOUS WASTE TECHNICIAN Prox 59 cm/s HAZARDOUS WASTE TECHNICIAN Mid 59 cm/s HAZARDOUS WASTE TECHNICIAN Dist 49 cm/s QUEENIE Prox 72 cm/s QUEENIE Mid 91 cm/s QUEENIE Dist 51 cm/s Peroneal Mid 37 cm/s Segmental Pressure Measurements Right Left Brachial BP 161 mmHg 160 mmHg Post Tibial BP 156 mmHg 145 mmHg Dorsalis Pedis BP 163 mmHg 150 mmHg NICK 1.01 0.93 All Reviewers List GEMA Kate on 04/15/2025 10:58 Study Signed at 1044 EST Carmen Grace Procedures: CT Angio Abdomen Pelvis wo and/or w Contrast Accession Number: [id number] Date of Study: 09/16/24 Ordering Provider: Ronen Vernon MD Clinical Indications: mesenteric artery stenosis, mesenteric artery stenosis Reading Physicians Performing Staff Radiology: Moises Landers MD Tech: Steffanie Elam Central Melt Specialist: Sharlene Gil Patient Information Patient Name Carmen Grace Legal Sex Female (78 y.o.) PACS Images Show images for CT Angio Abdomen Pelvis wo and/or w Contrast Diagnosis Priority: Routine Mesenteric ischemia (CMS/HCC V24) [K55.9 (ICD-10-CM)] Performing Physician Performing Physician/Midlevel: None Interpretation Summary PROCEDURE: CT angiogram of the abdomen and pelvis. TECHNIQUE: Contrast enhanced CT angiogram of the abdomen and pelvis. Multiplanar reformats were created. IV contrast dose: 90 mL ISOVUE-370. HISTORY: mesenteric artery stenosis COMPARISON: 06/06/2024. Dose length product: 1130 mGy-cm. FINDINGS: Vasculature: Extensive calcified plaque throughout the abdominal aorta. Bulky plaque along the posterior aortic lumen at the level of the SMA origin narrows the lumen by approximately 50%. No aortic aneurysm or dissection. Severe origin stenosis of the celiac trunk. New stent in the proximal SMA. The stent is patent without evidence of in-stent stenosis. Small amount of plaque in the mid SMA without associated significant stenosis. Moderate-severe origin stenosis of the CHRIS. Moderate origin stenosis of the right renal artery. There is a small accessory artery supplying theright upper pole. Mild origin stenosis of the left renal artery. Bulky calcified plaque in the right common iliac artery with a mild focal stenosis. Moderate originstenosis of the right internal iliac artery. No right external iliac stenosis. Calcified plaque in the common femoral artery and proximal femoral artery without associated stenosis. Calcified plaque in the left common and internal iliac artery without significant stenosis. Widely patent external iliac artery. Hard and soft plaque in the common femoral artery with prominent luminal irregularity without significant luminal stenosis. Mild luminal stenosis of the profunda branch and proximal left femoral artery. Lung bases: Small amount of scarring in the inferior lingula. Small thin-walled cyst in the right lower lobe. Cardiac: Mild coronary calcification. Liver: There are a few small low-attenuation lesions, probably cysts but too small for definitive characterization. Irregular 5 mm enhancing lesion in the posterior right hepatic lobe near the dome which is seen on arterial phase images and persists on portal venous phase images, probably a flash filling hemangioma. This lesion is also seen on the portal venous phase images on the previous study,where it exhibits a small focus of peripheral nodular enhancement, which supports this diagnosis. An 8 mm enhancing lesion in the central right lobe and ill-defined enhancement along the inferior right lobe on arterial phase images likely represent perfusion anomalies; these do not persist on portal venous phase images. Biliary: Cholecystectomy. No ductal dilatation. Pancreas: Normal. Spleen: Normal. Adrenal glands: Normal. Kidneys: Normal. Normal appearance of the ureters. Retroperitoneum: No mass or adenopathy. Bowel/mesentery: No obstruction or adenopathy. No mass or ascites. Distal predominant colonic diverticulosis. Appendectomy. Abdominal wall: Small fat-containing paraumbilical hernia. Pelvic nodes: No adenopathy. Pelvic organs: Hysterectomy. Bones: Degenerative changes of the spine, hips, SI joints, and pubic symphysis. T12 compression deformity with vertebroplasty cement. Remote fracture deformities of several lower left ribs. IMPRESSION: 1. Patent SMA stent. 2. Severe stenosis of the celiac origin. Moderate-severe origin stenosis of the CHRIS. 3. Moderate origin stenosis of the right renal artery. -------- FINAL REPORT -------- Dictated By: Moises Landers Dictated Date: 09/16/2024 18:01 ET Assigned Physician: Moises Landers Reviewed and Electronically Signed By: Moises Landers Signed Date: 09/17/2024 09:48 ET Workstation ID: [id number] Transcribed By: Self Edit Transcribed Date: 09/16/2024 18:01 ET Carmen Torres [facility] US duplex pseudoaneurysm check groin right Order# [id number] Reading physician: Piper Robles MD Ordering provider: GEMA Kate Study date: 06/26/24 Patient Information Patient Name Carmen Grace Legal Sex Female (78 y.o.) Reason for Exam Priority: Routine right groin pain, firm to palpation, s/p angiogram on 06/24; right groin pain, firm to palpation, s/p angiogram on 06/24 Dx: Right groin pain [R10.31 (ICD-10-CM)]; PAD (peripheral artery disease) ([facility]) [I73.9 (ICD-10-CM)]; Chronic mesenteric ischemia ([facility]) [K55.1 (ICD-10-CM)] PACS Images Show images for Vascular US duplex pseudoaneurysm check groin right Procedure Box Bender/Clinician: Yvonne Whatley Supporting Staff: Performing Physician/Midlevel: None Interpretation Summary INDICATION: right groin pain, firm to palpation, s/p angiogram on 06/24 TECHNIQUE: Limited ultrasound evaluation of the symptomatic femoral region using two-dimensional, pulsed Doppler and color Doppler imaging was performed to evaluate for possible pseudoaneurysm, hematoma or other significant finding. COMPARISON: None. FINDINGS: Ultrasound imaging of the common femoral artery and vein as well as the proximal superficial femoral artery and vein demonstrates normal flow on Doppler examination without evidence of pseudoaneurysm. A collateral branch is noted off the right common femoral artery. No measured hematoma. IMPRESSION: No visible pseudoaneurysm.. -------- FINAL REPORT -------- Dictated By: Piper Robles Dictated Date: 06/26/2024 15:31 ET Assigned Physician: Piper Robles Reviewed and Electronically Signed By: Piper Robles Signed Date: 06/26/2024 15:33 ET Workstation ID: [id number] Transcribed By: Self Edit Transcribed Date: 06/26/2024 15:[address] Abdomen Pelvis w Contrast ( (Order [id number]) Status: Final result Narrative & Impression EXAMINATION: CT CHEST WITHOUT CONTRAST CT ABDOMEN and PELVIS WITH CONTRAST DATE: 05/13/2024 CLINICAL INFORMATION: Laryngitis. Acute cough Acute abdomen pain. Nausea, vomiting. Epigastric fullness COMPARISON: Portions of a previous chest CT 12/14/2023 TECHNIQUE: Multidetector CT. Examination of the chest without IV contrast. Examination of the abdomen and pelvis with IV contrast. Reformatting in the coronal and sagittal planes. DLP: 808 mGy-cm Dose optimization was performed including the use of low-dose iterative reconstruction technique with automatic exposure control based on patient size. Type of contrast: ISOVUE 370 Volume of IV contrast: 90 mL Volume of contrast discarded: 0 mL FINDINGS: LUNG: Line or secretions in the trachea. There is some distortion of the central airways from previous surgery. There is an irregular nodule in the most superior aspect of the remaining left lung 05/13/2024-0.5 cm 12/14/2023-0.5 cm Unchanged micronodule posterior peripheral aspect remaining left lung () Unchanged groundglass nodule anterior aspect of remaining left lung 05/13/2024-1.2 cm () 12/14/2023-1.2 cm This was present and is likely unchanged when compared to 09/03/2023 Metallic suture in the periphery of the left lower lung. There is solid tissue adjacent to some metallic suture in the right upper lung 05/13/2024-2.2 cm () 12/14/2023-2.4 cm 09/03/2023-2.4 cm Poorly defined peripheral opacity lateral right upper lung is unchanged (3/72). Unchanged fissural thickening in the right lower lung. Unchanged nodule in the central aspect of the remaining right lower lung (3/94) Unchanged fissural thickening periphery of right midlung (3/111). No new measurable mass or nodule MEDIASTINUM: There is some decrease in the amount of amorphous tissue at the upper mediastinal reflection on the left. Small hiatal hernia. CARDIAC: Prominence of the pericardial recesses. The left ventricle may be mildly dilated as is theleft atrium. The right-sided chambers are not dilated. There is some calcification in the region ofthe aortic valve. CORONARY CALCIFICATION: Moderate coronary calcification VASCULAR: There is no thoracic aortic aneurysm. The main pulmonary artery is normal caliber PLEURAL: No significant pleural fluid. No pneumothorax. The pleural disease in the posterior left costophrenic sulcus region has improved AXILLA/CHEST WALL: There are no enlarged axillary lymph nodes. No chest wall mass demonstrated ABDOMEN/PELVIS LIVER: No suspicious abnormality in the liver. A tiny round low attenuating lesion in the dome of the left lobe is too small to characterize. A tiny low attenuating lesion in the ventral aspect of the left lobe is also too small to characterize. BILIARY TRACT: The gallbladder is likely surgically absent. No biliary dilation demonstrated. SPLEEN: No suspicious abnormality PANCREAS: No suspicious abnormality ADRENAL GLANDS: Within normal limits KIDNEYS: The kidneys are normal in size, shape, and attenuation. No hydronephrosis, hydroureter, orcalculi. There is mild prominence of the renal pelvis without dilation of the infundibula or ureters. GASTROINTESTINAL TRACT: There is luminal narrowing with wall thickening and diverticula in the sigmoid colon. No definite localized pericolonic stranding. There is a large amount of fecal residue in the colon. The colon interposes between the abdominal wall and the liver which is a normal variant. There is metallic suture in the expected region of the appendix. Contrast has traversed the small bowel. As described there is a small hiatal hernia. URINARY BLADDER: No suspicious abnormality. PELVIC VISCERA: The uterus is not demonstrated and is likely surgically absent. ABDOMINAL WALL: Suspect some postoperative changes. No bowel hernia. LYMPHOVASCULAR STRUCTURES AND FLUID: There is severe narrowing of the celiac axis. There is diseasein the proximal SMA. There is marked atherosclerosis of the aorta. There is likely an accessory left renal artery. There is plaque in the common iliac arteries. There is extensive plaque in the common femoral arteries on each side. There are no enlarged lymph nodes. There is no significant free intraperitoneal fluid. MUSCULOSKELETAL: Opaque cement at T12 with some volume loss. There is acute kyphosis at this level. IMPRESSION: Postoperative changes in the chest. There are stable areas of scarring and underlying nodular densities. No new disease in the chest. There is thickening of the sigmoid colon without specific evidence of acute diverticulitis or abscess. Severe narrowing of the celiac axis and at least moderate if not marked disease in the proximal SMA. Nonacute mesenteric ischemia could be present. -------- FINAL REPORT -------- Dictated By: David Gasca Dictated Date: 05/13/2024 13:28 ET Assigned Physician: David Gasca Reviewed and Electronically Signed By: David Gasca Signed Date: 05/13/2024 13:59 ET Workstation ID: [id number] Transcribed By: Self Edit Transcribed Date: 05/13/2024 13:28 Diagnostic Imaging Department [address] [place] [address] Patient: CARMEN GRACE /Age/Sex: 1945 - 77 - F Unit#: [id number] Location/Status: SPER/REG ER Mnemonic/Ordering Site: [facility] Ordering Physician: ORQUIDEA BRIDGES PA-C CT Ang Abd and Pel W WO or W - 08/08/231805 Report Status:Signed CT angiography of the abdomen and pelvis with IV contrast. COMPARISON: None. FINDINGS: Hkoqqugp-mi-pakrhz atherosclerotic plaque present along the visualized lower thoracic and abdominal aorta. There is approximately 50 percent focal stenosis along the proximal abdominal aorta (series 2, image 148). High-grade approximately 90 percent short-segment stenosis of the origin of the celiac trunk extending for approximately 0.9 cm. Visualized proximal aspect of the branches of the celiac trunk appear patent. Atherosclerotic plaque present at the origin of the SMA causing less than 50 percent stenosis. Visualized portions of the SMA appear patent. Calcified plaque present at the origin of the right renal artery causes approximately 50 percent stenosis. Atherosclerotic plaque present at the origin of the left renal artery causes less than 50 percent stenosis. Approximately 50 percent stenosis of the origin of the CHRIS. Visualized portions of the CHRIS appear patent. Calcified plaque present along the common and internal iliac arteries with bilaterally without significant stenosis. Lower Chest: Likely hyperinflation of the partially visualized lung bases. Abdomen: No focal hepatic lesion. Normal gallbladder. Normal spleen. Normal pancreas. Normal adrenal glands. Symmetric renal enhancement. No hydronephrosis. Appendix is not seen. Mild colonic stool burden. Mild distal colonic diverticulosis without evidence of diverticulitis. No bowel obstruction. No mesenteric or retroperitoneal lymphadenopathy. Pelvis: Urinary bladder is unremarkable given degree of distention. No adnexal mass. Musculoskeletal: Moderate to advanced degenerative changes of the bilateral hips, hvbte-yspawsa-zaxb-left. No acute fracture. IMPRESSION: 1. No evidence of mesenteric ischemia. No evidence of bowel obstruction. No evidence of colitis. 2. Short-segment approximately 50 percent stenosis of the proximal abdominal aorta. 3. High-grade approximately 90 percent short-segment stenosis of the origin of the celiac trunk extending for 0.9 cm. Remaining visualized branches of the celiac trunk appear patent. 4. Distal colonic diverticulosis without evidence of diverticulitis. This document has been electronically signed by: Agustin Guo MD on 08/08/2023 18:42:40 Dictating Physician: AGUSTIN GUO MD Electronically Signed by: AGUSTIN GUO MD Dic Date/Time: 08/08/231841 Sign date/Time: 08/08/23 [id number] [facility] Diagnostic Imaging Department [address] [place] [address] Patient: CARMEN GRACE /Age/Sex: 1945 - 77 - F Unit#: [id number] Location/Status: [facility]REG CLI Mnemonic[facility] Ordering Physician: LONNIE SAMS PA-C Leg Arterial Study [place] - 06/14/23 - Report Status:Signed INDICATION: Peripheral arterial disease TECHNIQUE: Arterial duplex imaging obtained of both lower extremities. COMPARISON: None Right leg: Common femoral artery: Calcified plaque along the common femoral artery with elevated velocity up to 265 cm/s with biphasic waveform. Superficial femoral artery: Mildly elevated velocity in the mid vessel up to 146 cm/s with velocitydistally measuring 95 cm/s with biphasic waveform. Popliteal artery: Velocity measures 98 cm/s distally with biphasic waveform. Posterior tibial artery: Mildly decreased velocity distally measuring 32 cm/s with biphasic waveform. Anterior tibial artery: Widely elevated velocity proximally up to 132 cm/s with biphasic waveform. Left leg: Common femoral artery: Calcified plaque with velocity up to 296 cm/s with biphasic waveform. Superficial femoral artery: Elevated velocity in the mid vessel up to 250 cm/s measuring 89 cm/s distally with biphasic waveform. Popliteal artery: Elevated velocity in the proximal popliteal artery along focal calcified plaque up to 189 cm/s with biphasic waveform. Velocity distally measures 109 cm/s. Posterior tibial artery: Normal velocities and biphasic waveform. Anterior tibial artery: Elevated velocity proximally up to 141 cm/s with biphasic waveform with velocity distally measuring 67 cm/s. IMPRESSION: Right leg: Moderate common femoral artery stenosis. Left leg: Moderate common and superficial femoral artery stenoses. High-grade above-knee popliteal artery stenosis suspected. Dictating Physician: EL SHAH MD Electronically Signed by: EL SHAH MD Dic Date/Time: 06/14/23 1007 Sign date/Time: 06/14/23 [id number] Bilateral lower extremity arterial duplex with ABIs, 12/06/22: Right: NICK 0.83. TBI 0.46. Biphasic waveforms seen throughout the arterial tree. Moderate 20-49% stenosis of right STOCK TURNER. Three-vessel runoff in the right calf. Left: NICK 0.47. TBI 0.32. Biphasic waveforms present from the external iliac artery to the superficial femoral artery. Monophasic waveforms present after the popliteal artery with three-vessel runoffdistally. Moderate 20-49% left STOCK TURNER stenosis. Severe 50-99% left SFA stenosis. Three-vessel runoff in the left calf. I independently reviewed the studies along with the images. ASSESSMENT: 1. PAD (peripheral artery disease) (CMS/HCC V24) 2. Mesenteric ischemia (CMS/HCC V24) 3. Superior mesenteric artery stenosis (CMS/HCC V24) 4. Chronic mesenteric ischemia (CMS/HCC V24) PLAN: 79 y.o. female with PAD status post multiple interventions she is currently asymptomatic with no significant stenosis seen on CTA aorta with runoff. She has bilateral palpable pedal pulses. No intervention is warranted at this time. Patient to continue maximal medical management. Patient to follow-up in 1 year with repeat bilateral extremity arterial duplex.. Patient to follow-up sooner should she develop symptoms of limb ischemia within her legs. She has resolved chronic mesenteric ischemia status post SMA VBX stent placement on 06/24/2024. 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 No further intervention warranted at this time. Patient to follow-up in 1 year with aortic duplex. Due to calcifications stent may not be adequately evaluated however we will try to see if a less invasive mode of evaluation can be accurate. Patient to follow-up sooner should she have recurrent abdominal symptoms. If symptoms are severe she is to seek immediate medical attention in the emergency department. Patient's daughter was present for the visit. All findings explained to the patient and her daughter to their satisfaction. We discussed the natural pathophysiology of PAD and chronic mesenteric ischemia. I spent 41 minutesin an encounter with this patient, including time spent with patient, chart review, reviewing diagnostic studies, and documentation. documented in this encounter Plan of Treatment Upcoming Encounters Date Type Department Care Team (Late st Contact Info) Description 04/06/2026 10:00 AM EST Office Visit [facility] Hematology Oncology [address] [place] [address] Kathy Rene, DO [address] [place] [address] 04/13/2026 12:00 PM EST Ancillary Procedure [facility] Cardiology [facility] [address] [facility] [address] [place] [address] 04/14/2026 8:30 AM EST Ancillary Procedure [facility] Cardiology [facility] [address] [facility] [address] [place] [address] 05/14/2026 10:30 AM EST Office Visit Vascular Surgery - [place] [address] [facility] [address] [place] [address] Ronen Vernon MD [address] [place] [phone] Scheduled Orders Name Type Priority Associated Diagnoses Orde r Schedule Vascular US duplex lower extremity arteries bilateral with NICK Vascular Ultrasound Routine PAD (peripheral artery disease) (CMS/HCC V24) Mesenteric ischemia (CMS/HCC V24) Superior mesenteric artery stenosis (CMS/HCC V24) Chronic mesenteric ischemia (CMS/HCC V24) Expected: 04/11/2026, Expires: 05/11/2027 Vascular US duplex aorta/IVC/iliac/gra fts complete Vascular Ultrasound Routine PAD (peripheral artery disease) (CMS/HCC V24) Mesenteric ischemia (CMS/HCC V24) Superior mesenteric artery stenosis (CMS/HCC V24) Chronic mesenteric ischemia (CMS/HCC V24) Expected: 04/11/2026, Expires: 05/11/2027 documented as of this encounter Visit Diagnoses Diagnosis PAD (peripheral artery disease) ([facility] V24)- Primary Unspecified peripheral vascular disease Mesenteric ischemia ([facility]/HCC V24) Superior mesenteric artery stenosis (CMS/HCC V24) Stricture of artery Chronic mesenteric ischemia (CMS/HCC V24) Chronic vascular insufficiency of intestine documented in this encounter Additional Health Concerns Assessment Noted Time PHQ-9 Depression Total Score: 8 09/10/19 25 7:31 PM EDT documented as of this encounter Care Teams Needle Punch Machine Operator Helper Relationship Specialty Start Date End Date Zeke Carlos MD [address] [place] [address] PCP - General Internal Medicine 03/16/21 05/13/25 documented as of this encounter
--- OUTSIDE RECORDS SUMMARY | 2025-05-14 10:30 | XMS_ITS | Encounter Summary ---
Author Organization [facility] Address [address] [place] [address] Care Team Providers Care Brine Tank Separator Operator Name Role Phone Adriel Shelley MD Primary Care Provider [phone] Reason for Visit * Reason Comments Follow-up Chest CT Encounter Details Date Type Department Care Team ([facility] st Contact Info) Description 05/14/2025 10:30 AM EST Office Visit Thoracic Surgery - [address] [place] [phone] Raine Ballard PA [address] [place] [phone] Social History Tobacco Use Types [...] care for your loved ones. For example, childcare teacher or elderly care for an older adult? [...] Description 04/06/2026 10:00 AM EST Office Visit [facility] Hematology Oncology [address] [place] [address] Kathy Rene, [address] [place] [address] 04/13/2026 12:00 PM EST Ancillary Procedure [facility] Cardiology Associates - [address] [place] [address] 04/14/2026 8:30 AM EST Ancillary Procedure [facility] Cardiology Associates - [facility] [address] [facility] [address] [place] [address] 05/14/2026 10:30 AM EST Office Visit Vascular Surgery - [place] [address] [place] [address] Ronen Vernon MD [address] [place] [phone] documented as of this encounter Visit Diagnoses Not on filedocumented in this encounter Additional Health Concerns Assessment Noted Time PHQ-9 Depression Total Score: 8 09/10/19 25 7:31 PM EDT documented as of this encounter Care Teams Brine Tank Separator Operator Relationship Specialty Start Date End Date Adriel Shelley MD [address] [place] [address] [address] [place] [address] PCP - General Internal Medicine 05/14/25 documented as of this encounter
--- NOTE | 2025-05-15 11:24 | A.OFFPC_ITS ---
Vital Signs 05/15/25 11:31 Height 5 ft 2.75 in Weight 150 lb 8 oz BMI 26.9 BP 136/52 L Pulse 69 Pulse Source Pulse Oximeter Temp 97.7 F Temp Source Temporal Artery Scan Pulse Oximetry (%) 97 Oxygen Delivery Method Room Air Intake Visit Reasons: New Patient Agricultural Specialist Required: No Accompanied by: Self / Same As Patient Allergies levofloxacin (From Levaquin) Allergy (Intermediate, Verified 05/15/25 11:24) diarrhea and vomiting codeine (CODEINE) Allergy (Unknown, Verified 05/15/25 11:24) STOMACH UPSET cephalexin (From Keflex) Adverse Reaction (Intermediate, Verified 05/15/25 11:24) Diarrhea and vomiting Medication List - Last Reconciled 05/15/25 by Adriel Shelley MD albuterol sulfate 90 mcg/actuation 1 inh inhalation Q4-6H PRN amlodipine 10 mg PO BID aspirin (Adult Aspirin Regimen) 81 mg PO DAILY benazepril 40 mg PO DAILY bupropion HCl SR 150 mg PO BID clopidogrel 75 mg PO DAILY escitalopram oxalate 20 mg PO DAILY ezetimibe 10 mg PO DAILY montelukast 10 mg PO DAILY omeprazole 20 mg PO DAILY tiotropium bromide (Spiriva with HandiHaler) 1 cap inhalation DAILY Tobacco use date assessed: 05/15/25 Fall risk assessment: 1 Fall in past year Last assessed Fall Risk: 05/15/25 Dental Screening Dental Screen Date: 05/15/25 Did you have a dental visit in the last 12 months?: Yes Did you have a dental problem in the last 6 months where you did not have access to dental care?: No Was dental information given to patient?: Patient has dentist HPI HPI Comments History of Present Illness Details History of Present Illness The patient is a 79 year old female presenting to [facility] primary care after leaving her previous provider, Dr. Willis at [place], due to dissatisfaction with the clinic's accessibility since it was taken over by [facility]. The patient has a history of lung cancer, first found in 2019, and has had adenocarcinoma in 2019 and a right upper lobe malignancy in 2021. She is currently monitored for this by Dr. Renee Douglas, a thoracic surgeon. She has a history of COPD and asthma, for which she is prescribed multiple inhalers, but does not see a bark scaler. Her COPD has been under control and has not required hospitalization. Her other chronic conditions include hypertension, peripheral artery disease (for which she has had stents in her leg and abdomen), hyperlipidemia, anxiety, depression, and acid reflux. Her blood pressure is reportedly well-controlled on her current medication regimen. Her anxiety was previously managed by Dr. Willis. She was recently seen at a walk-in clinic for a horrible cough and was diagnosed with right upper lobe pneumonia via chest x-ray after being seen by a third provider. She was treated with prednisone, Tessalon, and amoxicillin, and reports the cough is now pretty much gone, though her voice remains hoarse. Regarding health maintenance, she is up to date on her COVID and flu shots. She had a mammogram late last year and is due for another this year. She also had a negative colonoscopy and endoscopy in 2023 for stomach issues, with no repeat colonoscopy currently recommended. She has had a bone density scan, which was done around the same time as a mammogram. The patient is a former smoker who quit in 2018; previously, she smoked about a pack every three to four days for a long time. She drinks a small glass of wine with dinner every night and has been advised to cut down. She denies any use of marijuana, heroin, or cocaine. Medical History: - History of lung cancer (adenocarcinoma in 2018, right upper lobe cancer in 2021), status post monitoring - Chronic obstructive pulmonary disease (COPD) and asthma - Hypertension - Peripheral artery disease, status post stenting - Anxiety and depression - Hypercholesterolemia - Gastroesophageal reflux disease - Recent right upper lobe pneumonia - History of broken ankle and arm - History of cataracts - Allergies to levofloxacin, codeine, an d Keflex Surgical History: - Peripheral artery stenting in the left thigh and abdomen - Cholecystectomy - Hysterectomy - Repair of broken ankle - Appendectomy - Breast biopsy - Cataract surgery - Foot surgery - Repair of broken arm Medications: - Albuterol for COPD/asthma - Amlodipine 10 mg twice a day for hyper tension - Aspirin 81 mg for cardiovascular healt h - Benazepril 40 mg for hypertension - Bupropion 150 mg twice a day for anxie ty/depression - Plavix (clopidogrel) for peripheral ar joellen stenting - Citalopram 20 mg once a day for anxiet y/depression - Ezetimibe 10 mg for hypercholesterolem ia - Montelukast 10 mg for COPD - Omeprazole 20 mg for acid reflux - Tiotropium (Spiriva) for COPD Diagnostic Results: - Chest X-ray: Showed right upper lobe p neumonia recently. - Colonoscopy (2023): Negative. - Endoscopy (2023): Negative. Social History - Tobacco Use: Former smoker, quit in . - Alcohol Use: Drinks a small glass of w ine with dinner daily; advised to reduce intake. - Illicit Drug Use: Denies use of mariju tanner, heroin, and cocaine. [facility] Medical History (Updated 05/15/25 @ 12:03 by Adriel Shelley MD) Annual physical exam Alcohol abuse History of lung cancer GERD without esophagitis Anxiety and depression Peripheral artery disease COPD (chronic obstructive pulmonary disease) Hypertension, essential, benign Social History Housing: House Patient Tobacco Use Status: Former Tobacco user e-Cigarette/Vaping Use: Never Used service: No Current occupational status: retired Cognitive needs: No Hearing needs: No Vision needs: Yes (Rx glasses) Questionnaire PHQ-9 Over the last 2 weeks, how often have you been bothered by any of the following problems? 1. Little interest or pleasure in doing things: not at all 2. Feeling down, depressed, or hopeless: several days 3. Trouble falling or staying asleep, or sleeping too much: not at all 4. Feeling tired or having little energy: several days 5. Poor appetite or overeating: not at all 6. Feeling bad about yourself - or that you are a failure or have let yourself or your family down: not at all 7. Trouble concentrating on things, such as reading the newspaper or watching television: not at all 8. Moving or speaking so slowly that other people could have noticed. Or the opp osite - being so fidgety or restless that you have been moving around a lot more than usual: not at all 9. Thoughts that you would be better off or of hurting yourself in some way: not at all Total score: 2 Depression Screening Interpretation: Negative Depression Screening Done: Yes 51674 - PHQ-9 Billing: Yes Source: Developed by Drs. Naun Tolbert, Irena Moreno, Otto Prado and colleagues, with an educational ricardo from [employer]. Thrive Questionnaire Date Thrive assessed: 05/15/25 I am a: Patient What is your living situation today?: I have a steady place to live Within the past 12 months, did the food you bought not last and you didn't have the money to get more?: Sometimes True Within the past 12 months, did you worry whether your food would run out before you got money to buy more?: Never true Do you have trouble paying for medicines?: No Do you have trouble getting transportation to medical appointments?: No Do you have trouble paying your heating and electricity bill?: No Do you have trouble taking care of your child, family member or friend?: No Do you have trouble with day-to-day activities such as bathing, preparing meals, shopping, managing finances, etc.?: No Are you currently unemployed and looking for a job?: No Are you interested in more education?: No THRIVE Score: 1 AUDIT C Alcohol Use Questionnaire (AUDIT-C) 1. How often do you have a drink containing alcohol?: 4 or more times a week 2. How many drinks containing alcohol do you have on a typical day when you are drinking?: 1 or 2 3. How often do you have six or more drinks on one occasion?: Never Total Score: 4 Score Reviewed/Action Taken: Yes ERIN-7 AMB Questionnaire ERIN-7 Date ERIN - 7 assessed: 05/15/25 Feeling nervous, anxious, or on edge: 1 = Several days Not being able to stop or control worryin = Several days Worrying too much about different things: 1 = Several days Trouble relaxin = Not at all Being so restless that it is hard to sit still: 0 = Not at all Becoming easily annoyed or irritable: 0 = Not at all Feeling afraid as if something awful might happen: 0 = Not at all Total ERIN-7 score (0-4 normal; 5-9 mild; 10-14 moderate; 15-21 severe): 3 Source: Developed by Drs. Naun Tolbert, Irena Moreno, Otto Prado and colleagues, with an educational ricardo from [employer] [facility] [employer]. ERIN-7 Assessment Billing ERIN-7 Assessment Tool: ERIN-7 Assessment 78993 Review of Systems Narrative Review of Systems - General: Reports no current complaints. - HEENT: Reports persistent hoarseness from a recent cough. - Cardiovascular: Denies chest pain. - Respiratory: Denies shortness of breath. - Gastrointestinal: Reports normal urination and bowel movements. - Constitutional: Denies nausea and vomiting. - Neurological: Denies headaches and vision changes. All systems reviewed & are unremarkable except as reviewed in HPI and above Physical exam (Primary Care) Vital Signs: Last Vital Signs Temp 97.7 F 05/15/25 11:31 Pulse 69 05/15/25 11:31 BP 136/52 L 05/15/25 11:31 Pulse Ox 97 05/15/25 11:31 Oxygen Delivery Method Room Air 05/15/25 11:31 BMI result Body Mass Index 26.9 Tobacco/Smoking Status: Tobacco use Status Tobacco use date assessed 05/15/25 05/15/25 11:33 Patient Tobacco Use Status Former Tobacco user 05/15/25 11:25 e-Cigarette/Vaping Use Never Used 05/15/25 11:33 PHQ-9: PHQ-9 Score PHQ-9: Total score 2 05/15/25 11:57 Depression Screening Interpretation: Negative Thrive Assessment: Date of Thrive Assessment Date Thrive assessed 05/15/25 05/15/25 11:41 Narrative Physical Exam General: +Alert and oriented, Well nourished, No acute distress. Eye: Pupils are equal, round and reactive to light, Intact accommodation, Extraocular movements are intact, Normal conjunctiva, Vision unchanged. HENT: Normocephalic, Atraumatic, Tympanic membranes are clear, Normal hearing, Oral mucosa is moist, No pharyngeal erythema, Ear canals patent. Respiratory: Lungs CTA bilaterally, No wheeze, Respirations are non-labored. Cardiovascular: Regular rate, Regular rhythm, S1 auscultated, S2 auscultated, No murmur, Good pulses equal in all extremities, Normal peripheral perfusion, No edema. Gastrointestinal: Soft, Non-tender, Non-distended, Normal bowel sounds, No organomegaly. Musculoskeletal: Normal range of motion, Normal strength, No tenderness, No swelling, No deformity, Normal gait. Integumentary: Warm, Dry, [place], Intact. Neurologic: Alert, Oriented, Normal sensory, Normal motor function, No focal defects, Cranial Nerves II-XII are grossly intact, Normal deep tendon reflexes. Psychiatric: Cooperative, Appropriate mood & affect, Normal judgment. Coding Level of Care Code New Pt Level 4 (49865) Diagnoses Hypertension, essential, benign I10 Chronic obstructive pulmonary disease, unspecified COPD type J44.9 COPD type: unspecified COPD Peripheral artery disease I73.9 Anxiety and depression F41.9; F32.A GERD without esophagitis K21.9 History of lung cancer Z85.118 Alcohol abuse F10.10 Annual physical exam Z00.00 Additional Codes ERIN-7 Assessment Billing - ERIN-7 Assessment Tool: ERIN-7 Assessment 25748 ([id number]) PHQ-9 - 04252 - PHQ-9 Billing: Yes ([id number]) Assessment & Plan Assessment & Plan (1) Hypertension, essential, benign: Comment: Pressure is well-controlled on amlodipine 10 mg b.i.d. and benazepril 40 Advised continued monitoring of blood pressures at home Code(s): I10 - Essential (primary) hypertension Category: Medical (2) COPD (chronic obstructive pulmonary disease): Comment: Currently being managed on albuterol inhaler p.r.n. and Spiriva daily. Also using montelukast daily Patient does not follow with a bark scaler however does follow with the thoracic surgeon. Unclear why she has not been established with a bark scaler Never been admitted for exacerbations Code(s): J44.9 - Chronic obstructive pulmonary disease, unspecified Category: Medical Qualifiers: COPD type: unspecified COPD Qualified Code(s): J44.9 - Chronic obstruc tive pulmonary disease, unspecified (3) Peripheral artery disease: Comment: Underwent stenting at [facility] and currently on Plavix and aspirin Code(s): I73.9 - Peripheral vascular disease, unspecified Category: Medical (4) Anxiety and depression: Comment: PHQ 9 score at 3 with GED score of 3 and currently on Wellbutrin 150 b.i.d. and escitalopram 10 Reports feeling well Code(s): F41.9 - Anxiety disorder, unspecified; F32.A - Depression, unspecified Category: Medical (5) GERD without esophagitis: Comment: Symptoms well controlled on omeprazole 20 mg daily Code(s): K21.9 - Gastro-esophageal reflux disease without esophagitis Category: Medical (6) History of lung cancer: Comment: - The patient is being monitored by her thoracic surgeon, Dr. Douglas, and will continue follow-up with him. Code(s): Z85.118 - Personal history of other malignant neoplasm of bronchus and lung Category: Medical (7) Alcohol abuse: Comment: - The patient reports daily alcohol consumption. - She was counseled to reduce her alcohol intake. Code(s): F10.10 - Alcohol abuse, uncomplicated Category: Social Hx (8) Annual physical exam: Comment: - The patient is a 79-year-old female with a complex medical history establishing care. - A complete physical exam was performed. - Plan includes ordering comprehensive baseline blood work, including CBC, electrolytes, lipids, glucose, and screening for hepatitis, HIV, and syphilis. - The patient is due for her annual mammogram and an order will be placed. - She will be asked to confirm the date of her last scan. - She is up-to-date with her COVID/flu vaccinations and colonoscopy. Code(s): Z00.00 - Encounter for general adult medical examination without abnormal findings Category: Medical Plan: Health Maintenance: - Vaccinations: The patient reports being up to date on her COVID and flu shots. - Breast Cancer Screening: The patient had a mammogram late last year (March or April) and is due for her annual screening. - Colorectal Cancer Screening: A colonoscopy performed in 2023 was negative and no repeat is currently recommended. - Osteoporosis Screening: The patient has had a bone density scan in the past. - Lung Cancer Screening: The patient is actively monitored by a thoracic surgeon for her history of lung cancer. - Substance Use: The patient was counseled to reduce her daily alcohol intake. Patient was informed and verbally consented to the use of an ambient scribe for clinic note documentation during this visit. Vital signs reviewed. Comprehensive history, review of systems, and physical exam completed. Medications, allergies, and problem list reviewed and updated. Counseling provided on nutrition, regular exercise, sleep hygiene, and moderation of alcohol use. Discussed age-appropriate screenings (mammogram, colonoscopy, Pap, bone density) and immunizations (flu, COVID, shingles, Tdap). Screened for depression, fall risk, and home safety; no current concerns. Discussed stress management, dental and vision care, and importance of ongoing preventive follow-up. Routine labs ordered for metabolic and lipid screening. Patient educated on healthy lifestyle and agrees with the plan. Plan I have reviewed the patient's extensive medical history as a part of this new patient visit. I explained the plan to order a comprehensive panel of baseline bloodwork to screen for any underlying issues and check cholesterol and glucose levels. We discussed that her current medications will be continued, and I advised that her pharmacy can send us requests for refills. I counseled her on the need to reduce her daily alcohol consumption. Orders: Orders Comprehensive Met. Panel Today Z00.00 - Encounter for general adult medical examination without abnormal findings Hemoglobin A1c Today Z00.00 - Encounter for general adult medical examination without abnormal findings Hepatitis A,B,C Profile Today Z00.00 - Encounter for general adult medical examination without abnormal findings Syphilis Screen Today Z00.00 - Encounter for general adult medical examination without abnormal findings Vitamin D 25-OH Total Today Z00.00 - Encounter for general adult medical examination without abnormal findings MM tomosynthesis screening BI Today Z12.31 - Encounter for screening mammogram for malignant neoplasm of breast Complete Blood Count Auto Diff Today Z00.00 - Encounter for general adult medical examination without abnormal findings HIV Ab/Ag Today Z00.00 - Encounter for general adult medical examination without abnormal findings Lipid Panel Today Z00.00 - Encounter for general adult medical examination without abnormal findings Microalbumin, Random (w Creat) Today Z00.00 - Encounter for general adult medical examination without abnormal findings TSH reflex Free T4 Today Z00.00 - Encounter for general adult medical examination without abnormal findings Patient Instructions: - Please go to the lab in the hospital to have your blood drawn. - Continue taking your current medications as prescribed. - You can have your pharmacy send refill requests to our office when you need them. - Our office will call you to schedule your mammogram. - We advise you to cut down on the amount of alcohol you drink. - We will call you if any of your lab results are abnormal. - Please schedule your next appointment at the front office associate for 4 months from now.
[2025-05-15 11:31] VITALS: BP 136/52; PULSE 69; TEMP 36.5; O2SAT 97; BMI 26.9
--- OUTSIDE RECORDS SUMMARY | 2025-05-15 13:18 | XMS_ITS | Encounter Summary ---
Author Organization [facility] Address [address] [place] [address] Care Team Providers Care Computer Systems Design Analyst Name Role Phone Adriel Shelley MD Primary Care Provider [phone] Encounter Details Date Type Department Care Team ([facility] Contact Info) Description 04/15/2025 Results Follow-Up Vascular Surgery - [place] [address] [place] [phone] Peggy Cordoba PA [address] [facility] [address] [place] [address] Social History Tobacco Use Types Packs/Day Years [...] care for your loved ones. For example, maternal child nurse or elderly care for an older adult? [...] Description 04/06/2026 10:00 AM EST Office Visit [facility] Hematology Oncology [address] [place] [address] Kathy Reneie, DO [address] [place] [address] 04/13/2026 12:00 PM EST Ancillary Procedure [facility] Cardiology [facility] - [facility] [address] [facility] [address] [place] [address] 04/14/2026 8:30 AM EST Ancillary Procedure [facility] [address] [facility] [address] [place] [address] 05/14/2026 10:30 AM EST Office Visit Vascular Surgery - [place] [address] [facility] [address] [place] [address] Ronen Vernon MD [address] [place] [phone] documented as of this encounter Visit Diagnoses Not on filedocumented in this encounter Additional Health Concerns Assessment Noted Time PHQ-9 Depression Total Score: 8 09/10/19 25 7:31 PM EDT documented as of this encounter Care Teams Computer Systems Design Analyst Relationship Specialty Start Date End Date Adriel Shelley MD [address] [place] [address] [address] [place] [id number] PCP - General Internal Medicine 05/14/25 documented as of this encounter
--- OUTSIDE RECORDS SUMMARY | 2025-05-15 13:18 | XMS_ITS | Encounter Summary ---
Author Organization [facility] Address [address] [place] [address] Care Team Providers Care Quantitative Manager Name Role Phone Zeke Carlos MD Primary Care Provider [phone] Encounter Details Date Type Department Care Team ([facility] Contact Info) Description 03/09/2025 Results Follow-Up Adult Medicine [facility] [place] [address] [place], [place] [phone] Marquis Cardona NP [address] [place], [place] Social History Tobacco Use Types Packs/Day [...] care for your loved ones. For example, attendant child activity or elderly care for an older adult? [...] Description 04/06/2026 10:00 AM EST Office Visit [facility] Hematology Oncology [address] [place] [phone] Kathy Rene, [address] [place] [address] 04/13/2026 12:00 PM EST Ancillary Procedure [facility] Cardiology [facility] - [facility] [address] [facility] [address] [place] [address] 04/14/2026 8:30 AM EST Ancillary Procedure [facility] Cardiology [facility] - [facility] [address] [facility] [address] [place] [address] 05/14/2026 10:30 AM EST Office Visit Vascular Surgery - [place] [address] [facility] [address] [place] [address] Ronen Vernon MD [address] [place] [phone] documented as of this encounter Visit Diagnoses Not on filedocumented in this encounter Additional Health Concerns Assessment Noted Time PHQ-9 Depression Total Score: 8 09/10/19 25 7:31 PM EDT documented as of this encounter Care Teams Quantitative Manager Relationship Specialty Start Date End Date Zeke Carlos MD [address] [place] [id number] PCP - General Internal Medicine 03/16/21 05/13/25 documented as of this encounter
--- OUTSIDE RECORDS SUMMARY | 2025-05-15 13:18 | XMS_ITS | Encounter Summary ---
Author Organization [facility] Prior to 10/25/[address] [place] [phone] Care Team Providers Care Senior Clinical Study Manager Name Role Phone Zeke Carlos MD Primary Care Provider [phone] Encounter Details Date Type Department Care Team Description 04/25/2021 E-Visit [facility] Oncology Services [address] [place] [address] Aki Peña MD Social History Tobacco Use [...] on filedocumented in this encounter Care Teams Senior Clinical Study Manager Relationship Specialty Start Date End Date Zeke Carlos MD PCP - General Internal Medicine 11/23/21 documented as of this encounter
--- OUTSIDE RECORDS SUMMARY | 2025-05-15 13:18 | XMS_ITS | Data Portability ---
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 Procedures Surgical History Date Name Laterality Status Provider Name and Address Organization Details Recorded Time 03/17/20 24 Fiberoptic Laryngoscopy (Comprehensive) completed Jaquelin Pickard [place] - [facility] 03/17/2024 16:06:41 Appendectomy completed Obdulia Tate [facility] 03/17/2024 15:29:13 Cataract Surgery completed Obdulia Tate [facility] 03/17/2024 15:29:18 Hysterectomy completed Obdulia Tate [facility] 03/17/2024 15:29:25 lithotripsy completed Obdulia Tate [facility] 03/17/2024 15:29:33 lobectomy of lung completed Obdulia Tate [facility] 03/17/2024 15:29:51 Imaging Results None recorded. Procedure [...] Updated DateTime 06/18/2024 165.1 cm 22 kg/m2 79906.19 g Fady Cotto [facility] 06/18/2024 10:30:05 Social History None recorded. Functional [...] ICD10 Code Diagnosis IMO Codes Diagnosis Note [id number] FLOR CONDE MD [facility] [address] [address] 03/17/2024 15:12:42 03/17/2024 17:01:30 Paralysis of left vocal cord 702208108 J38.01 History of primary malignant neoplasm of lung 192366494 Z85.118 Hoarse 19381054 R49.0 15179 FLOR CONDE MD [facility] [address] [address] 06/18/2024 10:13:53 06/18/2024 10:51:40 Paralysis of left vocal cord 717127180 J38.01 Patient appears to have a well [...] fold is paralyzed but compensate d. Hoarse 64566681 R49.0 History of primary malignant neoplasm of lung 148125980 Z85.118 follow with thoracic surgery Health Concerns Section Related Observation LastModified by Organization Detai ls LastModified Time None Recorded Concern Status LastModified by Organization Details LastModified Time None Recorded Advance Directives Directive None Recorded Payers Insurance Date Sequence Insurance Name Policy Number Policy Jenkins Covered Member ID Jenkins Member ID Guarantor Name 07/04/2024 1 [facility] [id number] 01 Carmen Grace [id number] Carmen Grace 07/04/2024 1 [facility] - MEDICARE ADVANTAGE PLAN (MEDICARE REPLACEMENT HMO) [id number] 01 Carmen Grace [id number] Carmen Grace Notes Date Note Type Note [...] throat, hemoptysis, nor fevers. FLOR SHETH MD [address] [place] [address], [phone], [facility] 03/17/2024 16:52:26 06/18/2024 text/html ROS as noted [...] at 06/04/2024 10:36 AM MARIO SHETH MD [address] [place] [address], [phone], [facility] - [facility] 06/18/2024 10:49:44 OBGyn Episode No OBEpisode recorded.
--- OUTSIDE RECORDS SUMMARY | 2025-05-15 13:18 | XMS_ITS | Data Portability ---
Author Organization [facility], [id number] Address [address] [place] [address] Assessment No assessment recorded. Plan of Treatment [...] ICD10 Code Diagnosis IMO Codes Diagnosis Note [id number] [address] [place] [address] 02/23/2015 18:35:56 02/23/2015 20:03:19 [id number] [address] [place] [address] 06/05/2017 12:16:53 06/05/2017 13:08:15 [id number] [address] [place] [address] 07/15/2018 19:22:28 07/15/2018 20:29:19 [id number] [address] [place] [address] 12/03/2018 19:26:40 12/03/2018 20:00:04 [id number] [address] [place] [address] 10/23/2020 13:41:04 10/23/2020 14:57:33 [id number] [address] [place] [address] 12/10/2018 19:42:18 12/10/2018 19:55:53 [id number] [address] [place] [address] 10/01/2016 13:08:27 10/01/2016 13:34:25 [id number] [address] [place] [address] 06/03/2018 11:29:30 06/03/2018 11:59:16 [id number] [address] [place] [address] 12/21/2016 12:07:00 12/21/2016 12:48:29 [id number] [address] [place] [address] 10/10/2020 10:26:24 10/10/2020 11:58:18 [id number] [address] [place] [address] 11/03/2016 10:21:59 11/03/2016 11:11:27 Health Concerns Section Related Observation LastModified by Organization Detai ls LastModified Time None Recorded Concern Status LastModified by Organization Details LastModified Time None Recorded Advance Directives Directive None Recorded Payers Insurance Date Sequence Insurance Name Policy Number Policy Jenkins Covered Member ID Jenkins Member ID Guarantor Name 06/30/2022 1 [facility] [id number] 01 Carmen Grace [id number] Carmen Grace OBGyn Episode No OBEpisode recorded.
--- OUTSIDE RECORDS SUMMARY | 2025-05-15 13:18 | XMS_ITS | Encounter Summary ---
Author Organization [facility] Address [address] [place] [address] Care Team Providers Care [employer] Tech Name Role Phone Adriel Shelley MD Primary Care Provider [phone] Encounter Details Date Type Department Care Team ([facility] st Contact Info) Description 05/08/2025 Results Follow-Up Vascular Surgery - [place] [address] [facility] [address] [place] [address] Celi Reyez PA [address] [place] [phone] Social History Tobacco Use Types Packs/Day Years [...] care for your loved ones. 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 [...] Description 04/06/2026 10:00 AM EST Office Visit [facility] Hematology Oncology [address] [place] [address] Kathy Reneie, DO [address] [place] [address] 04/13/2026 12:00 PM EST Ancillary Procedure [facility] Cardiology [facility] - [facility] [address] [facility] [address] [place] [address] 04/14/2026 8:30 AM EST Ancillary Procedure [facility] Cardiology [facility] - [facility] [address] [facility] [address] [place] [address] 05/14/2026 10:30 AM EST Office Visit Vascular Surgery - [place] [address] [facility] [address] [place] [address] Ronen Vernon MD [address] [place] [phone] documented as of this encounter Visit Diagnoses Not on filedocumented in this encounter Additional Health Concerns Assessment Noted Time PHQ-9 Depression Total Score: 8 09/10/19 25 7:31 PM EDT documented as of this encounter Care Teams [employer] Tech Relationship Specialty Start Date End Date Adriel Shelley MD [address] [place] [address] [address] [place] [address] PCP - General Internal Medicine 05/14/25 documented as of this encounter
--- OUTSIDE RECORDS SUMMARY | 2025-05-15 13:18 | XMS_ITS ---
Author Organization [facility] Address [address] [place] [address] Phone Care Team Providers Care Cardiothoracic Physiotherapist Name Role Phone Adriel Shelley MD Primary Care Provider [phone] Active Problems Problem Noted Date Diagnosed Date [...] Overview (08/06/2023): S/p kyphoplasty 10/2018 follows with [facility] Essential hypertension 11/25/2018 Overview (08/06/2023): [...] general and how their size, shape, and change management specialist time determine her level of suspicion for [...] general and how their size, shape, and change management specialist time factor level of suspicion for malignancy. [...] We will also have her see a cable technician for a risk assessment given she has [...] lower lobe resection and radiation Follows with [facility]
--- OUTSIDE RECORDS SUMMARY | 2025-05-15 13:18 | XMS_ITS | Clinical Summary ---
Author Organization [facility] Address [address] [place] [address] Phone Care Team Providers Care Radiation / Chemistry Technician Name Role Phone Adriel Shelley MD Primary Care Provider [phone] Allergies Active Allergy Reactions Criticality Noted Date Comments Cephalexin Diarrhea,Nausea Only,GI intolerance,Unknown 03/27/2018 Codeine Nausea And Vomiting,Dizziness,GI intolerance,Unknown Medium 04/26/2016 Epinephrine 05/20/2024 Levofloxacin Diarrhea,Nausea Only,GI intolerance,Unknown 03/27/2018 Yvusxop-Lde-Ttp Reductase Inhibitors Medium 06/04/2019 Muscles aches Medications [...] FOR COUGH OR WHEEZING 9 g 2 5 Active escitalopram (LEXAPRO) 20 mg tablet Take 1 tablet (20 mg total) by mouth 1 (one) time each day. 30 each 14 5 10/28/19 26 Active montelukast (SINGULAIR) 10 mg tablet Take 1 tablet (10 mg total) by mouth at bedtime. at bedtime. 90 tablet 1 5 Active buPROPion SR (WELLBUTRIN SR) 150 mg 12 hr tablet Take 1 tablet (150 mg total) by mouth 2 (two) times a day. 180 tablet 1 5 Active amLODIPine (NORVASC) 10 mg tablet Take 1 tablet by mouth twice daily 180 tablet 1 5 Active clopidogreL (PLAVIX) 75 mg tablet Take 1 tablet by mouth once daily 30 tablet 5 5 Active Spiriva with HandiHaler 18 mcg per inhalation capsule PLACE 1 CAPSULE INTO THE INHALER AND INHALE THE CONTENTS BY MOUTH INTO THE LUNGS THROUGH THE SPIRIVA DEVICE ONE TIME EVERY MORNING 30 capsule 4 5 Active benazepriL (LOTENSIN) 40 mg tablet Take 1 tablet by mouth once daily 90 tablet 1 5 Active ezetimibe (ZETIA) 10 mg tablet Take 1 tablet (10 mg total) by mouth 1 (one) time each day. 90 each 1 5 Active omeprazole (PriLOSEC) [address] capsuleIndications :Moderate persistent asthma, uncomplicated Take 1 capsule by mouth once daily 90 capsule 5 Active Active Problems Problem Noted Date Diagnosed [...] Overview (08/06/2023): S/p kyphoplasty 10/2018 follows with [facility] Essential hypertension 11/25/2018 Overview (08/06/2023): Last [...] general and how their size, shape, and changeover operator time determine her level of suspicion [...] general and how their size, shape, and changeover operator time factor level of suspicion for [...] We will also have her see a payroll administrative assistant for a risk assessment given she has significant peripheral vascular disease and the coincidence of peripheral vascular disease and coronary artery disease. Resolved Problems Problem Noted Date Diagnosed Date Resolved Date Primary cancer of right upper lobe of lung 02/21/2022 06/04/2024 Adenocarcinoma of lung 12/06/201806/04 Overview (08/06/2023): Diagnosed November 2017, s/p VATS for upper and lower lobe resection and radiation Follows with [facility] Oncology Encounters Date Type Department Care Team Description 05/14/2025 10:30 AM EST Office Visit Thoracic Surgery - [place] [address] [place] [phone] Raine Ballard PA 05/11/2025 11:00 AM EST Office Visit Vascular Surgery - [place] [address] [place] [phone] Ronen Vernon MD PAD (peripheral artery disease) (CMS/HCC V24) (Primary Dx); Mesenteric ischemia (CMS/HCC V24); Superior mesenteric artery stenosis (CMS/HCC V24); Chronic mesenteric ischemia (CMS/HCC V24) 05/08/2025 9:11 AM EST - 05/08/2025 11:59 PM EST Hospital Encounter CT Scan [address] [place] [phone] PAD (peripheral artery disease) ([facility] V24); S/P angioplasty with stent Discharge Disposition: Home or Self Care 05/08/2025 9:10 AM EST - 05/08/2025 11:59 PM EST Hospital Encounter CT Scan [address] [place] [phone] History of lung cancer; Multiple pulmonary nodules Discharge Disposition: Home or Self Care 05/08/2025 Results Follow-Up Vascular Surgery - [place] [address] [place] [address] Celi Reyez PA 04/15/2025 Results Follow-Up Vascular Surgery [facility] [address] [place] [address] Peggy Cordoba PA 04/13/2025 11:15 AM EST Lab Draw Station - [address] [place] [phone] PAD (peripheral artery disease) ([facility] V24); S/P angioplasty with stent 04/13/2025 10:30 AM EST Office Visit Vascular Surgery [facility] [address] [place] [address] Ronen Vernon MD PAD (peripheral artery disease) ([facility] V24) (Primary Dx); S/P angioplasty with stent 04/08/2025 10:00 AM EST Ancillary Procedure [facility] - [address] [place] [phone] Atherosclerosis; PAD (peripheral artery disease) ([facility] V24) 04/06/2025 10:00 AM EST Office Visit Hematology Oncology [address] [place] [phone] Kathy Rene DO Primary cancer of left upper lobe of lung ([facility]/HCC V24, CMS/[facility] V28) (Primary Dx) 03/10/[address] [phone] Rossi Carlos MD 03/09/2025 1:57 PM EDT - 03/09/2025 11:59 PM EDT Hospital Encounter [address] [phone] Neck pain; Acute right ankle pain Discharge Disposition: Home or Self Care 03/09/2025 1:30 PM EDT Office Visit [address] [phone] Marquis Cardona NP Neck pain (Primary Dx); Acute right ankle pain; Essential hypertension 03/09/2025 Results Follow-Up [address] [phone] Marquis Cardona NP 03/09/2025 Telephone Adult [address] [phone] Rossi Carlos MD from Last 3 Months [...] bx.-benign OTHER SURGICAL HISTORY 12/26/2022 Bilateral PROCEDURE: OR REVASCULARIZATION ILIAC ARTERY ANGIOP 1ST VSL OTHER SURGICAL HISTORY 12/26/2022 Bilateral PROCEDURE: OR REVASC INTRAVASC LITHOTRIPSY OTHER SURGICAL HISTORY 01/25/2023 Left PROCEDURE: OR TEAEC W/GRAFT POPLITEAL ARTERY OTHER SURGICAL HISTORY 07/03/2023 PROCEDURE: OR REVSC OPN/PRG FEM/POP W/ANGIOPLASTY UNI OTHER SURGICAL HISTORY 07/03/2023 PROCEDURE: OR INTRAVASCULAR US NONCORONARY RS&I INTIAL VESSEL OTHER SURGICAL HISTORY 07/03/2023 PROCEDURE: OR INTRAVASCULAR US NONCORONARY RS&I ADDL VESSEL OTHER SURGICAL HISTORY 07/03/2023 PROCEDURE: ULTRASOUND GUIDANCE FOR VASCULAR AC OTHER SURGICAL HISTORY 10/24/2023 Left PROCEDURE: OR THORACOSCOPY W/LOBECTOMY SINGLE LOBE; COMMENT: KENNY Medical [...] lower lobe resection and radiation Follows with [facility]cology Anxiety DX:Anxiety Depression 05/19/2015 [...] Quit 12/2017 Compression fracture of T12 vertebra ([facility] V24, [facility] V28) 02/25/2019 DX:Compression fracture of T12 vertebra ([facility]); COMMENT: S/p kyphoplasty 10/2018 follows with [facility] History of lung cancer 03/13/2022 DX:Histor y of lung cancer Chest pain 09/26/2023 DX:Chest pain Pre-op exam 09/26/2023 DX:Pre-op exam Vocal cord paralysis left Primary cancer of right uppe r lobe of lung ([facility] V24, [facility] V28) 02/21/2022 Family History Medical [...] your loved ones. For example, child care teacher or elderly care for an older [...] Pulse 76 05/11/2025 11:20 AM EST Temperature 36.4 C (97.6 F) 04/06/2025 10:08 AM EST Respiratory Rate 16 05/11/2025 11:20 AM EST Oxygen Saturation 96% 04/06/2025 10:08 AM EST Inhaled Oxygen Concentration - - Weight 70.8 kg (156 lb) 05/11/2025 11:20 AM EST Height 157.5 cm (5' 2 ) 05/11/2025 11:20 AM EST Body Mass Index 28.53 05/11/2025 11:20 AM EST Plan of Treatment Upcoming Encounters Date Type Department Care Team (Late st Contact Info) Description 04/06/2026 10:00 AM EST Office Visit Hematology Oncology [address] [place] [address] Kathy Rene DO [address] [place] [address] 04/13/2026 12:00 PM EST Ancillary Procedure [facility] [address] [phone] 04/14/2026 8:30 AM EST Ancillary Procedure [facility] [address] [address] 05/14/2026 10:30 AM EST Office Visit Vascular Surgery - [place] [address] [facility] [address] [place] [address] Ronen Vernon MD [address] [place] [phone] Health Maintenance Due Date Last Done Comments [...] this topic Medical Devices Implanted Type Area Spar Machine Operator Device Identifier Shelf Expiration Date Model / Serial / Lot Stent Graft Endovas 6x19mm 6f 135cm - [id number] - [id number] Implanted:Qty : 1 on 06/24/2024 by Ronen Vernon MD at [facility] Peripheral Vasc Drug Coated Stents N/A: Arterial [employer] [id number] 01/28/2027 [id number] / [id number] / Procedures Procedure Name Priority Date/Time Associated Diagnosis Comments CT ANGIO ABDOMINAL AORTA W RUNOFF STAT 05/08/2025 9:58 AM EST PAD (peripheral artery disease) ([facility] V24) S/P angioplasty with stent CT CHEST WO CONTRAST Routine 05/08/2025 9:54 AM EST History of lung cancer Multiple pulmonary nodules EXTERNAL CLINICAL LAB 04/29/2025 BUN Routine 04/13/2025 11:14 AM EST PAD (peripheral artery disease) ([facility] V24) S/P angioplasty with stent CREATININE, SERUM Routine 04/13/2025 11: 14 AM EST PAD (peripheral artery disease) ([facility] V24) S/P angioplasty with stent VAS US DUPLEX LOWER EXT ARTERIES BILAT WITH NICK Routine 04/08/2025 10:51 AM EST Atherosclerosis PAD (peripheral artery disease) ([facility] V24) EXTERNAL XRAY REPORT 03/11/2025 EXTERNAL XRAY REPORT 03/11/2025 XR CERVICAL SPINE 4-5 VIEWS Routine 03/09/2025 2:04 PM EDT Neck pain Acute right ankle pain LIPID PANEL WITH REFLEX TO DIRECT LDL Routine 01/30/2025 12:20 PM EDT Other hyperlipidemia [facility] DEXA AXIAL SKELETON Routine 09/28/2022 4:50 PM EDT Other specified disorders of bone density and structure, other site COLONOSCOPY Routine 08/31/2017 HEPATITIS C SCREENING Routine 07/02/2015 from Last 3 Months or Most Recently Relevant to Health Maintenance Results * CT Angio Abdominal Aorta w Runoff (05/08/2025 9:58 AM EST) Anatomical Region Laterality Modality Body Computed Tomogra phy 05/08/2025 10:3 1 AM EST Impressions 05/08/2025 10:59 AM EST 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 Patent proximal SMA stent. Unchanged severe stenosis of the right renal artery origin. Unchanged moderate stenosis at the origin of the dominant left renal artery with patent smaller accessory left renal artery. Unchanged moderate stenosis of the aorta at the level of the SMA. Unchanged moderate stenosis at the LEATHA origin. Occlusion of the right posterior tibial artery at the origin. Otherwise patent right lower extremity arteries with patent 2 vessel runoff at the right ankle. Patent left lower extremity arteries with patent three-vessel runoff at the left ankle. -------- FINAL REPORT -------- Dictated By: DOMENICO HIGH Dictated Date: 05/08/2025 10:31 ET Assigned Physician: DOMENICO HIGH Reviewed and Electronically Signed By: DOMENICO HIGH Signed Date: 05/08/2025 10:59 ET Workstation ID: [id number] Transcribed By: Self Edit Transcribed Date: 05/08/2025 10:31 ET Narrative 05/08/2025 10:59 AM EST PROCEDURE: CTA abdomen and pelvis with bilateral [...] SMA is unchanged. The moderate stenosis of LEATHA origin is unchanged. No abdominal aortic aneurysm. [...] lower extremities. No mass or fluid collection. Distal right fibular fixation hardware is noted. Procedure Note Domenico High MD - 05/08/2025 PROCEDURE: CTA abdomen and pelvis with bilateral extremity runoff INDICATION: Peripheral arterial disease TECHNIQUE: Chest CTA with intravenous administration of 120cc ISOVUE 370.Multi planar reformats were created and interpreted. The examination wasperformed utilizing dose reduction techniques. 3-D postprocessing wasperformed on an independent workstation with direct supervision by theradiologist. Total DLP 1076 COMPARISON: 09/16/2024 FINDINGS: CTA: The descending thoracic aorta is patent where visualized. Severe stenosisat the origin of the celiac artery with preserved contrast opacificationof the more distal branches, similar compared to prior. Patent SMA stent with preserved contrast opacification of the distal SMAbranches. Severe stenosis at the right renal artery origin, unchanged. Dominant, more posterior left renal artery with moderate stenosis, similarcompared to prior. Smaller, more anterior left renal artery is patent. Moderate narrowing of the aortic lumen at the level of the SMA isunchanged. The moderate stenosis of LEATHA origin is unchanged. No abdominal aorticaneurysm. Calcified plaque at the common iliac artery origins without high-gradestenosis. The right common iliac artery is patent. The right externaliliac artery is patent. The left common iliac artery is patent. The left external iliac artery ispatent. The internal iliac arteries are patent bilaterally. Calcified plaque at the right common femoral artery with mild stenosis.The right SFA and profunda are patent. Right popliteal artery ispatent. There is occlusion of the right posterior tibial artery at the origin withpatent 2 vessel runoff at the right ankle. Calcified plaque at the left common femoral artery with moderate stenosis.The left SFA and profunda are patent. The left popliteal artery is patent. The left calf arteries are patentwith three-vessel runoff at the left ankle. No dissection or active arterial bleeding. Other: Atelectasis at the lung bases. Small hiatal hernia. Hepatic steatosis. No suspicious liver lesions. Cholecystectomy. Nobiliary duct dilatation. Pancreas, spleen, and adrenal glands are within normal limits. Kidneys are normal. No retroperitoneal or mesenteric lymphadenopathy. Hysterectomy. Bladder is normal. No adnexal mass or pelviclymphadenopathy. Colonic diverticulosis. No bowel obstruction or wall thickening.Appendectomy. No ascites, fluid collection, or free intraperitonealair. Superficial soft tissues are within normal limits. Degenerative changesseen throughout the lumbar spine with prior T12 vertebral augmentation andchronic fracture. No acute fracture. Degenerative changes are seen throughout the lower extremities. No massor fluid collection. Distal right fibular fixation hardware is noted. 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 Patent proximal SMA stent. Unchanged severe stenosis of the right renal artery origin. Unchangedmoderate stenosis at the origin of the dominant left renal artery withpatent smaller accessory left renal artery. Unchanged moderate stenosis of the aorta at the level of the SMA.Unchanged moderate stenosis at the LEATHA origin. Occlusion of the right posterior tibial artery at the origin. Otherwisepatent right lower extremity arteries with patent 2 vessel runoff at theright ankle. Patent left lower extremity arteries with patent three-vessel runoff atthe left ankle. -------- FINAL REPORT -------- Dictated By: DOMENICO HIGH Dictated Date: 05/08/2025 10:31 ET Assigned Physician: DOMENICO HIGH Reviewed and Electronically Signed By: DOMENICO HIGH Signed Date: 05/08/2025 10:59 ET Workstation ID: [id number] Transcribed By: Self Edit Transcribed Date: 05/08/2025 10:31 ET Ronen Vernon MD [facility] CT PROCEDURES Final Result * CT Chest wo Contrast (05/08/2025 9:54 AM EST) Anatomical Region Laterality Modality Body Computed Tomogra phy 05/11/2025 1:05 PM EST Impressions 05/11/2025 1:10 PM EST Stable postoperative changes in the chest. Multiple new semisolid and groundglass nodules throughout the lungs are likely infectious/inflammatory. Chest CT recommended in 3 months to ensure resolution. No thoracic lymphadenopathy. -------- FINAL REPORT -------- Dictated By: DOMENICO HIGH Dictated Date: 05/11/2025 13:05 ET Assigned Physician: DOMENICO HIGH Reviewed and Electronically Signed By: DOMENICO HIGH Signed Date: 05/11/2025 13:10 ET Workstation ID: [id number] Transcribed By: Self Edit Transcribed Date: 05/11/2025 13:05 ET Narrative 05/11/2025 1:10 PM EST PROCEDURE: Chest CT INDICATION: Lung cancer, nodules TECHNIQUE: Chest CT without contrast. Multi planar reformats were created and interpreted. The examination was performed utilizing dose reduction techniques. COMPARISON: 10/28/2024 FINDINGS: LUNGS/PLEURA: Central airways are patent. Left upper lobectomy. Wedge resection in the left lower lobe. Wedge resections in the right upper and lower lobes. No pleural effusion or pneumothorax. 4 mm nodule in the left upper lobe is stable compared to prior. 7 mm groundglass nodule in the right lower lobe is stable compared to prior. Right lower lobe nodules along the major fissure measuring up to 9 mm are stable compared to prior. Peripheral semisolid nodule in the right upper lobe measuring 12 mm, stable compared to prior. Scarring along the right lower lobe suture line is stable compared to prior. There are multiple new groundglass and semisolid nodules throughout the lungs. No pleural effusion or pneumothorax.. MEDIASTINUM: Thyroid gland is within normal limits. No mediastinal or hilar lymphadenopathy. Small hiatal hernia. Cardiac chambers are normal in size. No pericardial effusion. Moderate coronary artery calcifications. CHEST WALL: No axillary lymphadenopathy or superficial hematoma. UPPER ABDOMEN:Cholecystectomy. Celiac arterial stent. Dense calcification in the upper abdominal aorta BONES: Chronic T12 compression fracture with evidence of prior vertebral augmentation. No acute fracture. No suspicious lytic or blastic lesions. Procedure Note Domenico High MD - 05/11/2025 PROCEDURE: Chest CT INDICATION: Lung cancer, nodules TECHNIQUE: Chest CT without contrast. Multi planar reformats were createdand interpreted. The examination was performed utilizing dose reductiontechniques. COMPARISON: 10/28/2024 FINDINGS: LUNGS/PLEURA: Central airways are patent. Left upper lobectomy. Wedgeresection in the left lower lobe. Wedge resections in the right upper andlower lobes. No pleural effusion or pneumothorax. 4 mm nodule in theleft upper lobe is stable compared to prior. 7 mm groundglass nodule inthe right lower lobe is stable compared to prior. Right lower lobenodules along the major fissure measuring up to 9 mm are stable comparedto prior. Peripheral semisolid nodule in the right upper lobe [id number] mm, stable compared to prior. Scarring along the right lower lobesuture line is stable compared to prior. There are multiple newgroundglass and semisolid nodules throughout the lungs. No pleuraleffusion or pneumothorax.. MEDIASTINUM: Thyroid gland is within normal limits. No mediastinal orhilar lymphadenopathy. Small hiatal hernia. Cardiac chambers are normalin size. No pericardial effusion. Moderate coronary arterycalcifications. CHEST WALL: No axillary lymphadenopathy or superficial hematoma. UPPER ABDOMEN:Cholecystectomy. Celiac arterial stent. Densecalcification in the upper abdominal aorta BONES: Chronic T12 compression fracture with evidence of prior vertebralaugmentation. No acute fracture. No suspicious lytic or blasticlesions. IMPRESSION: Stable postoperative changes in the chest. Multiple new semisolid andgroundglass nodules throughout the lungs are likelyinfectious/inflammatory. Chest CT recommended in 3 months to ensureresolution. No thoracic lymphadenopathy. -------- FINAL REPORT -------- Dictated By: DOMENICO HIGH Dictated Date: 05/11/2025 13:05 ET Assigned Physician: DOMENICO HIGH Reviewed and Electronically Signed By: DOMENICO HIGH Signed Date: 05/11/2025 13:10 ET Workstation ID: [id number] Transcribed By: Self Edit Transcribed Date: 05/11/2025 13:05 ET us Ranie RIBEIRO IMG CT PROCEDURES Final Resul t * External clinical lab (04/29/2025) us Provider [facility] LAB BLOOD ORDERABLES Fin al Result * Creatinine (04/13/2025 11:14 AM EST) Creatinine 0.82 0.50 - 1.10 mg/dL LAB CHEMISTRY METHOD 04/13/2025 1:39 PM EST [facility] eGFR 73 >=60 mL/min/1. 73m2 LAB CHEMISTRY METHOD 04/13/2025 1:39 PM EST [facility] Comment:Calculation based on the Chronic Kidney Disease Epidemiology Collaboration (CKD-EPI) equation refit without adjustment for race. Blood Venous blood specimen / Unknown Venipuncture / Unknown 04/13/2025 11:14 AM EST 04/13/2025 11:57 AM EST us Ronen Vernon MD LAB BLOOD ORDERABLES Final Resu lt [facility] [address] [place] [address], [place] [phone] * BUN (04/13/2025 11:14 AM EST) Pathologist [facility] BUN 18 5 - 25 mg/dL LAB CHEMISTRY METHOD 04/13/2025 1:39 PM EST [facility] Blood Venous blood specimen / Unknown Venipuncture / Unknown 04/13/2025 11:14 AM EST 04/13/2025 11:57 AM EST us Ronen Vernon MD LAB BLOOD ORDERABLES Final Resu lt [facility] [address] [place] [address], [place] [phone] * Vascular US duplex lower extremity arteries [...] PSV 72 cm/s CV VAS LAB Left FURNITURE LUMBER PRODUCTION WORKER prox sys PSV 463 cm/s CV VAS [...] PSV 112 cm/s CV VAS LAB Right FURNITURE LUMBER PRODUCTION WORKER prox sys PSV 322 cm/s CV VAS [...] The mid peroneal artery has biphasic flow. Sawmill Or Timber Yard Worker Details A tamayo scale, color and doppler [...] Anatomical Region Laterality Modality Radiographic Leatha ging Provider [facility] IMG XR PROCEDURES Final [...] Signed Date: 03/09/2025 15:32 ET Workstation ID: [id number] Transcribed By: Self Edit Transcribed Date: 03/09/2025 [...] Signed Date: 03/09/2025 15:32 ET Workstation ID: [id number] Transcribed By: Self Edit Transcribed Date: 03/09/2025 15:22 ET Marquis Cardona CONTINUOUS DRIER OPERATOR IMG XR PROCEDURES Final Resu lt * (ABNORMAL) Lipid panel with reflex to direct LDL (01/30/2025 12:20 PM EDT) Cholesterol 228(H) 0 - 200 mg/dL LAB CHEMISTRY METHOD 01/30/2025 8:15 PM EDT [facility] Triglycerides 139 0 - 150 mg/dL LAB CHEMISTRY METHOD 01/30/2025 8:15 PM EDT [facility] HDL 89 >=40 mg/dL LAB CHEMISTRY METHOD 01/30/2025 8:15 PM EDT [facility] LDL Calculated 111(H) 0 - 100 mg/dL LAB CHEMISTRY METHOD 01/30/2025 8:15 PM EDT [facility] Comment:Estimated LDL Calcul ated using equation: Total cholesterol - HDL cholesterol - (Triglycerides/5) VLDL Cholesterol Kt 27.8 mg/dL LAB CHEMISTRY METHOD 01/30/2025 8:15 PM EDT [facility] Non HDL Chol. (LDL+VLDL) 139 <145 mg/dL LAB CHEMISTRY METHOD 01/30/2025 8:15 PM EDT [facility] Chol/HDL Ratio 2.6 0.0 - 4.4 LAB CHEMISTRY METHOD 01/30/2025 8:15 PM EDT [facility] Blood Venous blood specimen / Unknown Venipuncture / Unknown 01/30/2025 12:20 PM EDT 01/30/2025 12:20 PM EDT us Rossi Carlos MD LAB BLOOD ORDERABLES Final Resul t [facility] [address] [place] [address], * CARMEN DEXA AXIAL SKELETON (09/28/2022 4:50 PM EDT) Anatomical Region Laterality Modality Mammography 09/27/2022 9:52 AM EDT Narrative 09/28/2022 4:[address] [facility] Diagnostic Imaging Department [address] [place] [address] Patient: CARMEN GRACE/Age/Sex: 1945 - 76 - F Unit#: [id number] Location/Status: SPDIMAM/REG CLI Mnemonic/Ordering Site: MAMDEXAAX/SPMAM Ordering Physician: ROSSI CARLOS MD Carmen Dexa Axial Skeleton - 09/27/22 - 104 History: Low estrogen state due to menopause. Current smoker. Parent hip fracture. Chronic glucocorticoid use. Adult fracture (ankle, heel, wrist). On omeprazole. Comparison: 02/02/16 Findings: Bone densitometry is performed utilizing dual energy x-ray absorptiometry (DXA) in the [address] unit. The lumbar spine and proximal femora [...] 55.9 percent Hip 44.4 percent. IMPRESSION: Osteopenia. [id number] Dictating Physician: CHANTELLE MENDEZ MD Electronically Signed by: CHANTELLE MENDEZ MD Dic Date/Time: 09/28/22 1648 Sign date/Time: 09/28/22 1650 Procedure Note Chantelle Mendez MD - 06/29/2023 [facility] Diagnostic Imaging Department [address] [place], [place] [id number] Patient: CARMEN GRACE /Age/Sex: 1945 - 76 - F Unit#: [id number] Location/Status: SPDIMAM/REG CLI Mnemonic[facility] Order[facility] Physician: ROSSI CARLOS MD [facility] Dexa Axial Skeleton - 09/27/22 - 1041 History: Low estrogen state due to menopause. Current smoker. Parent hip fracture. Chronic glucocorticoid use. Adult fracture (ankle, heel, wrist).On omeprazole. Comparison: 02/02/16 Findings: Bone densitometry is performed utilizing dual energy x-ray absorptiometry(DXA) in the [address] unit. The lumbar spine and proximal femora [...] 55.9 percent Hip 44.4 percent. IMPRESSION: Osteopenia. [id number] Dictating Physician: CHANTELLE MENDEZ MD Electronically Signed by: CHANTELLE MENDEZ MD Dic Date/Time: 09/28/22 1648 Sign date/Time: 09/28/22 1650 Rossi Carlos MD IMG BI PROCEDURES Final Result * Colonoscopy (08/31/2017) Colonoscopy negative Anatomical Region Laterality Modality Other Historical Provider HEALTH MAINTENANCE Final Result * [...] currently active code status orders. Care Teams Radiation / Chemistry Technician Relationship Specialty Start Date End Date Adriel Shelley MD [address] [place] [address] Dr Carnes Tashia SÁNCHEZ Torres [address] PCP - General Internal Medicine 05/14/25
--- OUTSIDE RECORDS SUMMARY | 2025-05-15 13:19 | XMS_ITS | Clinical Summary ---
Author Organization [facility] Prior to 10/25/[address] [place] [address] Care Team Providers Care Business Continuity Director Name Role Phone Zeke Carlos MD Primary Care Provider [phone] Allergies Active Allergy Reactions Criticality Noted Date [...] age to complete this topic Care Teams Business Continuity Director Relationship Specialty Start Date End Date Zeke Carlos MD PCP - General Internal Medicine 11/23/21
--- OUTSIDE RECORDS SUMMARY | 2025-05-15 13:19 | XMS_ITS | Patient Health Record ---
Author Organization [facility] Address [address] [facility] [place] [address] Care Team Providers Care Client Analyst Name Role Phone Breanna VÁSQUEZ, Zeke Blake Primary Care Provider Unav ailable Black, Shiela Unavailable [phone] Allergies Allergen (clinical drug ingredient) Drug/Non Drug [...] Ulcer of toe of right foot (disorder) (896048620 [id number]) Skin ulcer of toe of right foot, limited to breakdown of skin (L97.511) Active confirmed Problem Ulcer of toe of left foot (disorder) (538892383 01288564) Skin ulcer of toe of left foot, limited to breakdown of skin (L97.521) Active confirmed Nonapplicable Problem Skin ulcer of toe of right foot with fat layer exposed (L97.512) Active confirmed Problem Skin ulcer of toe of left foot with fat layer exposed (L97.522) Active confirmed Plan Of Treatment Pending Test Test Name Order Date 65816-Lcznszbi Plate 03/09/2023 64699- Debride <25 sq cm 03/26/2023 Insurance Providers Payer Name Payer Address Payer Phone Subscriber Number Group Number Insured Name Patient Relationship to Insured Coverage Start Date Coverage End Date [employer] [place] Medicare Advantage [address] [place] [address] [id number] Carmen Grace Self - patient is the insured Medical (General) History Medical History History ICD Code Anxiety Broken bones CAD (Cholesterol) Cancer Cataracts Depression High blood pressure Lung disease Reflux ( GERD) Vascular phlebitis (clots) Vascular grafts Joint implants/screws Surgical History Surgery Date(Month/Year) femoropopliteal bypass graft Gall bladder removal 2023 Lung Cancer Surgery 09/2023
--- OUTSIDE RECORDS SUMMARY | 2025-05-15 13:19 | XMS_ITS | Clinical Summary ---
Author Organization [facility] Address [address] [place] [address] Phone Care Team Providers Care Flour Mixer Name Role Phone JeradParminder Ursula Angie DO [...] REPLACEMENT [employer] [place] MEDIC[employer] HMO REPLACEMENT [facility] MEDICARE HMO REPLACEMENT [employer] [place] MEDIC[employer] HMO REPLACEMENT Care Teams Flour Mixer Relationship Specialty Start Date End Date Ursula Alcala DO [address] [place] [address] PCP - General Internal Medicine 12/24/18 Additional Source Comments The information contained in this document represents components of the legal health record. It is not the complete legal health record.[facility]
--- OUTSIDE RECORDS SUMMARY | 2025-05-15 13:19 | XMS_ITS | Encounter Summary ---
Author Organization [facility] Prior to 10/25/[address] [place] [address] Care Team Providers Care Chief Librarian Work With Blind Name Role Phone Zeke Carlos MD Primary Care Provider [phone] Encounter Details Date Type Department Care Team Description 02/18/2024 Nurse Only [facility] Oncology Services [address] [place] [address] Simta Martinez RN Social History Tobacco Use Types [...] on filedocumented in this encounter Care Teams Chief Librarian Work With Blind Relationship Specialty Start Date End Date Zeke Carlos MD PCP - General Internal Medicine 11/23/21 documented as of this encounter
== END 2025-05-15 11:52 | disposition home or self-care (01) ==
LOC: HO.HMCHD 11:18
PROVIDERS: PCP Student in an Organized Health Care Education/Training Program; Visit Provider Student in an Organized Health Care Education/Training Program
DX: I10 Essential (primary) hypertension (principal); J44.9 Chronic obstructive pulmonary disease, unspecified; I73.9 Peripheral vascular disease, unspecified; F41.9 Anxiety disorder, unspecified; F32.A Depression, unspecified; K21.9 Gastro-esophageal reflux disease without esophagitis; Z85.118 Personal history of other malignant neoplasm of bronchus and lung; F10.10 Alcohol abuse, uncomplicated; Z00.00 Encounter for general adult medical examination without abnormal findings

== ENCOUNTER 2025-05-15 11:17 | Outpatient (REF) | payer MEDICARE, SELFPAY ==
[2025-05-15 12:13] LABS: MANUAL DIFF FLAG NO
[2025-05-15 12:30] LABS: Hematocrit 34.9 % (37.0-47.0); Hemoglobin 11.8 g/dl (12.0-16.0); Imm Gran Abs Auto 0.17 X10*3/uL (0.00-0.03); Imm Gran Pct Auto 1.3 % (0.0-0.4); Lymphocytes Absolute Auto 3.7 X10*3/uL (1.2-4.9); Mean Corpuscular HGB Conc 33.8 g/dl (31.0-35.0); Mean Corpuscular Hemoglobin 29.9 pg (27.0-33.0); Mean Corpuscular Volume 88.4 fL (80.0-98.0); NRBC Abs Auto 0.000 X10*3/uL (0.0-0.012); NRBC Pct Auto 0.0 /100WBC (0.0-0.2); Platelet Count 382 X10*3/uL (160-400); Red Blood Count 3.95 X10*6/uL (4.20-5.50); White Blood Count 13.4 X10*3/uL (4.8-10.8)
[2025-05-15 13:02] LABS: Alanine Aminotransferase 22 U/L (0-31); Albumin Level 3.9 g/dL (3.5-5.0); Alkaline Phosphatase 90 U/L (39-117); Anion Gap 13 (12-20); Aspartate Amino Transferase 23 U/L (5-31); Blood Urea Nitrogen 22 mg/dL (9-16); Calcium 9.2 mg/dL (8.4-10.2); Carbon Dioxide 25 mmol/L (22-29); Chloride 101 mmol/L (96-108); Cholesterol 218 mg/dL (<200); Estimated Glomerular Filt Rate > 60; HDL Cholesterol 67 mg/dL (>40); Potassium 4.8 mmol/L (3.3-5.1); Sodium 134 mmol/L (135-145); Total Protein 6.4 g/dL (6.5-8.0); Triglycerides 165 mg/dL (<150)
[2025-05-18 03:52] LABS: Syphilis Screen Nonreactive (Nonreactive)
[2025-05-18 04:31] LABS: HBS Num1 0.00 mIU/mL (0-7.99); HBc Num1 0.04 S/CO (0.00-0.79); HBsAGNum1 0.31 S/CO (0.00-0.99); HIV Num 1 0.07 S/CO (0.00-0.99); Hepatitis A Antibody IgM 0.21 Index (0-0.79); Hepatitis B Surface Antigen Negative (Negative); ~HepC Num1 0.19 S/CO (0.00-0.79); ~Hepatitis A Antibody IgM Nonreactive (Nonreactive); ~Hepatitis B Surface Antibody NONREACTIVE (Nonreactive); ~Hepatitis C Antibody Nonreactive (Nonreactive)
== END 2025-05-15 11:18 | disposition home or self-care (01) ==
LOC: HO.LAB 11:17
PROVIDERS: PCP Student in an Organized Health Care Education/Training Program; Visit Provider Student in an Organized Health Care Education/Training Program
DX: Z00.00 Encounter for general adult medical examination without abnormal findings (principal); I10 Essential (primary) hypertension; I73.9 Peripheral vascular disease, unspecified; E78.5 Hyperlipidemia, unspecified; F41.9 Anxiety disorder, unspecified; F32.A Depression, unspecified; K21.9 Gastro-esophageal reflux disease without esophagitis; J44.9 Chronic obstructive pulmonary disease, unspecified; F10.10 Alcohol abuse, uncomplicated; E55.9 Vitamin D deficiency, unspecified; Z87.891 Personal history of nicotine dependence; Z13.1 Encounter for screening for diabetes mellitus; Z85.118 Personal history of other malignant neoplasm of bronchus and lung
CPT/HCPCS: 36415; 80053; 80061; 82306; 83036; 84443; 85025; 86704; 86706; 86709; 86780; 86803; 87340; 87389; 96127; 99202

== ENCOUNTER 2025-05-16 11:02 | Outpatient (REF) | payer MEDICARE, SELFPAY ==
--- OUTSIDE RECORDS SUMMARY | 2024-03-28 09:48 | XMS_ITS | Encounter Summary ---
Author Organization [facility] Address [address] [place] [address] Care Team Providers Care Access Liaison Name Role Phone Zeke Carlos MD Primary Care Provider [phone] Encounter Details Date Type Department Care Team (Late st Contact Info) Description 03/28/2024 10:48 AM EDT Hospital Encounter TH HISTORIC [facility]OUN[facility] ONLY Kishan Flynn MD [address] [place] [phone] Social History Tobacco Use Types Packs/Day Years Used Date Smoking Tobacco: Former Cigarettes 0.3 Q uit: 01/08/2018 Smokeless Tobacco: Never Alcohol Use Standard Drinks/Week Comments Yes 3 (1 standard drink = 0.6 oz pure alcohol) some times wine with dinner half a glass Housing Instability Answer Date Recorde d Are you worried that in the next 2 months you may not have stable housing? No 10/14/2024 Food Access & Nutrition Answer Date Rec orded Do you have access to a vari ety of food including fruits and vegetables? Yes 10/14/2024 Access to Healthcare Answer Date Record ed Within the last 3 months, ho w many times did you visit the emergency department for your medical care? 0 10/14/2024 Health Literacy Answer Date Recorded How often do you need to hav e someone help you when you read instructions, pamphlets, or other written material from your doctor or pharmacy? Rarely 10/14/2024 Caregiver: How often do you need to have someone help you when you read instructions, pamphlets, or other written material from your doctor or pharmacy? Not on file 10/14/2024 Financial Risk Answer Date Recorded How hard is it for you to pa y for the very basics like food, housing, medical care, and air conditioning / heating? Patient declined 10/14/2024 Transportation Answer Date Recorded Has the lack of transportati on kept you from meetings, work, or from getting things needed for daily living? No Has the lack of transportati on kept you from medical appointments or from getting medications? No 10/14/2024 Social Isolation Answer Date Recorded How often do you feel lonely or isolated from those around you? Sometimes 10/14/2024 Food Risk Answer Date Recorded Within the past 12 months we worried whether our food would run out before we got money to buy more. Never true 10/14/2024 Within the past 12 months th e food we bought just didn't last and we didn't have money to get more. Never true 10/14/2024 Dependent Care Answer Date Recorded Do you need help finding or paying for care for your loved ones. For example, children's tutor or elderly care for an older adult? No 10/14/2024 Education Answer Date Recorded Do you think completing more education or training, like finishing a GED, going to college, or learning a trade, would be helpful for you? No 10/14/2024 Employment and Income Answer Date Recor ded During the last four weeks, have you been actively looking for work? No 10/14/2024 Living Situation Answer Date Recorded What is your living situation? Unrecognized valu e 10/14/2024 Interpersonal Safety Answer Date Record ed Physical Abuse Unrecognized value 04/14/2024 Verbal Abuse Unrecognized value 04/14/2024 Comments No Sex and Gender Information Value Date Recorded Sex Assigned at Female 03/28/2024 10:43 AM EDT Legal Sex Female 2:24 AM EST Gender Identity Female 03/28/2024 10:43 AM EDT Sexual Orientation Straight 03/28/2024 10 :43 AM EDT documented as of this encounter Plan of Treatment Upcoming Encounters Date Type Department Care Team (Late st Contact Info) Description 04/06/2026 10:00 AM EST Office Visit [facility] Hematology Oncology [address] [place] [address] Kathy Rene, DO [address] [place] [address] 04/13/2026 12:00 PM EST Ancillary Procedure [facility] Cardiology [facility] [address] [address] 04/14/2026 8:30 AM EST Ancillary Procedure [facility], [facility]ated [facility] 101 300 [facility] [address] [place] [address] 05/14/2026 10:30 AM EST Office Visit Vascular Surgery - [place] 300 [facility] [address] [place] [phone] Ronen Vernon MD [address] [place] [address] documented as of this encounter Procedures Procedure Name Priority Date/Time Associated Diagnosis Comments ABDOMEN FLAT AND ERECT Routine 03/28/2024 11:37 AM EDT documented in this encounter Results * ABDOMEN FLAT AND ERECT (03/28/2024 11:37 AM EDT) Anatomical Region Laterality Modality Radiographic Leatha ging 03/28/2024 10:5 4 AM EDT Narrative 03/28/2024 11:37 AM EDT [facility] Diagnostic Imaging Department [address] [place] [address] Patient: CYNDIBURKEPRINCESS PEREZ D.O.B./Age/Sex: 1945 - 78 - F Unit#: [id number] Location/Status: SPDIGEN/REG CLI Mnemonic/Ordering Site: [facility] Ordering Physician: KISHAN FLYNN MD DR Abdomen Flat and Erect - 03/28/24 - 1111 Report Status:Signed HISTORY: The patient is a 78-year-old female with periumbilical pain. FINDINGS: Supine and erect views of the abdomen demonstrate degenerative changes of the lumbar spine. The patient is seen to have undergone previous percutaneous augmentation of a compression fracture of the T12 vertebral body. The bowel gas pattern is nonobstructive. The volume of fecal material is not unusually increased. No mass or radiopaque calculus is seen. IMPRESSION: Nonobstructive bowel gas pattern. Code 05678 Dictating Physician: YESI KULKARNI MD Electronically Signed by: YESI KULKARNI MD Dic Date/Time: 03/28/24 1136 Sign date/Time: 03/28/24 1137 Procedure Note Yesi Kulkarni MD - 03/29/2024 [facility] Diagnostic Imaging Department [address] [place] [address] Patient: PRINCESS EUCEDA Melissa North./Age/Sex: 1945 - 78 - F Unit#: [id number] Location/Status: SPDIGEN/REG CLI Mnemonic/Ordering Site: [facility] Ordering Physician: KISHAN FLYNN MD DR Abdomen Flat and Erect - 03/28/24 - 1111 Report Status:Signed HISTORY: The patient is a 78-year-old female with periumbilical pain. FINDINGS: Supine and erect views of the abdomen demonstrate degenerative changes of the lumbar spine. The patient is seen to have undergoneprevious percutaneous augmentation of a compression fracture of the T12 vertebralbody. The bowel gas pattern is nonobstructive. The volume of fecal material isnot unusually increased. No mass or radiopaque calculus is seen. IMPRESSION: Nonobstructive bowel gas pattern. Code 88522 Dictating Physician: YESI KULKARNI MD Electronically Signed by: YESI KULKARNI MD Dic Date/Time: 03/28/24 1136 Sign date/Time: 03/28/24 1137 Kishan Flynn MD IMG XR PROCEDURES Final Result documented in this encounter Visit Diagnoses Not on filedocumented in this encounter Additional Health Concerns Infection Onset Date Last Indicated Resolved Time C. difficile Rule-Out 04/02/2024 04/02/20242023 9:49 AM EST Gastrointestinal Rule-Out 04/04/2024 04/04/2024 12:53 PM EST C. difficile Rule-Out 04/04/2024 04/04/20242023 11:40 AM EST C. difficile Rule-Out 04/04/2024 04/04/20242023 1:35 PM EST C. difficile Rule-Out 04/04/2024 04/04/20242023 2:05 PM EST documented as of this encounter Care Teams Access Liaison Relationship Specialty Start Date End Date Zeke Carlos MD [address] [place] [address] PCP - General Internal Medicine 03/16/21 05/13/25 documented as of this encounter
--- OUTSIDE RECORDS SUMMARY | 2025-05-11 11:00 | XMS_ITS | Encounter Summary ---
Author Organization [facility] Address [address] [place] [address] Care Team Providers Care Powder Coater Name Role Phone Zeke Carlos MD Primary Care Provider [phone] Reason for Referral * Imaging (Routine) - Pending Review Specialty Diagnoses / Procedures Referred By Contac t Referred To Contact Radiology Diagnoses PAD (peripheral artery disease) (CMS/HCC V24) Mesenteric ischemia (CMS/HCC V24) Superior mesenteric artery stenosis (CMS/HCC V24) Chronic mesenteric ischemia (CMS/HCC V24) Procedures Vascular US duplex aorta/IVC/iliac/grafts complete Ronen Vernon MD [address] [address] Phone: tel: fax: [facility] Xray [address] [place] [address] Phone: tel: Referral ID Status Reason Start Date Expiration Date V isits Requested Visits Authorized [id number] Pending Review 05/11/2025 05/11/2026 1 1 * [...] Vernon MD [address] [place] [address] Phone: tel: fax: [facility] [place] [address] Phone: tel: Referral ID Status Reason Start Date Expiration Date V isits Requested Visits Authorized [id number] Pending Review 05/11/2025 05/11/2026 1 1 Reason for Visit * Reason Comments Peripheral Vascular Disease Encounter Details Date Type Department Care Team (Late st Contact Info) Description 05/11/2025 11:00 AM EST Office Visit Vascular Surgery - [place] [address] [place] [phone] Ronen Vernon MD [address] [place] [phone] PAD (peripheral artery disease) (CMS/HCC V24) [...] care for your loved ones. For example, children librarian or elderly care for an older adult? [...] extremity arteries bilateral with NICK Accession Number: [id number] Date of Study: 04/08/2025 Ordering Provider: Ronen Vernon MD Clinical Indications: peripheral vascular disease Reading Physicians Performing Staff Cardiology: Mikie Lal MD Tech: Nidia Nuñez Patient Information Patient Name Carmen Grace Legal Sex Female (79 y.o.) Diagnosis Priority: Routine Atherosclerosis [I70.90 (ICD-10-CM)]; PAD (peripheral artery disease) ([facility] V24) [I73.9 (ICD-10-CM)] PACS Images Show images [...] 169 cm/s Right Lower Arterial Measurements PSV ORCHARD HAND Prox 322 cm/s PFA 307 cm/s SFA Prox 127 cm/s SFA Mid 125 cm/s SFA Dist 157 cm/s Pop Prox 96 cm/s Pop Dist 89 cm/s SHUT OFF WORKER Prox 61 cm/s SHUT OFF WORKER Mid 48 cm/s SHUT OFF WORKER Dist 21 cm/s QUEENIE Prox 112 cm/s QUEENIE Mid 73 cm/s QUEENIE Dist 57 cm/s Peroneal Mid 64 cm/s Left Lower Arterial Measurements PSV ORCHARD HAND Prox 463 cm/s PFA 262 cm/s SFA Prox 133 cm/s SFA Mid 221 cm/s SFA Dist 147 cm/s Pop Prox 103 cm/s Pop Dist 72 cm/s SHUT OFF WORKER Prox 59 cm/s SHUT OFF WORKER Mid 59 cm/s SHUT OFF WORKER Dist 49 cm/s QUEENIE Prox 72 cm/s [...] Angio Abdominal Aorta w Runoff ( (Order [id number]) Status: Final result PACS Images Show images [...] Signed Date: 05/08/2025 10:59 ET Workstation ID: [id number] Transcribed By: Self Edit Transcribed Date: 05/08/2025 10:31 ET * Ronen Vernon MD - 05/11/2025 11:00 AM EST Images from the original note were not included. PATIENT: Carmen Grace ENCOUNTER: 05/11/2025 EMRN: [id number] : 1945 PCP: Zeke Carlos MD CHIEF [...] bovine pericardial patch angioplasty on 01/25/2023 at [facility]. She has bilaterallower extremity arterial duplex which showed bilateral 50 to 99% ORCHARD HAND stenosis. She was complaining of bilateral calf [...] post dilation by 7 mmx 20 mm [place] balloon on 06/24/2024. She says that ever [...] SURGERY OTHER SURGICAL HISTORY Bilateral 12/26/2022 PROCEDURE: [place] REVASCULARIZATION ILIAC ARTERY ANGIOP 1ST VSL OTHER SURGICAL HISTORY Bilateral 12/26/2022 PROCEDURE: [place] REVASC INTRAVASC LITHOTRIPSY OTHER SURGICAL HISTORY Left 01/25/2023 PROCEDURE: [place] TEAEC W/GRAFT POPLITEAL ARTERY OTHER SURGICAL HISTORY 07/03/2023 PROCEDURE: [place] REVSC OPN/PRG FEM/POP W/ANGIOPLASTY UNI OTHER SURGICAL HISTORY 07/03/2023 PROCEDURE: [place] INTRAVASCULAR US NONCORONARY RS&I INTIAL VESSEL OTHER SURGICAL HISTORY 07/03/2023 PROCEDURE: [place] INTRAVASCULAR US NONCORONARY RS&I ADDL VESSEL OTHER SURGICAL HISTORY 07/03/2023 PROCEDURE: ULTRASOUND GUIDANCE FOR VASCULAR AC OTHER SURGICAL HISTORY Left 10/24/2023 PROCEDURE: [place] THORACOSCOPY W/LOBECTOMY SINGLE LOBE; COMMENT: KENNY MEDICATIONS: [...] And Vomiting, Dizziness, GI intolerance and Unknown Gntwbbz-Lhi-Xwf Reductase Inhibitors Muscles aches Cephalexin Diarrhea, Nausea [...] Angio Abdominal Aorta w Runoff ( (Order [id number]) Status: Final result PACS Images Show images [...] Signed Date: 05/08/2025 10:59 ET Workstation ID: [id number] Transcribed By: Self Edit Transcribed Date: 05/08/2025 10:31 ET Carmen Grace Melissa Procedures: Vascular US duplex lower extremity arteries bilateral with NICK Accession Number: [id number] Date of Study: 04/08/2025 Ordering Provider: Ronen Vernon MD Clinical Indications: peripheral vascular disease Reading Physicians Performing Staff Cardiology: Mikie Lal MD Tech: Nidia Nuñez Patient Information Patient Name Carmen Grace Legal Sex Female (79 y.o.) Diagnosis Priority: Routine Atherosclerosis [I70.90 (ICD-10-CM)]; PAD (peripheral artery disease) ([facility] V24) [I73.9 (ICD-10-CM)] PACS Images Show images [...] 169 cm/s Right Lower Arterial Measurements PSV ORCHARD HAND Prox 322 cm/s PFA 307 cm/s SFA Prox 127 cm/s SFA Mid 125 cm/s SFA Dist 157 cm/s Pop Prox 96 cm/s Pop Dist 89 cm/s SHUT OFF WORKER Prox 61 cm/s SHUT OFF WORKER Mid 48 cm/s SHUT OFF WORKER Dist 21 cm/s QUEENIE Prox 112 cm/s QUEENIE Mid 73 cm/s QUEENIE Dist 57 cm/s Peroneal Mid 64 cm/s Left Lower Arterial Measurements PSV ORCHARD HAND Prox 463 cm/s PFA 262 cm/s SFA Prox 133 cm/s SFA Mid 221 cm/s SFA Dist 147 cm/s Pop Prox 103 cm/s Pop Dist 72 cm/s SHUT OFF WORKER Prox 59 cm/s SHUT OFF WORKER Mid 59 cm/s SHUT OFF WORKER Dist 49 cm/s QUEENIE Prox 72 cm/s [...] Pelvis wo and/or w Contrast Accession Number: [id number] Date of Study: 09/16/24 Ordering Provider: Ronen Vernon MD Clinical Indications: mesenteric artery stenosis, mesenteric artery stenosis Reading Physicians Performing Staff Radiology: Moises Landers MD Tech: Steffanie Elam Space Planner: Sharlene Gil Patient Information Patient Name Carmen [...] Signed Date: 09/17/2024 09:48 ET Workstation ID: [id number] Transcribed By: Self Edit Transcribed Date: 09/16/2024 18:01 ET Carmen Torres Kathleencorby Vascular US duplex pseudoaneurysm check groin right Order# [id number] Reading physician: Piper Robles MD Ordering provider: GEMA aKte Study date: 06/26/24 Patient Information Patient Name Carmen Grace Legal Sex Female (78 y.o.) Reason for Exam Priority: Routine right groin pain, firm to palpation, s/p angiogram on 06/24; right groin pain, firm to palpation, s/p angiogram on 06/24 Dx: Right groin pain [R10.31 (ICD-10-CM)]; PAD (peripheral artery disease) ([facility]) [I73.9 (ICD-10-CM)]; Chronic mesenteric ischemia ([facility]) [K55.1 (ICD-10-CM)] PACS Images Show images for Vascular US duplex pseudoaneurysm check groin right Procedure Assistant Warehouse Manager/Clinician: Yvonne Whatley Supporting Staff: Performing Physician/Midlevel: None [...] -------- FINAL REPORT -------- Dictated By: Piper Robels Dictated Date: 06/26/2024 15:31 ET Assigned Physician: Piper Robles Reviewed and Electronically Signed By: Piper Robles Signed Date: 06/26/2024 15:33 ET Workstation ID: [id number] Transcribed By: Self Edit Transcribed Date: 06/26/2024 15:[address] Abdomen Pelvis w Contrast ( (Order [id number]) Status: Final result Narrative & Impression EXAMINATION: [...] Signed Date: 05/13/2024 13:59 ET Workstation ID: [id number] Transcribed By: Self Edit Transcribed Date: 05/13/2024 13:28 Diagnostic Imaging Department [address] [place] [address] Patient: CARMEN GRACE /Age/Sex: 1945 - 77 - F Unit#: [id number] Location/Status: SPER/REG ER Mnemonic/Ordering Site: [facility] Ordering Physician: ORQUIDEA BRIDGES PA-C CT Ang Abd and Pel W WO or W - 08/08/231805 Report Status:Signed CT angiography of the abdomen and pelvis with IV contrast. COMPARISON: None. FINDINGS: Aidwnalg-ik-tybiyx atherosclerotic plaque present along the visualized lower [...] advanced degenerative changes of the bilateral hips, lqgbi-adpzwqy-ojmr-left. No acute fracture. IMPRESSION: 1. No evidence [...] MD Dic Date/Time: 08/08/231841 Sign date/Time: 08/08/23 [id number] 0 [facility] Diagnostic Imaging Department [address] [place] [address] Patient: CARMEN GRACE /Age/Sex: 1945 - 77 - F Unit#: [id number] [facility] Ordering Physician: LONNIE SAMS PA-C Leg [...] Dic Date/Time: 06/14/23 1007 Sign date/Time: 06/14/23 [id number] 0 Bilateral lower extremity arterial duplex with ABIs, 12/06/22: Right: NICK 0.83. TBI 0.46. Biphasic waveforms seen throughout the arterial tree. Moderate 20-49% stenosis of right ORCHARD HAND. Three-vessel runoff in the right calf. Left: NICK 0.47. TBI 0.32. Biphasic waveforms present from the external iliac artery to the superficial femoral artery. Monophasic waveforms present after the popliteal artery with three-vessel runoffdistally. Moderate 20-49% left ORCHARD HAND stenosis. Severe 50-99% left SFA stenosis. Three-vessel [...] Description 04/06/2026 10:00 AM EST Office Visit [facility] Hematology Oncology [address] [place] [address] Kathy Rene, DO [address] [place] [address] 04/13/2026 12:00 PM EST Ancillary Procedure [facility] Cardiology [facility] [address] [facility] [address] [place] [address] 04/14/2026 8:30 AM EST Ancillary Procedure [facility] Cardiology [facility] [address] [facility] [address] [place] [address] 05/14/2026 10:30 AM EST Office Visit Vascular Surgery - [place] [address] [facility] [address] [place] [address] Ronen Vernon MD [address] [place] [phone] Scheduled Orders Name Type Priority Associated Diagnoses [...] Visit Diagnoses Diagnosis PAD (peripheral artery disease) ([facility] V24)- Primary Unspecified peripheral vascular disease Mesenteric ischemia ([facility]/HCC V24) Superior mesenteric artery stenosis (CMS/HCC V24) Stricture of artery Chronic mesenteric ischemia (CMS/HCC V24) Chronic vascular insufficiency of intestine documented in this encounter Additional Health Concerns Assessment Noted Time PHQ-9 Depression Total Score: 8 09/10/19 25 7:31 PM EDT documented as of this encounter Care Teams Powder Coater Relationship Specialty Start Date End Date Zeke Carlos MD [address] [place] [address] PCP - General Internal Medicine 03/16/21 05/13/25 documented as of this encounter
--- OUTSIDE RECORDS SUMMARY | 2025-05-14 10:30 | XMS_ITS | Encounter Summary ---
Author Organization [facility] Address [address] [place] [address] Care Team Providers Care Water Softener Installer Name Role Phone Adriel Shelley MD Primary Care Provider [phone] Reason for Visit * Reason Comments Follow-up Chest CT Encounter Details Date Type Department Care Team ([facility] st Contact Info) Description 05/14/2025 10:30 AM EST Office Visit Thoracic Surgery - [address] [place] [phone] Raine Ballard PA [address] [place] [phone] Social History Tobacco Use Types Packs/Day Years [...] your loved ones. For example, child care education coordinator or elderly care for an [...] Description 04/06/2026 10:00 AM EST Office Visit [facility] Hematology Oncology [address] [place] [address] Kathy Rene, [address] [place] [address] 04/13/2026 12:00 PM EST Ancillary Procedure [facility] Associates - [address] [place] [address] 04/14/2026 8:30 AM EST Ancillary Procedure [facility] Cardiology Associates - [facility] [address] [facility] [address] [place] [address] 05/14/2026 10:30 AM EST Office Visit Vascular Surgery - [place] [address] [place] [address] Ronen Vernon MD [address] [place] [phone] documented as of this encounter Visit Diagnoses Not on filedocumented in this encounter Additional Health Concerns Assessment Noted Time PHQ-9 Depression Total Score: 8 09/10/19 25 7:31 PM EDT documented as of this encounter Care Teams Water Softener Installer Relationship Specialty Start Date End Date Adriel Shelley MD [address] [place] [address] [address] [place] [address] PCP - General Internal Medicine 05/14/25 documented as of this encounter
--- OUTSIDE RECORDS SUMMARY | 2025-05-16 11:04 | XMS_ITS | Clinical Summary ---
Author Organization [facility] Address [address] [place] [address] Phone Care Team Providers Care Sanding Machine Tender Automatic Name Role Phone Adriel Shelley MD Primary Care Provider [phone] Allergies Active Allergy Reactions Criticality Noted Date Comments Cephalexin Diarrhea,Nausea Only,GI intolerance,Unknown 03/27/2018 Codeine Nausea And Vomiting,Dizziness,GI intolerance,Unknown Medium 04/26/2016 Epinephrine 05/20/2024 Levofloxacin Diarrhea,Nausea Only,GI intolerance,Unknown 03/27/2018 Plpmyjm-Nrd-Exc Reductase Inhibitors Medium 06/04/2019 Muscles aches Medications [...] Overview (08/06/2023): S/p kyphoplasty 10/2018 follows with [facility] Essential hypertension 11/25/2018 Overview (08/06/2023): [...] general and how their size, shape, and foreign exchange trader time determine her level of suspicion for [...] general and how their size, shape, and foreign exchange trader time factor level of suspicion for malignancy. [...] We will also have her see a unit aide tech for a risk assessment given she has [...] and radiation Follows with [facility] Oncology Encounters Date Type Department Care Team Description 05/14/2025 10:30 AM EST Office Visit Thoracic Surgery - [place] [address] [place] [address] Raine Ballard PA 05/11/2025 11:00 AM EST Office Visit Vascular Surgery - [place] [address] [place] [address] Ronen Vernon MD PAD (peripheral artery disease) (CMS/HCC V24) (Primary Dx); Mesenteric ischemia (CMS/HCC V24); Superior mesenteric artery stenosis (CMS/HCC V24); Chronic mesenteric ischemia (CMS/HCC V24) 05/08/2025 9:11 AM EST - 05/08/2025 11:59 PM EST Hospital Encounter [facility] CT Scan [address] [place] [phone] PAD (peripheral artery disease) ([facility] V24); S/P angioplasty with stent Discharge Disposition: Home or Self Care 05/08/2025 9:10 AM EST - 05/08/2025 11:59 PM EST Hospital Encounter [facility] CT Scan [address] [place] [phone] History of lung cancer; Multiple pulmonary nodules Discharge Disposition: Home or Self Care 05/08/2025 Results Follow-Up Vascular Surgery - [place] [address] [place] [address] Celi Reyez PA 04/15/2025 Results Follow-Up Vascular Surgery [facility] [address] [place] [address] Peggy Cordoba PA 04/13/2025 11:15 AM EST Lab Draw Station - [address] [place] [phone] PAD (peripheral artery disease) ([facility] V24); S/P angioplasty with stent 04/13/2025 10:30 AM EST Office Visit Vascular Surgery [facility] [address] [place] [address] Ronen Vernon MD PAD (peripheral artery disease) ([facility] V24) (Primary Dx); S/P angioplasty with stent 04/08/2025 10:00 AM EST Ancillary Procedure [facility] [address] [place] [phone] Atherosclerosis; PAD (peripheral artery disease) ([facility] V24) 04/06/2025 10:00 AM EST Office Visit [facility] Hematology Oncology [address] [place] [phone] Kathy Rene DO Primary cancer of left upper lobe of lung ([facility]/HCC V24, CMS/[facility] V28) (Primary Dx) 03/10/[address] [phone] Rossi Carlos MD 03/09/2025 1:57 PM EDT - 03/09/2025 11:59 PM EDT Hospital Encounter [address] [phone] Neck pain; Acute right ankle pain Discharge Disposition: Home or Self Care 03/09/2025 1:30 PM EDT Office Visit [address] [phone] Marquis Cardona NP Neck pain (Primary Dx); Acute right ankle pain; Essential hypertension 03/09/2025 Results Follow-Up [address] [phone] Marquis Cardona NP 03/09/2025 Telephone Adult [address] [phone] Rossi Carlos MD from Last 3 Months [...] bx.-benign OTHER SURGICAL HISTORY 12/26/2022 Bilateral PROCEDURE: [place] REVASCULARIZATION ILIAC ARTERY ANGIOP 1ST VSL OTHER SURGICAL HISTORY 12/26/2022 Bilateral PROCEDURE: [place] REVASC INTRAVASC LITHOTRIPSY OTHER SURGICAL HISTORY 01/25/2023 Left PROCEDURE: AZ TEAEC W/GRAFT POPLITEAL ARTERY OTHER SURGICAL HISTORY 07/03/2023 PROCEDURE: [place] REVSC OPN/PRG FEM/POP W/ANGIOPLASTY UNI OTHER SURGICAL HISTORY 07/03/2023 PROCEDURE: AZ INTRAVASCULAR US NONCORONARY RS&I INTIAL VESSEL OTHER SURGICAL HISTORY 07/03/2023 PROCEDURE: [place] INTRAVASCULAR US NONCORONARY RS&I ADDL VESSEL OTHER SURGICAL HISTORY 07/03/2023 PROCEDURE: ULTRASOUND GUIDANCE FOR VASCULAR AC OTHER SURGICAL HISTORY 10/24/2023 Left PROCEDURE: [place] THORACOSCOPY W/LOBECTOMY SINGLE LOBE; COMMENT: KENNY Medical [...] and radiation Follows with [facility] Oncology Anxiety DX:Anxiety Depression 05/19/2015 DX:Depression [...] Quit 12/2017 Compression fracture of T12 vertebra ([facility] V24, [facility] V28) 02/25/2019 DX:Compression fracture of T12 vertebra ([facility]); COMMENT: S/p kyphoplasty 10/2018 [facility] History of lung cancer 03/13/2022 DX:Histor y of lung cancer Chest pain 09/26/2023 DX:Chest pain Pre-op exam 09/26/2023 DX:Pre-op exam Vocal cord paralysis left Primary cancer of right uppe r lobe of lung ([facility] V24, [facility] V28) 02/21/2022 Family History Medical History Relation [...] care for your loved ones. For example, school childcare attendant or elderly care for an older adult? [...] Description 04/06/2026 10:00 AM EST Office Visit [facility] Hematology Oncology [address] [place] [address] Kathy Rene DO [address] [place] [address] 04/13/2026 12:00 PM EST Ancillary Procedure [facility] [address] [address] 04/14/2026 8:30 AM EST Ancillary Procedure [facility] [address] [address] 05/14/2026 10:30 AM EST Office Visit Vascular Surgery - [place] [address] [facility] [address] [place] [address] Ronen Vernon MD [address] [place] [phone] Health Maintenance Due Date Last Done Comments [...] this topic Medical Devices Implanted Type Area Roofing Plant Supervisor Device Identifier Shelf Expiration Date Model / Serial / Lot Stent Graft Endovas 6x19mm 6f 135cm - [id number] - [id number] Implanted:Qty : 1 on 06/24/2024 by Ronen Vernon MD at [facility] Peripheral Vasc Drug Coated Stents N/A: Arterial [employer] [id number] 01/28/2027 [id number] / [id number] / Procedures Procedure Name Priority Date/Time Associated Diagnosis Comments CT ANGIO ABDOMINAL AORTA W RUNOFF STAT 05/08/2025 9:58 AM EST PAD (peripheral artery disease) ([facility] V24) S/P angioplasty with stent CT CHEST WO CONTRAST Routine 05/08/2025 9:54 AM EST History of lung cancer Multiple pulmonary nodules EXTERNAL XRAY REPORT 05/06/2025 EXTERNAL XRAY REPORT 05/06/2025 EXTERNAL CLINICAL LAB 04/29/2025 BUN Routine 04/13/2025 11:14 AM EST PAD (peripheral artery disease) ([facility] V24) S/P angioplasty with stent CREATININE, SERUM Routine 04/13/2025 11: 14 AM EST PAD (peripheral artery disease) ([facility] V24) S/P angioplasty with stent VAS US DUPLEX LOWER EXT ARTERIES BILAT WITH NICK Routine 04/08/2025 10:51 AM EST Atherosclerosis PAD (peripheral artery disease) ([facility] V24) EXTERNAL XRAY REPORT 03/11/2025 EXTERNAL XRAY REPORT 03/11/2025 XR CERVICAL SPINE 4-5 VIEWS Routine 03/09/2025 2:04 PM EDT Neck pain Acute right ankle pain LIPID PANEL WITH REFLEX TO DIRECT LDL Routine 01/30/2025 12:20 PM EDT Other hyperlipidemia [facility] DEXA AXIAL SKELETON Routine 09/28/2022 [...] Signed Date: 05/08/2025 10:59 ET Workstation ID: [id number] Transcribed By: Self Edit Transcribed Date: 05/08/2025 [...] Signed Date: 05/08/2025 10:59 ET Workstation ID: [id number] Transcribed By: Self Edit Transcribed Date: 05/08/2025 10:31 ET Ronen Vernon MD IMG CT PROCEDURES Final Result * CT Chest [...] Signed Date: 05/11/2025 13:10 ET Workstation ID: [id number] Transcribed By: Self Edit Transcribed Date: 05/11/2025 [...] semisolid nodule in the right upper lobe [id number] mm, stable compared to prior. Scarring along [...] Signed Date: 05/11/2025 13:10 ET Workstation ID: [id number] Transcribed By: Self Edit Transcribed Date: 05/11/2025 13:05 ET Raine RIBEIRO IMG CT PROCEDURES Final Resul t * External Xray Report (05/06/2025) Only the most recent of4 resultswithin the time period is included. Anatomical Region Laterality Modality Radiographic Leatha ging Provider [facility] IMG XR PROCEDURES Final Result * External clinical lab (04/29/2025) Provider [facility] LAB BLOOD ORDERABLES Fin al Result * [...] lt Performing Organization Address [facility]/ZIP Co de Phone Number [facility] [address] [place] [address], [place] [phone] * BUN (04/13/2025 11:14 AM EST) [facility] BUN 18 5 - 25 mg/dL LAB CHEMISTRY METHOD 04/13/2025 1:39 PM EST [facility] Blood Venous blood specimen / Unknown Venipuncture / Unknown 04/13/2025 11:14 AM EST 04/13/2025 11:57 AM EST us Ronen Vernon MD LAB BLOOD ORDERABLES Final Resu lt Performing Organization Address City/[facility]/ZIP Co de Phone Number [facility] [address] [place] [address], [place] [phone] * Vascular US duplex lower extremity arteries [...] PSV 72 cm/s CV VAS LAB Left COMPATIBILITY TEST ENGINEER prox sys PSV 463 cm/s CV VAS [...] PSV 112 cm/s CV VAS LAB Right COMPATIBILITY TEST ENGINEER prox sys PSV 322 cm/s CV VAS [...] The mid peroneal artery has biphasic flow. Real Estate Processor Details A tamayo scale, color and doppler analysis ultrasound was performed. During the study longitudinal views were obtained. Continuous wave doppler, pulsed wave doppler and pulsed volume recording (PVR) was performed. Overall the study quality was good. us Ronen Vernon MD CV VASCULAR PROCEDURES Final Re sult * XR Cervical Spine 4-5 Views (03/09/2025 [...] Signed Date: 03/09/2025 15:32 ET Workstation ID: [id number] Transcribed By: Self Edit Transcribed Date: 03/09/2025 [...] Signed Date: 03/09/2025 15:32 ET Workstation ID: [id number] Transcribed By: Self Edit Transcribed Date: 03/09/2025 15:22 ET us Marquis Cardona FIREMAN IMG XR PROCEDURES Final Resu lt * [...] EDT 01/30/2025 12:20 PM EDT us Rossi aCrlos MD LAB BLOOD ORDERABLES Final Resul t [facility] [address] [place] [address], [place] [phone] * CARMEN DEXA AXIAL SKELETON (09/28/2022 4:50 PM EDT) Anatomical Region Laterality Modality Mammography 09/27/2022 9:52 AM EDT Narrative 09/28/2022 4:50 PM EDT [facility] Diagnostic Imaging Department [address] [place] [address] Patient: CARMEN GRACE D.O.B./Age/Sex: 1945 - 76 - F Unit#: [id number] Location/Status: SPDIMAM/REG CLI Mnemonic[facility] Ordering Physician: ROSSI CARLOS MD Carmen Dexa Axial Skeleton - 09/27/22 - 1041 History: Low estrogen state due to menopause. Current smoker. Parent hip fracture. Chronic glucocorticoid use. Adult fracture (ankle, heel, wrist). On omeprazole. Comparison: 02/02/16 Findings: Bone densitometry is performed utilizing dual energy x-ray absorptiometry (DXA) in the [employer] unit. The lumbar spine and proximal femora [...] 55.9 percent Hip 44.4 percent. IMPRESSION: Osteopenia. [id number] Dictating Physician: CHANTELLE MENDEZ MD Electronically Signed by: CHANTELLE MENDEZ MD Dic Date/Time: 09/28/22 1648 Sign date/Time: 09/28/22 1650 Procedure Note Chantelle Mendez MD - 06/29/2023 [facility] Diagnostic Imaging Department [address] [place] [address] Patient: CARMEN GRACE /Age/Sex: 1945 - 76 - F Unit#: [id number] Location/Status: SPDIMAM/REG CLI Mnemonic/Ordering Site: [facility] Ordering Physician: ROSSI CARLOS MD [facility] Dexa Axial Skeleton - 09/27/22 - 1042 History: Low estrogen state due to menopause. Current smoker. Parent hip fracture. Chronic glucocorticoid use. Adult fracture (ankle, heel, wrist).On omeprazole. Comparison: 02/02/16 Findings: Bone densitometry is performed utilizing dual energy x-ray absorptiometry(DXA) in the [employer] unit. The lumbar spine and proximal femora [...] 55.9 percent Hip 44.4 percent. IMPRESSION: Osteopenia. [address]1004 Dictating Physician: CHANTELLE MENDEZ MD Electronically Signed by: CHANTELLE MENDEZ MD Dic Date/Time: 09/28/22 164 Sign date/Time: 09/28/22 1650 Rossi Carlos MD IM BI PROCEDURES Final Result * Colonoscopy (08/31/2017) [...] currently active code status orders. Care Teams Sanding Machine Tender Automatic Relationship Specialty Start Date End Date Adriel Shelley MD [address] [place] [address] [address] SÁNCHEZ Torres [address] PCP - General Internal Medicine 05/14/25
--- OUTSIDE RECORDS SUMMARY | 2025-05-16 11:04 | XMS_ITS | Data Portability ---
Author Organization [facility], [address] Address [address] [place] [address] Assessment No assessment recorded. Plan of Treatment [...] ICD10 Code Diagnosis IMO Codes Diagnosis Note [id number] [address] [place] [address] 02/23/2015 18:35:56 02/23/2015 20:03:19 [id number] [address] [place] [address] 06/05/2017 12:16:53 06/05/2017 13:08:15 [id number] [address] [place] [address] 07/15/2018 19:22:28 07/15/2018 20:29:19 [id number] [address] [place] [address] 12/03/2018 19:26:40 12/03/2018 20:00:04 [id number] [address] [place] [address] 10/23/2020 13:41:04 10/23/2020 14:57:33 [id number] [address] [place] [address] 12/10/2018 19:42:18 12/10/2018 19:55:53 [id number] [address] [place] [address] 10/01/2016 13:08:27 10/01/2016 13:34:25 [id number] [address] [place] [address] 06/03/2018 11:29:30 06/03/2018 11:59:16 [id number] [address] [place] [address] 12/21/2016 12:07:00 12/21/2016 12:48:29 [id number] [address] [place] [address] 10/10/2020 10:26:24 10/10/2020 11:58:18 [id number] [address] [place] [address] 11/03/2016 10:21:59 11/03/2016 11:11:27 Health Concerns Section Related Observation LastModified by Organization Detai ls LastModified Time None Recorded Concern Status LastModified by Organization Details LastModified Time None Recorded Advance Directives Directive None Recorded Payers Insurance Date Sequence Insurance Name Policy Number Policy Jenkins Covered Member ID Jenkins Member ID Guarantor Name 06/30/2022 1 [facility] [id number] 01 Carmen Grace [id number] Carmen Grace OBGyn Episode No OBEpisode recorded.
--- OUTSIDE RECORDS SUMMARY | 2025-05-16 11:04 | XMS_ITS | Encounter Summary ---
Author Organization [facility] Address [address] [place] [address] Care Team Providers Care Barbering Teacher Name Role Phone Adriel Shelley MD Primary Care Provider [phone] Encounter Details Date Type Department Care Team ([facility] Contact Info) Description 04/15/2025 Results Follow-Up Vascular Surgery - [place] [address] [place] [phone] Peggy Cordoba PA [address] [facility] [address] [place] [address] Social History Tobacco Use Types Packs/Day Years [...] your loved ones. For example, child care assistant or elderly care for an older [...] Description 04/06/2026 10:00 AM EST Office Visit [facility] Hematology Oncology [address] [place] [address] Kathy Reneie, DO [address] [place] [address] 04/13/2026 12:00 PM EST Ancillary Procedure [facility] Card[facility] [address] [facility] [address] [place] [address] 04/14/2026 8:30 AM EST Ancillary Procedure [facility] [address] [facility] [address] [place] [address] 05/14/2026 10:30 AM EST Office Visit Vascular Surgery - [place] [address] [facility] [address] [place] [address] Ronen Vernon MD [address] [place] [phone] documented as of this encounter Visit Diagnoses Not on filedocumented in this encounter Additional Health Concerns Assessment Noted Time PHQ-9 Depression Total Score: 8 09/10/19 25 7:31 PM EDT documented as of this encounter Care Teams Barbering Teacher Relationship Specialty Start Date End Date Adriel Shelley MD [address] [place] [address] [address] [place] [address] PCP - General Internal Medicine 05/14/25 documented as of this encounter
--- OUTSIDE RECORDS SUMMARY | 2025-05-16 11:04 | XMS_ITS ---
Author Organization [facility] Address [address] [place] [address] Phone Care Team Providers Care Horticulture Worker Name Role Phone Adriel Shelley MD Primary Care Provider [phone] Active Problems Problem Noted Date Diagnosed Date [...] Overview (08/06/2023): S/p kyphoplasty 10/2018 follows with [facility] Essential hypertension 11/25/2018 Overview (08/06/2023): Last Assessment [...] general and how their size, shape, and bracelet form coverer time determine her level of suspicion for [...] general and how their size, shape, and bracelet form coverer time factor level of suspicion for malignancy. [...] We will also have her see a community service manager for a risk assessment given she has [...] lobe resection and radiation Follows with [facility]
--- OUTSIDE RECORDS SUMMARY | 2025-05-16 11:05 | XMS_ITS | Encounter Summary ---
Author Organization [facility] Prior to 10/25/[address] [place] [address] Care Team Providers Care Property Staff Accountant Name Role Phone Zeke Carlos MD Primary Care Provider [phone] Encounter Details Date Type Department Care Team Description 02/18/2024 Nurse Only [facility] Oncology Services [address] [place] [address] Smita Martinez RN Social History Tobacco Use [...] on filedocumented in this encounter Care Teams Property Staff Accountant Relationship Specialty Start Date End Date Zeke Carlos MD PCP - General Internal Medicine 11/23/21 documented as of this encounter
--- OUTSIDE RECORDS SUMMARY | 2025-05-16 11:05 | XMS_ITS | Encounter Summary ---
Author Organization [facility] Prior to 10/25/[address] [place] [address] Care Team Providers Care Ethanol Operator Name Role Phone Zeke Carlos MD Primary Care Provider [phone] Encounter Details Date Type Department Care Team Description 04/25/2021 E-Visit [facility] Oncology Services [address] [place] [address] Aki Peña MD Social History Tobacco Use [...] on filedocumented in this encounter Care Teams Ethanol Operator Relationship Specialty Start Date End Date Zeke Carlos MD PCP - General Internal Medicine 11/23/21 documented as of this encounter
--- OUTSIDE RECORDS SUMMARY | 2025-05-16 11:05 | XMS_ITS | Clinical Summary ---
Author Organization [facility] Address [address] [place] [address] Phone Care Team Providers Care Manager Imaging Name Role Phone JeradParminder Ursula Angie DO [...] REPLACEMENT [employer] [place] [employer] H[facility] REPLACEMENT [facility] MEDICARE HMO REPLACEMENT [employer] [place] [employer] [place] REPLACEMENT Care Teams Manager Imaging Relationship Specialty Start Date End Date Ursula Alcala DO [address] [place] [address] PCP - General Internal Medicine 12/24/18 Additional Source Comments The information contained in this document represents components of the legal health record. It is not the complete legal health record.[facility]
--- OUTSIDE RECORDS SUMMARY | 2025-05-16 11:05 | XMS_ITS | Clinical Summary ---
Author Organization [facility] Prior to 10/25/[address] [place] [address] Care Team Providers Care Hand Bulldozer Name Role Phone Zeke Carlos MD Primary Care Provider [phone] Allergies Active Allergy Reactions Criticality Noted Date [...] age to complete this topic Care Teams Hand Bulldozer Relationship Specialty Start Date End Date Zeke Carlos MD PCP - General Internal Medicine 11/23/21
--- OUTSIDE RECORDS SUMMARY | 2025-05-16 11:05 | XMS_ITS | Encounter Summary ---
Author Organization [facility] Address [address] [place] [address] Care Team Providers Care Infant Childcare Provider Name Role Phone Adriel Shelley MD Primary Care Provider [phone] Encounter Details Date Type Department Care Team ([facility] st Contact Info) Description 05/08/2025 Results Follow-Up Vascular Surgery - [place] [address] [facility] [address] [place] [address] Celi Reyez PA [address] [place] [phone] Social History Tobacco Use Types Packs/Day Years [...] your loved ones. For example, children's tutor nursery or elderly care for an older adult? [...] Description 04/06/2026 10:00 AM EST Office Visit [facility] Hematology Oncology [address] [place] [address] Kathy Reneie, DO [address] [place] [address] 04/13/2026 12:00 PM EST Ancillary Procedure [facility] Cardiology [facility] - [facility] [address] [facility] [address] [place] [address] 04/14/2026 8:30 AM EST Ancillary Procedure [facility] Cardiology [facility] - [facility] [address] [facility] [address] [place] [address] 05/14/2026 10:30 AM EST Office Visit Vascular Surgery - [place] [address] [facility] [address] [place] [address] Ronen Vernon MD [address] [place] [phone] documented as of this encounter Visit Diagnoses Not on filedocumented in this encounter Additional Health Concerns Assessment Noted Time PHQ-9 Depression Total Score: 8 09/10/19 25 7:31 PM EDT documented as of this encounter Care Teams Infant Childcare Provider Relationship Specialty Start Date End Date Adriel Shelley MD [address] [place] [address] [address] [place] [address] PCP - General Internal Medicine 05/14/25 documented as of this encounter
--- OUTSIDE RECORDS SUMMARY | 2025-05-16 11:05 | XMS_ITS | Patient Health Record ---
Author Organization [facility] Address [address] [facility] [place] [address] Care Team Providers Care English Horn Player Name Role Phone Breanna VÁSQUEZ, Zeke Blake Primary Care Provider Unav ailable Black, Shiela Unavailable [phone] Allergies Allergen (clinical drug ingredient) Drug/Non Drug [...] Ulcer of toe of right foot (disorder) (035493315 [id number]) Skin ulcer of toe of right foot, limited to breakdown of skin (L97.511) Active confirmed Problem Ulcer of toe of left foot (disorder) (623892608 [id number]) Skin ulcer of toe of left foot, limited to breakdown of skin (L97.521) Active confirmed Nonapplicable Problem Skin ulcer of toe of right foot with fat layer exposed (L97.512) Active confirmed Problem Skin ulcer of toe of left foot with fat layer exposed (L97.522) Active confirmed Plan Of Treatment Pending Test Test Name Order Date [id number] Plate 03/09/2023 23580- Debride <25 sq cm 03/26/2023 Insurance Providers Payer Name Payer Address Payer Phone Subscriber Number Group Number Insured Name Patient Relationship to Insured Coverage Start Date Coverage End Date [employer] [address] [place] [address] [id number] Carmen Grace Self - patient is the insured Medical (General) History Medical History History ICD Code Anxiety Broken bones CAD (Cholesterol) Cancer Cataracts Depression High blood pressure Lung disease Reflux ( GERD) Vascular phlebitis (clots) Vascular grafts Joint implants/screws Surgical History Surgery Date(Month/Year) femoropopliteal bypass graft Gall bladder removal 2023 Lung Cancer Surgery 09/2023
[2025-05-16 12:28] LABS: Microalbum/Creatinine Ratio Ur 9.2 ug/mg cr (<30)
== END 2025-05-16 11:03 | disposition home or self-care (01) ==
LOC: HO.LNP 11:02
PROVIDERS: Visit Provider Student in an Organized Health Care Education/Training Program
DX: Z00.00 Encounter for general adult medical examination without abnormal findings (principal)
CPT/HCPCS: 82043; 82570

== ENCOUNTER 2025-05-26 13:56 | Outpatient (AMB) | payer MEDICARE, SELFPAY ==
--- OUTSIDE RECORDS SUMMARY | 2024-03-28 09:48 | XMS_ITS | Encounter Summary ---
Author Organization [facility] Address [address] [place] [address] Care Team Providers Care Automobile And Property Underwriter Name Role Phone Zeke Carlos MD Primary Care Provider [phone] Encounter Details Date Type Department Care Team (Late st Contact Info) Description 03/28/2024 10:48 AM EDT Hospital Encounter TH HISTORIC ENCOUN[facility]S [facility] Kishan Flynn MD [address] [place] [phone] Social History Tobacco Use Types Packs/Day Years [...] for your loved ones. For example, child care director or elderly care for an older adult? [...] Description 04/06/2026 10:00 AM EST Office Visit [facility] Hematology Oncology [address] [place] [address] Kathy Rene, DO [address] [place] [address] 04/13/2026 12:00 PM EST Ancillary Procedure [facility] Cardiology [facility] [address] [address] 04/14/2026 8:30 AM EST Ancillary Procedure [facility] 101 300 [facility] 101 [place] [address] 05/14/2026 10:30 AM EST Office Visit Vascular Surgery - [place] 300 [facility] 210 [place] [phone] Ronen Vernon MD [address] [place] [address] documented as of this encounter Procedures Procedure Name Priority Date/Time Associated Diagnosis Comments ABDOMEN FLAT AND ERECT Routine 03/28/2024 11:37 AM EDT documented in this encounter Results * ABDOMEN FLAT AND ERECT (03/28/2024 11:37 AM EDT) Anatomical Region Laterality Modality Radiographic Leatha ging 03/28/2024 10:5 4 AM EDT Narrative 03/28/2024 11:37 AM EDT [facility] Diagnostic Imaging Department [address] [place] [address] Patient: CYNDIBURKEPRINCESS PEREZ D.O.B./Age/Sex: 1945 - 78 - F Unit#: [id number] Location/Status: SPDIGEN/REG CLI Mnemonic/Ordering Site: [facility] Ordering [...] seen. IMPRESSION: Nonobstructive bowel gas pattern. Code 62949 Dictating Physician: YESI KULKARNI MD Electronically Signed by: YESI KULKARNI MD Dic Date/Time: 03/28/24 1136 Sign date/Time: 03/28/24 1137 Procedure Note Yesi Kulkarni MD - 03/29/2024 [facility] Diagnostic Imaging Department [address] [place] [address] Patient: PRINCESS EUCEDA Melissa North./Age/Sex: 1945 - 78 - F Unit#: [id number] Location/Status: SPDIGEN/REG CLI Mnemonic/Ordering Site: [facility] Ordering [...] seen. IMPRESSION: Nonobstructive bowel gas pattern. Code 28982 Dictating Physician: YESI KULKARNI MD Electronically Signed [...] documented as of this encounter Care Teams Automobile And Property Underwriter Relationship Specialty Start Date End Date Zeke Carlos MD [address] [place] [address] PCP - General Internal Medicine 03/16/21 05/13/25 documented as of this encounter
--- NOTE | 2025-05-26 14:06 | MHC.PC.OV ---
Vital Signs 05/26/25 14:08 Height 5 ft 2.75 in Weight 152 lb 6 oz BMI 27.2 BP 140/60 H Blood Pressure Location Lt brachial Position Sitting Respiration 16 Pulse 67 Pulse Source Pulse Oximeter Temp 96.7 F L Temp Source Temporal Artery Scan Pulse Oximetry (%) 97 Oxygen Delivery Method Room Air Intake Visit Reasons: Shortness of breath/ Ongoing pneumonia symptoms Emergency Room Nurse Required: No Accompanied by: Self / Same As Patient Allergies levofloxacin (From Levaquin) Allergy (Intermediate, Verified 05/26/25 14:08) diarrhea and vomiting codeine (CODEINE) Allergy (Unknown, Verified 05/26/25 14:08) STOMACH UPSET cephalexin (From Keflex) Adverse Reaction (Intermediate, Verified 05/26/25 14:08) Diarrhea and vomiting Medication List - Last Reconciled 05/26/25 by Adriel Shelley MD albuterol sulfate 90 mcg/actuation 1 inh inhalation Q4-6H PRN amlodipine 10 mg PO BID aspirin (Adult Aspirin Regimen) 81 mg PO DAILY benazepril 40 mg PO DAILY benzonatate 100 mg PO BID PRN bupropion HCl SR 150 mg PO BID 90 days cholecalciferol (vitamin D3) 1,250 mcg PO QWEEK 12 weeks clopidogrel 75 mg PO DAILY escitalopram oxalate 20 mg PO DAILY ezetimibe 10 mg PO DAILY montelukast 10 mg PO DAILY omeprazole 20 mg PO DAILY simvastatin 20 mg PO BEDTIME tiotropium bromide (Spiriva with HandiHaler) 1 cap inhalation DAILY Tobacco use date assessed: 05/15/25 Fall risk assessment: No Falls in past year Last assessed Fall Risk: 05/26/25 Dental Screening Dental Screen Date: 05/15/25 HPI HPI Comments History of Present Illness Details History of Present Illness The patient is a 79 year old female presenting with concerns about persistent symptoms following a recent diagnosis of pneumonia. She reports that when she tries to have a conversation, she runs out of air after five or six words, which she describes as a combination of loss of voice and lack of air. 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 Associated symptoms include a subsiding cough that produces clear phlegm, a sore throat, difficulty sleeping, and periodic shortness of breath even without exertion. She denies any fevers or chills and reports having completed a course of antibiotics for the pneumonia. She notes she has had RSV and her flu shot. Her past medical history is significant for an asthma-COPD overlap, for which she sees a thoracic surgeon, Dr. Nair, but does not have a dedicated wringer machine operator. She also has hypertension, a mood disorder, coronary artery disease with stents, gastroesophageal reflux, vitamin D deficiency, and hyperlipidemia. A review of recent lab work revealed an HbA1c of 6.1%, indicating prediabetes, a total cholesterol of 218 mg/dL, and an LDL of 118 mg/dL. She acknowledges a vitamin D deficiency. She reports avoiding processed foods like cold cuts due to their high salt content to manage her blood pressure. 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 - Respiratory Syncytial Virus (RSV) infection Surgical History: - History of coronary artery stent placement Medications: - Albuterol inhaler, used approximately three times a day for shortness of breath - Amlodipine 10 mg twice a day for hypertension - Benazepril 40 mg for hypertension - Benzonatate for cough - Bupropion 150 mg twice a day for mood - Vitamin D, weekly, for deficiency - Plavix 75 mg for coronary stents - Escitalopram for mood - Ezetimibe 10 mg for cholesterol - Montelukast 10 mg for asthma - Omeprazole 20 mg for acid reflux - Simvastatin 20 mg for cholesterol - Tiotropium for COPD/asthma Diagnostic Results: - Labs: - Hemoglobin A1c: 6.1%, indicating prediabetes. - Total cholesterol: 218 mg/dL. - Bad cholesterol (LDL): 118 mg/dL. - Vitamin D: Deficient. Social History - Nutrition: Reports avoiding processed foods and cold cuts due to high salt content. - Functional Status: Reports low energy and inability to do much besides rest. - Habits: Received RSV and influenza vaccinations. Health Maintenance - Immunizations: Patient reports having received an RSV vaccination and an influenza shot. - Screening: Recent laboratory results were reviewed, identifying prediabetes (HbA1c 6.1%), hyperlipidemia (LDL 118, Total 218), and vitamin D deficiency. - Counseling: Provided education on dietary improvements, including a low-fat diet and avoiding processed/junk foods to manage prediabetes and hyperlipidemia. - Specialist Care: A referral will be made to a wringer machine operator for management of her asthma-COPD overlap syndrome. Patient was informed and verbally consented to the use of an ambient scribe for clinic note documentation during this visit. Vital signs reviewed. Comprehensive history, review of systems, and physical exam completed. Medications, allergies, and problem list reviewed and updated. Counseling provided on nutrition, regular exercise, sleep hygiene, and moderation of alcohol use. Discussed age-appropriate screenings (mammogram, colonoscopy, Pap, bone density) and immunizations (flu, COVID, shingles, Tdap). Screened for depression, fall risk, and home safety; no current concerns. Discussed stress management, dental and vision care, and importance of ongoing preventive follow-up. Routine labs ordered for metabolic and lipid screening. Patient educated on healthy lifestyle and agrees with the plan. [facility] Medical History (Updated 05/26/25 @ 14:34 by Adriel Shelley MD) Vitamin D deficiency Hyperlipidemia Prediabetes Annual physical exam Alcohol abuse History of lung cancer GERD without esophagitis Anxiety and depression Peripheral artery disease COPD (chronic obstructive pulmonary disease) Hypertension, essential, benign Social History Housing: House Patient Tobacco Use Status: Former Tobacco user e-Cigarette/Vaping Use: Never Used service: No Current occupational status: retired Cognitive needs: No Hearing needs: No Vision needs: Yes (Rx glasses) Questionnaire Thrive Questionnaire Date Thrive assessed: 05/15/25 AUDIT C Alcohol Use Questionnaire (AUDIT-C) 1. How often do you have a drink containing alcohol?: 4 or more times a week 2. How many drinks containing alcohol do you have on a typical day when you are drinking?: 1 or 2 (an ounce and a half with dinner) 3. How often do you have six or more drinks on one occasion?: Never Total Score: 4 ERIN-7 AMB Questionnaire ERIN-7 Date ERIN - 7 assessed: 05/15/25 Source: Developed by Drs. Naun Tolbert, Irena Moreno, Otto Prado and colleagues, with an educational ricardo from [employer]. Review of Systems Narrative Review of Systems - Constitutional: Reports fatigue and low energy. - Denies fever and chills. - HEENT: Reports sore throat and dysphonia. - Respiratory: Reports a subsiding cough productive of clear sputum and intermittent dyspnea at rest. - Psychiatric: Reports difficulty sleeping. All systems reviewed & are unremarkable except as reviewed in HPI and above Physical exam (Primary Care) Vital Signs: Last Vital Signs Temp 96.7 F L 05/26/25 14:08 Pulse 67 05/26/25 14:08 Resp 16 05/26/25 14:08 BP 140/60 H 05/26/25 14:08 Pulse Ox 97 05/26/25 14:08 Oxygen Delivery Method Room Air 05/26/25 14:08 BMI result Body Mass Index 27.2 Tobacco/Smoking Status: Tobacco use Status Tobacco use date assessed 05/15/25 05/26/25 14:07 Patient Tobacco Use Status Former Tobacco user 05/26/25 14:07 e-Cigarette/Vaping Use Never Used 05/26/25 14:07 Thrive Assessment: Date of Thrive Assessment Date Thrive assessed 05/15/25 05/26/25 14:07 Narrative Physical Exam General: +Alert and oriented, Well nourished, No acute distress. Eye: Pupils are equal, round and reactive to light, Intact accommodation, Extraocular movements are intact, Normal conjunctiva, Vision unchanged. HENT: Normocephalic, Atraumatic, Tympanic membranes are clear, Normal hearing, Oral mucosa is moist, No pharyngeal erythema, Ear canals patent. Respiratory: Lungs CTA bilaterally, No wheeze, Respirations are non-labored, Lungs sound crystal clear. Cardiovascular: Regular rate, Regular rhythm, S1 auscultated, S2 auscultated, No murmur, Good pulses equal in all extremities, Normal peripheral perfusion, No edema. Gastrointestinal: Soft, Non-tender, Non-distended, Normal bowel sounds, No organomegaly. Musculoskeletal: Normal range of motion, Normal strength, No tenderness, No swelling, No deformity, Normal gait. Integumentary: Warm, Dry, [place], Intact. Neurologic: Alert, Oriented, Normal sensory, Normal motor function, No focal defects, Cranial Nerves II-XII are grossly intact, Normal deep tendon reflexes. Psychiatric: Cooperative, Appropriate mood & affect, Normal judgment. Coding Level of Care Code Est Pt Level 4 (95765) Add On Problem Visit Only Diagnoses URI, acute J06.9 Chronic obstructive pulmonary disease, unspecified COPD type J44.9 COPD type: unspecified COPD Prediabetes R73.03 Hyperlipidemia, unspecified hyperlipidemia type E78.5 Hyperlipidemia type: unspecified Vitamin D deficiency E55.9 Hypertension, essential, benign I10 Peripheral artery disease I73.9 Assessment & Plan Assessment & Plan (1) URI, acute: Comment: - Patient exhibits post-viral symptoms including cough, sore throat, and dysphonia following a recent illness. - Reassurance was provided that symptoms may persist for 6-8 weeks and that clear sputum and absence of fever are favorable signs. - Plan includes symptomatic management: continue benzonatate for cough, rest the throat, use hot water gargles, and drink tea with honey. - The patient may use her albuterol inhaler as needed for dyspnea, up to 4-6 times daily. - Instructed to go to the emergency room for any signs of airway compromise. Code(s): J06.9 - Acute upper respiratory infection, unspecified Category: Medical (2) COPD (chronic obstructive pulmonary disease): Comment: - The patient has a known history of asthma-COPD overlap. - Continue current maintenance therapy with montelukast and tiotropium. - A referral will be placed for the patient to establish care with a wringer machine operator. Code(s): J44.9 - Chronic obstructive pulmonary disease, unspecified Category: Medical Qualifiers: COPD type: unspecified COPD Qualified Code(s): J44.9 - Chronic obstructive pulmonary disease, unspecified (3) Prediabetes: Comment: - Recent HbA1c of 6.1% confirms a diagnosis of prediabetes. - Counseled on dietary modifications, including adherence to a low-fat diet and avoidance of processed foods and junk foods. Code(s): R73.03 - Prediabetes Category: Medical (4) Hyperlipidemia: Comment: - Recent labs showed an elevated total cholesterol of 218 mg/dL and an LDL of 118 mg/dL. - Continue current therapy with simvastatin 20 mg and ezetimibe 10 mg. - Recommended dietary changes, including a low-fat diet. Code(s): E78.5 - Hyperlipidemia, unspecified Category: Medical Qualifiers: Hyperlipidemia type: unspecified Qualified Code(s): E78.5 - Hyperlipidemia, unspecified (5) Vitamin D deficiency: Comment: - Patient has a known history of vitamin D deficiency. - Continue weekly Vitamin D supplementation. Code(s): E55.9 - Vitamin D deficiency, unspecified Category: Medical (6) Hypertension, essential, benign: Comment: - Continue current antihypertensive regimen of amlodipine 10 mg twice daily and benazepril 40 mg. - The patient is actively avoiding high-salt foods. Code(s): I10 - Essential (primary) hypertension Category: Medical (7) Peripheral artery disease: Comment: Underwent stenting at tramadol and currently on Plavix and aspirin Code(s): I73.9 - Peripheral vascular disease, unspecified Category: Medical Plan: Health Maintenance: - Immunizations: Patient reports having received an RSV vaccination and an influenza shot. - Screening: Recent laboratory results were reviewed, identifying prediabetes (HbA1c 6.1%), hyperlipidemia (LDL 118, Total 218), and vitamin D deficiency. - Counseling: Provided education on dietary improvements, including a low-fat diet and avoiding processed/junk foods to manage prediabetes and hyperlipidemia. - Specialist Care: A referral will be made to a wringer machine operator for management of her asthma-COPD overlap syndrome. Patient was informed and verbally consented to the use of an ambient scribe for clinic note documentation during this visit. Plan I discussed with the patient that her lingering symptoms of cough, dysphonia, and fatigue are likely post-viral and can persist for 6 to 8 weeks after an infection like pneumonia or the flu. I reassured her that the absence of fever and production of clear sputum are good signs of recovery. I explained that repeating a chest x-ray soon after pneumonia is not standard practice as inflammation can remain visible for a long time. We reviewed her recent lab results which showed prediabetes, high cholesterol, and vitamin D deficiency. I counseled her on the importance of dietary changes, such as a low-fat diet and avoiding processed foods, to address these issues. I also recommended placing a referral to a wringer machine operator for expert management of her asthma-COPD overlap. I provided clear return precautions, advising her to go to the emergency room if she feels her airway is closing. We confirmed her follow-up appointment is scheduled for August. Orders: Referrals Pulmonology Referral J44.89 - Other specified chronic obstructive pulmonary disease Patient Instructions: - It is normal for symptoms like a cough, sore throat, and voice changes to last for 6 to 8 weeks after an infection. - For your sore throat, rest your voice, gargle with warm water, and try soothing remedies like tea with honey. - You can use your albuterol (rescue) inhaler up to 4 to 6 times per day if you feel short of breath. - Continue to take all your regular medications as prescribed, including those for cough, blood pressure, cholesterol, and mood. - Focus on improving your diet by eating low-fat foods and avoiding processed items and junk food to help with your blood sugar and cholesterol levels. - We are placing a referral for you to see a lung specialist (wringer machine operator); their office will contact you to set up an appointment. - If you feel like your airway is closing or you are having severe difficulty breathing, go to the emergency room immediately. - We will see you at your next scheduled appointment in August.
[2025-05-26 14:08] VITALS: BP 140/60; PULSE 67; RESP 16; TEMP 35.9; O2SAT 97; BMI 27.2
--- OUTSIDE RECORDS SUMMARY | 2025-05-26 17:46 | XMS_ITS | Data Portability ---
Author Organization [facility], [address] Address [address] [place] [address] Assessment No assessment recorded. Plan of Treatment [...] ICD10 Code Diagnosis IMO Codes Diagnosis Note [id number] [address] [place] [address] 02/23/2015 18:35:56 02/23/2015 20:03:19 [id number] [address] [place] [address] 06/05/2017 12:16:53 06/05/2017 13:08:15 [id number] [address] [place] [address] 07/15/2018 19:22:28 07/15/2018 20:29:19 [id number] [address] [place] [address] 12/03/2018 19:26:40 12/03/2018 20:00:04 [id number] [address] [place] [address] 10/23/2020 13:41:04 10/23/2020 14:57:33 [id number] [address] [place] [address] 12/10/2018 19:42:18 12/10/2018 19:55:53 [id number] [address] [place] [address] 10/01/2016 13:08:27 10/01/2016 13:34:25 [id number] [address] [place] [address] 06/03/2018 11:29:30 06/03/2018 11:59:16 [id number] [address] [place] [address] 12/21/2016 12:07:00 12/21/2016 12:48:29 [id number] [address] [place] [address] 10/10/2020 10:26:24 10/10/2020 11:58:18 [id number] [address] [place] [address] 11/03/2016 10:21:59 11/03/2016 11:11:27 Health Concerns Section Related Observation LastModified by Organization Detai ls LastModified Time None Recorded Concern Status LastModified by Organization Details LastModified Time None Recorded Advance Directives Directive None Recorded Payers Insurance Date Sequence Insurance Name Policy Number Policy Jenkins Covered Member ID Jenkins Member ID Guarantor Name 06/30/2022 1 [facility] [id number] 01 Carmen Grace [id number] Carmen Grace OBGyn Episode No OBEpisode recorded.
--- OUTSIDE RECORDS SUMMARY | 2025-05-26 17:46 | XMS_ITS | Encounter Summary ---
Author Organization [facility] Address [address] [place] [address] Care Team Providers Care Deadener Name Role Phone Adriel Shelley MD Primary Care Provider [phone] Encounter Details Date Type Department Care Team ([facility] Contact Info) Description 04/15/2025 Results Follow-Up Vascular Surgery - [place] [address] [place] [phone] Peggy Cordoba PA [address] [facility] [address] [place] [address] Social History Tobacco Use Types Packs/Day Years [...] your loved ones. For example, child care group leader or elderly care for an older adult? [...] Description 04/06/2026 10:00 AM EST Office Visit [facility] Hematology Oncology [address] [place] [address] Kathy Reneie, DO [address] [place] [address] 04/13/2026 12:00 PM EST Ancillary Procedure [facility] Cardiology [facility] - [facility] [address] [facility] [address] [place] [address] 04/14/2026 8:30 AM EST Ancillary Procedure [facility] - [facility] [address] [facility] [address] [place] [address] 05/14/2026 10:30 AM EST Office Visit Vascular Surgery - [place] [address] [facility] [address] [place] [address] Ronen Vernon MD [address] [place] [phone] documented as of this encounter Visit Diagnoses Not on filedocumented in this encounter Additional Health Concerns Assessment Noted Time PHQ-9 Depression Total Score: 8 09/10/19 25 7:31 PM EDT documented as of this encounter Care Teams Deadener Relationship Specialty Start Date End Date Adriel Shelley MD [address] [place] [address] Dr [address] [place] [address] PCP - General Internal Medicine 05/14/25 documented as of this encounter
--- OUTSIDE RECORDS SUMMARY | 2025-05-26 17:46 | XMS_ITS | Clinical Summary ---
Author Organization [facility] Address [address] [place] [address] Phone Care Team Providers Care Certified Nurse Name Role Phone Adriel Shelley MD Primary Care Provider [phone] Allergies Active Allergy Reactions Criticality Noted Date Comments Cephalexin Diarrhea,Nausea Only,GI intolerance,Unknown 03/27/2018 Codeine Nausea And Vomiting,Dizziness,GI intolerance,Unknown Medium 04/26/2016 Epinephrine 05/20/2024 Levofloxacin Diarrhea,Nausea Only,GI intolerance,Unknown 03/27/2018 Ksyvugk-Qms-Lqg Reductase Inhibitors Medium 06/04/2019 Muscles aches Medications [...] bedtime. 90 tablet 1 09/23/19 25 Active amLODIPine (NORVASC) 10 mg tablet [...] once daily 90 capsule 04/13/20 25 Active buPROPion SR (WELLBUTRIN SR) 150 mg 12 hr tablet Take 1 tablet by mouth twice daily 180 tablet 1 05/26/20 25 Active buPROPion SR (WELLBUTRIN SR) 150 mg 12 hr tablet Take 1 tablet (150 mg total) by mouth 2 (two) times a day. 180 tablet 1 10/16/19 25 025 Discontinued Active Problems Problem Noted Date Diagnosed Date Bradycardia 01/31/2025 Overview (01/31/2025): See note January 30, 2025, beta-blockade discontinued. Superior mesenteric artery stenosis 06/16/2024 Mesenteric ischemia 06/16/2024 History of lung cancer 06/04/2024 Assessment & Plan (05/16/2025 12:03 PM EST): Ms. Grace is a 79-year-old female who has had multiple bilateral lung [...] most recent surveillance chest CT scan done April 2025 shows multiple new semisolid and ground glass nodules throughout the lungs, most predominantly in the upper aspect of the left lung. She has no concerning mediastinal adenopathy or pleural effusion. I discussed the findings of her most recent imaging with the patient and explained that this is most likely related to her recently diagnosed pneumonia. Will order a chest CT to be done in 3 months, July 2025, to ensure improving or resolution of these new areas of nodularity especially in the setting of her multiple bilateral lung cancers. The patient will have a follow-up visit after that CT scan. Assessment & Plan (11/06/2024 11:45 AM EDT): [...] general and how their size, shape, and manager of change time determine her level of suspicion for [...] general and how their size, shape, and manager of change time factor level of suspicion for malignancy. [...] We will also have her see a wellness instructor for a risk assessment given she has significant peripheral vascular disease and the coincidence of peripheral vascular disease and coronary artery disease. Resolved Problems Problem Noted Date Diagnosed Date Resolved Date Primary cancer of left upper lobe of lung 09/25/2024 05/16/2025 Primary cancer of right upper lobe of lung 02/21/2022 06/04/2024 Adenocarcinoma of lung 12/06/201806/04 Overview (08/06/2023): Diagnosed November 2017, s/p VATS for upper and lower lobe resection and radiation Follows with [facility] Oncology Encounters Date Type Department Care Team Description 05/14/2025 10:30 AM EST Office Visit Thoracic Surgery - [place] [address] [facility] [address] [place] [phone] Raine Ballard PA History of lung cancer (Primary Dx); Multiple pulmonary nodules 05/11/2025 11:00 AM EST Office Visit Vascular Surgery - [place] [address] [place] [phone] Ronen Vernon MD PAD (peripheral artery disease) (CMS/HCC V24) (Primary Dx); Mesenteric ischemia (CMS/HCC V24); Superior mesenteric artery stenosis (CMS/HCC V24); Chronic mesenteric ischemia (CMS/HCC V24) 05/08/2025 9:11 AM EST - 05/08/2025 11:59 PM EST Hospital Encounter [facility] CT Scan [address] [place] [phone] PAD (peripheral artery disease) (CMS/HCC V24); S/P angioplasty with stent Discharge Disposition: Home or Self Care 05/08/2025 9:10 AM EST - 05/08/2025 11:59 PM EST Hospital Encounter [facility] CT Scan [address] [place] [phone] History of lung cancer; Multiple pulmonary nodules Discharge Disposition: Home or Self Care 05/08/2025 Results Follow-Up Vascular Surgery - [place] [address] [place] [address] Celi Reyez PA 04/15/2025 Results Follow-Up Vascular Surgery - [place] [address] [place] [phone] Peggy Cordoba PA 04/13/2025 11:15 AM EST Lab Draw Station - 299 [facility] 299 [place] [phone] PAD (peripheral artery disease) ([facility] V24); S/P angioplasty with stent 04/13/2025 10:30 AM EST Office Visit Vascular Surgery - [place] [address] [facility] [address] [place] [phone] Ronen Vernon MD PAD (peripheral artery disease) ([facility] V24) (Primary Dx); S/P angioplasty with stent 04/08/2025 10:00 AM EST Ancillary Procedure [facility] - [facility] 101 300 [facility] 101 [place] [phone] Atherosclerosis; PAD (peripheral artery disease) ([facility] V24) 04/06/2025 10:00 AM EST Office Visit [facility] Hematology Oncology [address] [place] [phone] Kathy Rene DO Primary cancer of left upper lobe of lung ([facility] V24, [facility] V28) (Primary Dx) 03/10/[address] [phone] Rossi Carlos MD 03/09/2025 1:57 PM EDT - 03/09/2025 11:59 PM EDT Hospital Encounter [address] [phone] Neck pain; Acute right ankle pain Discharge Disposition: Home or Self Care 03/09/2025 1:30 PM EDT Office Visit [address] [phone] Marquis Cardona NP Neck pain (Primary Dx); Acute right ankle pain; Essential hypertension 03/09/2025 Results Follow-Up Adult [address] [phone] Marquis Cardona NP 03/09/2025 Telephone Adult Medicine [address] [phone] Rossi Carlos MD from Last 3 Months [...] bx.-benign OTHER SURGICAL HISTORY 12/26/2022 Bilateral PROCEDURE: RI REVASCULARIZATION ILIAC ARTERY ANGIOP 1ST VSL OTHER SURGICAL HISTORY 12/26/2022 Bilateral PROCEDURE: RI REVASC INTRAVASC LITHOTRIPSY OTHER SURGICAL HISTORY 01/25/2023 Left PROCEDURE: RI TEAEC W/GRAFT POPLITEAL ARTERY OTHER SURGICAL HISTORY 07/03/2023 PROCEDURE: RI REVSC OPN/PRG FEM/POP W/ANGIOPLASTY UNI OTHER SURGICAL HISTORY 07/03/2023 PROCEDURE: RI INTRAVASCULAR US NONCORONARY RS&I INTIAL VESSEL OTHER SURGICAL HISTORY 07/03/2023 PROCEDURE: RI INTRAVASCULAR US NONCORONARY RS&I ADDL VESSEL OTHER SURGICAL HISTORY 07/03/2023 PROCEDURE: ULTRASOUND GUIDANCE FOR VASCULAR AC OTHER SURGICAL HISTORY 10/24/2023 Left PROCEDURE: RI THORACOSCOPY W/LOBECTOMY SINGLE LOBE; COMMENT: KENNY Medical [...] lower lobe resection and radiation Follows with [facility] Oncology Anxiety DX:Anxiety Depression 05/19/2015 [...] of T12 vertebra ([facility] V24, [facility] V28) 02/25/2019 DX:Compression fracture of T12 vertebra ([facility]); COMMENT: S/p kyphoplasty 10/[address] [facility] History of lung cancer 03/13/2022 DX:Histor y of lung cancer Chest pain 09/26/2023 DX:Chest pain Pre-op exam 09/26/2023 DX:Pre-op exam Vocal cord paralysis left Primary cancer of right uppe r lobe of lung ([facility] V24, [facility] V28) 02/21/2022 Primary cancer of left upper lobe of lung ([facility] V24, [facility] V28) 09/25/2024 Family History Medical History Relation Name Comments [...] for your loved ones. For example, child development assistant or elderly care for an older [...] 04/06/2026 10:00 AM EST Office Visit [facility] Hematology Oncology [address] [place] [phone] Kathy Rene, DO [address] [place] [address] 04/13/2026 12:00 PM EST Ancillary Procedure [facility] - [facility] [address] [facility] [address] [place] [address] 04/14/2026 8:30 AM EST Ancillary Procedure [facility] - [facility] [address] [facility] [address] [place] [address] 05/14/2026 10:30 AM EST Office Visit Vascular Surgery - [place] [address] [place] [address] Ronen Vernon MD [address] [place] [phone] Health Maintenance Due Date Last Done Comments [...] this topic Medical Devices Implanted Type Area Pier Master Assistant Device Identifier Shelf Expiration Date Model / Serial / Lot Stent Graft Endovas 6x19mm 6f 135cm - [id number] - [id number] Implanted:Qty : 1 on 06/24/2024 by Ronen Vernon MD at [facility] Peripheral Vasc Drug Coated Stents N/A: Arterial [employer] [id number] 01/28/2027 [id number] / [id number] / Procedures Procedure Name Priority Date/Time Associated Diagnosis Comments CT ANGIO ABDOMINAL AORTA W RUNOFF STAT 05/08/2025 9:58 AM EST PAD (peripheral artery disease) ([facility] V24) S/P angioplasty with stent CT CHEST WO CONTRAST Routine 05/08/2025 9:54 AM EST History of lung cancer Multiple pulmonary nodules EXTERNAL CLINICAL LAB 05/06/2025 EXTERNAL XRAY REPORT 05/06/2025 EXTERNAL XRAY REPORT 05/06/2025 EXTERNAL CLINICAL LAB 04/29/2025 BUN Routine 04/13/2025 11:14 AM EST PAD (peripheral artery disease) ([facility] V24) S/P angioplasty with stent CREATININE, SERUM Routine 04/13/2025 11: 14 AM EST PAD (peripheral artery disease) ([facility] V24) S/P angioplasty with stent VAS US DUPLEX LOWER EXT ARTERIES BILAT WITH NICK Routine 04/08/2025 10:51 AM EST Atherosclerosis PAD (peripheral artery disease) ([facility] V24) EXTERNAL XRAY REPORT 03/11/2025 EXTERNAL XRAY REPORT 03/11/2025 XR CERVICAL SPINE 4-5 VIEWS Routine 03/09/2025 2:04 PM EDT Neck pain Acute right ankle pain LIPID PANEL WITH REFLEX TO DIRECT LDL Routine 01/30/2025 12:20 PM EDT Other hyperlipidemia [facility] DEXA AXIAL SKELETON Routine 09/28/2022 4:50 [...] Signed Date: 05/08/2025 10:59 ET Workstation ID: [id number] Transcribed By: Self Edit Transcribed Date: 05/08/2025 [...] fixation hardware is noted. Procedure Note Domenico Hgih MD - 05/08/2025 PROCEDURE: CTA abdomen and [...] Signed Date: 05/08/2025 10:59 ET Workstation ID: [id number] Transcribed By: Self Edit Transcribed Date: 05/08/2025 10:31 ET us Ronen Vernon MD IMG CT PROCEDURES Final [...] Signed Date: 05/11/2025 13:10 ET Workstation ID: [id number] Transcribed By: Self Edit Transcribed Date: 05/11/2025 [...] semisolid nodule in the right upper lobe [id number] mm, stable compared to prior. Scarring along [...] Signed Date: 05/11/2025 13:10 ET Workstation ID: [id number] Transcribed By: Self Edit Transcribed Date: 05/11/2025 13:05 ET Raine RIBEIRO IMG CT PROCEDURES Final Resul t * External Xray Report (05/06/2025) Only the most recent of4 resultswithin the time period is included. Anatomical Region Laterality Modality Radiographic Leatha ging us Provider [facility] IMG XR PROCEDURES Final Result * External clinical lab (05/06/2025) Only the most recent of2 resultswithin the time period is included. Provider [facility] LAB BLOOD ORDERABLES Fin al Result * Creatinine (04/13/2025 11:14 AM EST) Creatinine 0.82 0.50 - 1.10 mg/dL LAB CHEMISTRY METHOD 04/13/2025 1:39 PM EST [facility] eGFR 73 >=60 mL/min/1. 73m2 LAB CHEMISTRY METHOD 04/13/2025 1:39 PM EST [facility] Comment:Calculation based on the Chronic Kidney Disease Epidemiology Collaboration (CKD-EPI) equation refit without adjustment for race. Blood Venous blood specimen / Unknown Venipuncture / Unknown 04/13/2025 11:14 AM EST 04/13/2025 11:57 AM EST us Ronen Vernon MD LAB BLOOD ORDERABLES Final Resu lt [facility] [address] [place] [address], * BUN (04/13/2025 11:14 AM EST) BUN 18 5 - 25 mg/dL LAB CHEMISTRY METHOD 04/13/2025 1:39 PM EST [facility] Blood Venous blood specimen / Unknown Venipuncture / Unknown 04/13/2025 11:14 AM EST 04/13/2025 11:57 AM EST us Ronen Vernon MD LAB BLOOD ORDERABLES Final Resu lt [facility] [address] [place] [address], [place] [phone] * Vascular US duplex lower extremity arteries [...] PSV 72 cm/s CV VAS LAB Left BIOMEDICAL ENGINEERING AIDE prox sys PSV 463 cm/s CV VAS [...] PSV 112 cm/s CV VAS LAB Right BIOMEDICAL ENGINEERING AIDE prox sys PSV 322 cm/s CV VAS [...] The mid peroneal artery has biphasic flow. Biomedical Engineering Technician Details A tamayo scale, color and doppler [...] Signed Date: 03/09/2025 15:32 ET Workstation ID: [id number] Transcribed By: Self Edit Transcribed Date: 03/09/2025 [...] Signed Date: 03/09/2025 15:32 ET Workstation ID: [id number] Transcribed By: Self Edit Transcribed Date: 03/09/2025 15:22 ET us Marquis Cardona MSW IMG XR PROCEDURES Final Resu lt * (ABNORMAL) Lipid panel with reflex to direct LDL (01/30/2025 12:20 PM EDT) Cholesterol 228(H) 0 - 200 mg/dL LAB CHEMISTRY METHOD 01/30/2025 8:15 PM EDT [facility] Triglycerides 139 0 - 150 mg/dL LAB CHEMISTRY METHOD 01/30/2025 8:15 PM EDT [facility] HDL 89 >=40 mg/dL LAB CHEMISTRY METHOD 01/30/2025 8:15 PM EDT [facility] LDL Calculated 111(H) 0 - 100 mg/dL LAB CHEMISTRY METHOD 01/30/2025 8:15 PM EDT [facility] Comment:Estimated LDL Calcul ated using equation: Total cholesterol - HDL cholesterol - (Triglycerides/5) VLDL Cholesterol Kt 27.8 mg/dL LAB CHEMISTRY METHOD 01/30/2025 8:15 PM EDT [facility] Non HDL Chol. (LDL+VLDL) 139 <145 mg/dL LAB CHEMISTRY METHOD 01/30/2025 8:15 PM EDT [facility] Chol/HDL Ratio 2.6 0.0 - 4.4 LAB CHEMISTRY METHOD 01/30/2025 8:15 PM EDT [facility] Blood Venous blood specimen / Unknown Venipuncture / Unknown 01/30/2025 12:20 PM EDT 01/30/2025 12:20 PM EDT us Rossi Carlos MD LAB BLOOD ORDERABLES Final Resul t [facility] [address] [place] [address], * CARMEN DEXA AXIAL SKELETON (09/28/2022 4:50 PM EDT) Anatomical Region Laterality Modality Mammography 09/27/2022 9:52 AM EDT Narrative 09/28/2022 4:50 PM EDT [facility] Diagnostic Imaging Department [address] [place] [address] Patient: CARMEN GRACE/Age/Sex: 1945 - 76 - F Unit#: [id number] Location/Status: SPDIMAM/REG CLI Mnemonic/Ordering Site: MAMDEXAAX/SPMAM Ordering Physician: ROSSI CARLOS MD Carmen Dexa Axial Skeleton - 09/27/22 - 1042 History: Low estrogen state due to menopause. Current smoker. Parent hip fracture. Chronic glucocorticoid use. Adult fracture (ankle, heel, wrist). On omeprazole. Comparison: 02/02/16 Findings: Bone densitometry is performed utilizing dual energy x-ray absorptiometry (DXA) in the Verdezyne unit. The lumbar spine and proximal femora [...] 55.9 percent Hip 44.4 percent. IMPRESSION: Osteopenia. [id number] Dictating Physician: CHANTELLE MENDEZ MD Electronically Signed by: CHANTELLE MENDEZ MD Dic Date/Time: 09/28/22 1648 Sign date/Time: 09/28/22 1650 Procedure Note Chantelle Mendez MD - 06/29/2023 [facility] Diagnostic Imaging Department [address] [place] [address] Patient: CYNDICARMEN GALLAGHER Melissa Savage/Age/Sex: 1945 - 76 - F Unit#: [id number] Location/Status: [facility]/REG CLI Mnemonic[facility] Ordering Physician: ROSSI CARLOS MD Carmen Dexa Axial Skeleton - 09/27/22 - 1042 History: Low estrogen state due to menopause. Current smoker. Parent hip fracture. Chronic glucocorticoid use. Adult fracture (ankle, heel, wrist).On omeprazole. Comparison: 02/02/16 Findings: Bone densitometry is performed utilizing dual energy x-ray absorptiometry(DXA) in the Verdezyne unit. The lumbar spine and proximal femora [...] 55.9 percent Hip 44.4 percent. IMPRESSION: Osteopenia. [id number] Dictating Physician: CHANTELLE MENDEZ MD Electronically Signed by: CHANTELLE MENDEZ MD Dic Date/Time: 09/28/22 1648 Sign date/Time: 09/28/22 1650 Rossi Carlos MD IMG BI PROCEDURES Final Result * Colonoscopy (08/31/2017) Colonoscopy negative Anatomical Region Laterality Modality Other Gene Reilly MD HEALTH MAINTENANCE Final Result * Hepatitis C Screening (07/02/2015) Hepatitis C Screening abstracted Gene Reilly MD HEALTH MAINTENANCE Final Result from Last 3 [...] currently active code status orders. Care Teams Certified Nurse Relationship Specialty Start Date End Date Adriel Shelley MD [address] [place] [address] [address] [place] [address] PCP - General Internal Medicine 05/14/25
--- OUTSIDE RECORDS SUMMARY | 2025-05-26 17:46 | XMS_ITS ---
Author Organization [facility] Address [address] [place] [address] Phone Care Team Providers Care Tree Deadener Name Role Phone Adriel Shelley MD Primary Care Provider [phone] Active Problems Problem Noted Date Diagnosed Date [...] her after the scan ordered by oncology. [place] 12/17/2023 Overview (02/27/2024): Last Assessment & Plan: [...] Overview (08/06/2023): S/p kyphoplasty 10/2018 follows with [facility] Essential hypertension 11/25/2018 Overview (08/06/2023): [...] general and how their size, shape, and private branch exchange service advisor time determine her level of suspicion for [...] general and how their size, shape, and private branch exchange service advisor time factor level of suspicion for malignancy. [...] graduation to attend for her granddaughter and september and does not want anything done at [...] We will also have her see a cloth shearer for a risk assessment given she has [...] lower lobe resection and radiation Follows with [facility]
--- OUTSIDE RECORDS SUMMARY | 2025-05-26 17:47 | XMS_ITS | Patient Health Record ---
Author Organization [facility] Address [address] [facility] [place] [address] Care Team Providers Care Water Hydrant Installer Name Role Phone Breanna VÁSQUEZ, Zeke Blake Primary Care Provider Unav ailable Black, Shiela Unavailable [phone] Allergies Allergen (clinical drug ingredient) Drug/Non Drug [...] Ulcer of toe of right foot (disorder) (359700248 [id number]) Skin ulcer of toe of right foot, limited to breakdown of skin (L97.511) Active confirmed Problem Ulcer of toe of left foot (disorder) (100049052 73908865) Skin ulcer of toe of left foot, limited to breakdown of skin (L97.521) Active confirmed Nonapplicable Problem Skin ulcer of toe of right foot with fat layer exposed (L97.512) Active confirmed Problem Skin ulcer of toe of left foot with fat layer exposed (L97.522) Active confirmed Plan Of Treatment Pending Test Test Name Order Date 58791-Eenznavl Plate 03/09/2023 66381- Debride <25 sq cm 03/26/2023 Insurance Providers Payer Name Payer Address Payer Phone Subscriber Number Group Number Insured Name Patient Relationship to Insured Coverage Start Date Coverage End Date [employer] [place] [employer] Advantage [address] [place] [address] [phone] [id number] Carmen Grace Self - patient is the insured Medical (General) History Medical History History ICD Code Anxiety Broken bones CAD (Cholesterol) Cancer Cataracts Depression High blood pressure Lung disease Reflux ( GERD) Vascular phlebitis (clots) Vascular grafts Joint implants/screws Surgical History Surgery Date(Month/Year) femoropopliteal bypass graft Gall bladder removal 2023 Lung Cancer Surgery 09/2023
--- OUTSIDE RECORDS SUMMARY | 2025-05-26 17:47 | XMS_ITS | Clinical Summary ---
Author Organization [facility] Address [address] [place] [address] Phone Care Team Providers Care Dental Officer Name Role Phone JeradParminder Ursula Angie DO [...] REPLACEMENT [employer] [place] MED[employer] HMO REPLACEMENT [facility] MEDICARE HMO REPLACEMENT [employer] [place] [employer] HMO REPLACEMENT Care Teams Dental Officer Relationship Specialty Start Date End Date Ursula Alcala DO [address] [place] [address] PCP - General Internal Medicine 12/24/18 Additional Source Comments The information contained in this document represents components of the legal health record. It is not the complete legal health record.[facility]
--- OUTSIDE RECORDS SUMMARY | 2025-05-26 17:47 | XMS_ITS | Encounter Summary ---
Author Organization [facility] Prior to 10/25/[address] [place] [address] Care Team Providers Care Conciliation Court Judge Name Role Phone Zeke Carlos MD Primary Care Provider [phone] Encounter Details Date Type Department Care Team Description 02/18/[address] [facility] Oncology Services [address] [place] [address] Smita Martinez RN Social History Tobacco Use [...] on filedocumented in this encounter Care Teams Conciliation Court Judge Relationship Specialty Start Date End Date Zeke Carlos MD PCP - General Internal Medicine 11/23/21 documented as of this encounter
--- OUTSIDE RECORDS SUMMARY | 2025-05-26 17:47 | XMS_ITS | Clinical Summary ---
Author Organization [facility] Prior to 10/25/[address] [place] [address] Care Team Providers Care Supervisor Pastry Name Role Phone Zeke Carlos MD Primary Care Provider [phone] Allergies Active Allergy Reactions Criticality Noted Date [...] age to complete this topic Care Teams Supervisor Pastry Relationship Specialty Start Date End Date Zeke Carlos MD PCP - General Internal Medicine 11/23/21
--- OUTSIDE RECORDS SUMMARY | 2025-05-26 17:47 | XMS_ITS | Encounter Summary ---
Author Organization [facility] Address [address] [place] [address] Care Team Providers Care Packing House Supervisor Name Role Phone Adriel Shelley MD Primary Care Provider [phone] Encounter Details Date Type Department Care Team ([facility] st Contact Info) Description 05/08/2025 Results Follow-Up Vascular Surgery - [place] [address] [facility] [address] [place] [address] Celi Reyez PA [address] [place] [phone] Social History Tobacco Use Types Packs/Day Years [...] care for your loved ones. For example, teacher early childhood development or elderly care for an older adult? [...] Description 04/06/2026 10:00 AM EST Office Visit [facility] Hematology Oncology [address] [place] [address] Kathy Reneie, DO [address] [place] [address] 04/13/2026 12:00 PM EST Ancillary Procedure [facility] Cardiology [facility] [address] [facility] [address] [place] [address] 04/14/2026 8:30 AM EST Ancillary Procedure [facility] Cardiology [facility] [address] [facility] [address] [place] [address] 05/14/2026 10:30 AM EST Office Visit Vascular Surgery - [place] [address] [facility] [address] [place] [address] Ronen Vernon MD [address] [place] [phone] documented as of this encounter Visit Diagnoses Not on filedocumented in this encounter Additional Health Concerns Assessment Noted Time PHQ-9 Depression Total Score: 8 09/10/19 25 7:31 PM EDT documented as of this encounter Care Teams Packing House Supervisor Relationship Specialty Start Date End Date Adriel Shelley MD [address] [place] [address] [address] [place] [address] PCP - General Internal Medicine 05/14/25 documented as of this encounter
--- OUTSIDE RECORDS SUMMARY | 2025-05-26 17:47 | XMS_ITS | Encounter Summary ---
Author Organization [facility] Prior to 10/25/[address] [place] [address] Care Team Providers Care Supply Controller Name Role Phone Zeke Carlos MD Primary Care Provider [phone] Encounter Details Date Type Department Care Team Description 04/25/2021 E-Visit [facility] Oncology Services [address] [place] [address] Aki Peña MD Social History Tobacco Use [...] on filedocumented in this encounter Care Teams Supply Controller Relationship Specialty Start Date End Date Zeke Carlos MD PCP - General Internal Medicine 11/23/21 documented as of this encounter
--- OUTSIDE RECORDS SUMMARY | 2025-05-26 17:47 | XMS_ITS | Data Portability ---
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 Procedures Surgical History Date Name Laterality Status Provider Name and Address Organization Details Recorded Time 03/17/20 24 Fiberoptic Laryngoscopy (Comprehensive) completed Jaquelin Pickard [place] - [facility] 03/17/2024 16:06:41 Appendectomy completed Obdulia Tate [facility] 03/17/2024 15:29:13 Cataract Surgery completed Obdulia Tate [place] [facility] 03/17/2024 15:29:18 Hysterectomy completed Obdulia Tate [place] [facility] 03/17/2024 15:29:25 lithotripsy completed Obdulia Tate [facility] 03/17/2024 15:29:33 lobectomy of lung completed Obdulia Tate [facility] 03/17/2024 15:29:51 Imaging Results None recorded. [...] Updated DateTime 06/18/2024 165.1 cm 22 kg/m2 38249.19 g Fady Cotto [facility] 06/18/2024 10:30:05 Social History None recorded. [...] ICD10 Code Diagnosis IMO Codes Diagnosis Note [id number] FLOR CONDE MD [facility] [address] [address] 03/17/2024 15:12:42 03/17/2024 17:01:30 Paralysis of left vocal cord 688502332 J38.01 History of primary malignant neoplasm of lung 384490375 Z85.118 Hoarse 35695541 R49.0 [id number] FLOR CONDE MD [facility] [address] [address] 06/18/2024 10:13:53 06/18/2024 10:51:40 Paralysis of left vocal cord 568235019 J38.01 Patient appears to have a well [...] fold is paralyzed but compensate d. Hoarse 70683985 R49.0 History of primary malignant neoplasm of lung 859209947 Z85.118 follow with thoracic surgery Health Concerns Section Related Observation LastModified by Organization Detai ls LastModified Time None Recorded Concern Status LastModified by Organization Details LastModified Time None Recorded Advance Directives Directive None Recorded Payers Insurance Date Sequence Insurance Name Policy Number Policy Jenkins Covered Member ID Jenkins Member ID Guarantor Name 07/04/2024 1 [facility] [id number] 01 Carmen Grace [id number] Carmen Grace 07/04/2024 1 [facility] - MEDICARE ADVANTAGE PLAN (MEDICARE REPLACEMENT HMO) [id number] Carmen Grace [id number] Carmen Grace Notes Date Note Type Note [...] throat, hemoptysis, nor fevers. FLOR SHETH MD [address] [place] [address], [phone], [facility] - [facility] 03/17/2024 16:52:26 06/18/2024 text/html ROS as [...] at 06/04/2024 10:36 AM MARIO SHETH MD [address] [place] [address], [phone], [facility] - [facility] 06/18/2024 10:49:44 OBGyn Episode No OBEpisode recorded.
== END 2025-05-26 14:29 | disposition home or self-care (01) ==
LOC: HO.HMCHD 13:57
PROVIDERS: PCP Student in an Organized Health Care Education/Training Program; Visit Provider Student in an Organized Health Care Education/Training Program
DX: J06.9 Acute upper respiratory infection, unspecified (principal); J44.9 Chronic obstructive pulmonary disease, unspecified; R73.03 Prediabetes; E78.5 Hyperlipidemia, unspecified; E55.9 Vitamin D deficiency, unspecified; I10 Essential (primary) hypertension; I73.9 Peripheral vascular disease, unspecified

== ENCOUNTER → 2025-05-26 13:56 | Outpatient (BNVA) | payer MEDICARE, SELFPAY | PROVIDERS: PCP Student in an Organized Health Care Education/Training Program; Visit Provider Student in an Organized Health Care Education/Training Program | DX: J06.9 Acute upper respiratory infection, unspecified (principal); J44.9 Chronic obstructive pulmonary disease, unspecified; R73.03 Prediabetes; E78.5 Hyperlipidemia, unspecified; E55.9 Vitamin D deficiency, unspecified; I10 Essential (primary) hypertension; I73.9 Peripheral vascular disease, unspecified | CPT/HCPCS: 99212 ==